=== PATIENT | female | born 1970 | race African-American/Black ===

== ENCOUNTER 2016-06-25 15:48 | Emergency (ER) | payer SELFPAY ==
[~2016-06-25] VITALS: Ht 152.4 cm; Wt 122.2 kg
[~2016-06-25 15:48] MED LIST: ALBU18HF2 IH; FLUT1DIS3 ORAL INH; HYDR12.54 PO; LISI40TA4 PO; METF500T4 PO; PRED10TA PO
[2016-06-25 15:52] VITALS: Ht 152.4 cm; Wt 122.2 kg
--- OUTSIDE RECORDS SUMMARY | 2016-06-25 15:52 | XMS REPORT | Continuity Of Care Document ---
Author Author [facility] Organization [facility] Address [address] [place] [address] Phone Care Team Providers Care De Alcholizer Name Role Phone MARCELA ZULETA MD CP LYNN ODONNELL, R AT [phone] MICHELLE ODONNELL, C AD Results Lab Results Visit/Account #[id number] (November 23, 2013 2:01pm - November 24, 2013 12:38pm) Test Result Date/Time POCGL POCGL(70-105 MG/DL) 307 MG/DL November 23, 2013 11:55pm 182 MG/DL November 24, 2013 7:05am 44117-7: COMPLETE BLOOD COUNT WITH DIFF WHITE BLOOD COUNT(4.0-11.0 10E3/UL) 3.2 10E3/UL November 23, 2013 2:29pm RED BLOOD COUNT(4.00-5.20 10E6/UL) 4.70 10E6/UL November 23, 2013 2:29pm HEMOGLOBIN(12.0-16.0 G/DL) 14.6 G/DL November 23, 2013 2:29pm HEMATOCRIT(36.0-46.0 %) 40.2 % November 23, 2013 2:29pm 59257-2: MEAN CORPUSCULAR VOLUME(82.0-100.0 FL) 85.5 FL November 23, 2013 2:29pm 03464-6: MEAN CORPUSCULAR HEMOGLOBIN(26.0-34.0 PG) 31.1 PG November 23, 2013 2:29pm MEAN CORPUSCULAR HGB CONC(31.5-36.5 G/DL) 36.3 G/DL November 23, 2013 2:29pm RED CELL DISTRIBUTION WIDTH(11.5-14.5 %) 12.5 % November 23, 2013 2:29pm 777-3: PLATELET COUNT(150-450 10E3/UL) 262 10E3/UL November 23, 2013 2:29pm MEAN PLATELET VOLUME(8.2-12.4 FL) 9.8 FL November 23, 2013 2:29pm 770-8: NEUTROPHILS % (AUTO)(40-70 %) 45 % November 23, 2013 2:29pm LYMPHOCYTES % (AUTO)(15-45 %) 39 % November 23, 2013 2:29pm 5905-5: MONOCYTES % (AUTO)(2-10 %) 6 % November 23, 2013 2:29pm 713-8: EOSINOPHILS % (AUTO)(0-6 %) 8 % November 23, 2013 2:29pm 706-2: BASOPHILS % (AUTO)(0-1 %) 1 % November 23, 2013 2:29pm 91058-4: IMMATURE GRANS % (AUTO)(0-0 %) 0 % November 23, 2013 2:29pm NUCLEATED RBCS (AUTO)(0-0 %) 0 % November 23, 2013 2:29pm 751-8: NEUTROPHILS # (AUTO)(2.5-7.5 10E3/UL) 1.5 10E3/UL November 23, 2013 2:29pm 46975-5: LYMPHOCYTES # (AUTO)(1.0-4.0 10E3/UL) 1.2 10E3/UL November 23, 2013 2:29pm 742-7: MONOCYTES # (AUTO)(0.2-0.8 10E3/UL) 0.2 10E3/UL November 23, 2013 2:29pm 711-2: EOSINOPHILS # (AUTO)(0.0-0.4 10E3/UL) 0.3 10E3/UL November 23, 2013 2:29pm 704-7: BASOPHILS # (AUTO)(0.0-0.2 10E3/UL) 0.0 10E3/UL November 23, 2013 2:29pm IMMATURE GRANS # (AUTO)(0.0-0.0 10E3/UL) 0.0 10E3/UL November 23, 2013 2:29pm DIFF TYPE AUTOMATED November 23, 2013 2:29pm 86764-3: COMPLETE BLOOD COUNT WHITE BLOOD COUNT(4.0-11.0 10E3/UL) 4.5 10E3/UL November 24, 2013 2:16am RED BLOOD COUNT(4.00-5.20 10E6/UL) 4.47 10E6/UL November 24, 2013 2:16am HEMOGLOBIN(12.0-16.0 G/DL) 14.0 G/DL November 24, 2013 2:16am HEMATOCRIT(36.0-46.0 %) 38.6 % November 24, 2013 2:16am 28930-6: MEAN CORPUSCULAR VOLUME(82.0-100.0 FL) 86.4 FL November 24, 2013 2:16am 68547-5: MEAN CORPUSCULAR HEMOGLOBIN(26.0-34.0 PG) 31.3 PG November 24, 2013 2:16am MEAN CORPUSCULAR HGB CONC(31.5-36.5 G/DL) 36.3 G/DL November 24, 2013 2:16am RED CELL DISTRIBUTION WIDTH(11.5-14.5 %) 12.4 % November 24, 2013 2:16am 777-3: PLATELET COUNT(150-450 10E3/UL) 221 10E3/UL November 24, 2013 2:16am MEAN PLATELET VOLUME(8.2-12.4 FL) 9.6 FL November 24, 2013 2:16am NUCLEATED RBCS (AUTO)(0-0 %) 0 % November 24, 2013 2:16am 48191-0: PROTHROMBIN TIME WITH INR PROTHROMBIN TIME(12.1-14.0 SEC) 13.5 SEC November 23, 2013 2:36pm 38872-4: INR 1.05 Result Comments: INR reference interval applies to patients on anticoagulant therapy. Suggested INR therapeutic range for oral anticoagulant therapy: (Stabilized anticoagulated patients) Routine Therapy: 2.0 to 3.0 Recurrent Myocardial Infarction: 2.5 to 3.5 Mechanical Prosthetic Valves: 2.5 to 3.5 November 23, 2013 2:36pm BASIC METABOLIC PANEL 75824-6: GLUCOSE(70-110 MG/DL) 124 MG/DL November 23, 2013 2:46pm 205 MG/DL November 24, 2013 2:28am BLOOD UREA NITROGEN(6-20 MG/DL) 11 MG/DL November 23, 2013 2:46pm 15 MG/DL November 24, 2013 2:28am 66554-7: CREATININE(0.50-1.20 MG/DL) 1.26 MG/DL November 23, 2013 2:46pm 1.11 MG/DL November 24, 2013 2:28am 23263-9: EST GLOMERULAR FILTRATION RATE(Greater than or equal to 60) 46 Result Comments: If the patient is of -[place] descent/extraction multiply the eGFR value by 1.212 to obtain the actual eGFR. >=60 mg/dL Normal 30-59 mg/dL Moderate Kidney Disease 15-29 mg/dL Severe Kidney Disease <15 mg/dL Kidney Failure November 23, 2013 2:46pm 53 Result Comments: If the patient is of -[place] descent/extraction multiply the eGFR value by 1.212 to obtain the actual eGFR. >=60 mg/dL Normal 30-59 mg/dL Moderate Kidney Disease 15-29 mg/dL Severe Kidney Disease <15 mg/dL Kidney Failure November 24, 2013 2:28am BUN CREATININE RATIO(10.0-20.0 RATIO) 9.0 RATIO November 23, 2013 2:46pm 14.0 RATIO November 24, 2013 2:28am 63561-5: SODIUM(135-145 MMOL/L) 137 MMOL/L November 23, 2013 2:46pm 134 MMOL/L November 24, 2013 2:28am 95940-0: POTASSIUM(3.6-5.0 MMOL/L) 3.8 MMOL/L November 23, 2013 2:47pm 4.1 MMOL/L November 24, 2013 2:28am 75733-2: CHLORIDE(101-111 MMOL/L) 106 MMOL/L November 23, 2013 2:47pm 105 MMOL/L November 24, 2013 2:28am 8-9: CO2(21-31 MMOL/L) 26.0 MMOL/L November 23, 2013 2:47pm 22.0 MMOL/L November 24, 2013 2:28am 37123-0: ANION GAP(8-18) 9 November 23, 2013 2:47pm 11 November 24, 2013 2:28am OSMO CALCULATED(270.0-290.0) 274.6 November 23, 2013 2:47pm 275.0 November 24, 2013 2:28am CALCIUM(8.5-10.5 MG/DL) 8.8 MG/DL November 23, 2013 2:47pm 9.0 MG/DL November 24, 2013 2:28am TOTAL CPK TOTAL CPK(22-269 U/L) 95 U/L November 23, 2013 8:39pm 85 U/L November 24, 2013 2:40am CPK MB CPK MB(0.6-6.3 NG/ML) 0.9 NG/ML November 23, 2013 8:39pm 0.9 NG/ML November 24, 2013 2:40am 59301-3: CARDIAC TROPONIN I 52102-2: CARDIAC TROPONIN I(0.01-0.04 NG/ML) 0.01 NG/ML Result Comments: REFERENCE RANGES: NEGATIVE < 0.04 NG/ML POSSIBLE MYCARDIAL INVOLVEMENT >/=0.04 NG/ML INTERPRET TROPONIN I RESULT IN LIGHT OF THE TOTAL CLINICAL PRESENTATION INCLUDING CLINICAL HISTORY. ANY CONDITION RESULTING IN MYOCARDIAL INJURY CAN POTENTIALLY ELEVATE TROPONIN I LEVELS ABOVE EXPECTED NORMAL RANGES. NOTE NEW REFERENCE RANGE November 23, 2013 3:00pm Less than 0.01 NG/ML Result Comments: REFERENCE RANGES: NEGATIVE < 0.04 NG/ML POSSIBLE MYCARDIAL INVOLVEMENT >/=0.04 NG/ML INTERPRET TROPONIN I RESULT IN LIGHT OF THE TOTAL CLINICAL PRESENTATION INCLUDING CLINICAL HISTORY. ANY CONDITION RESULTING IN MYOCARDIAL INJURY CAN POTENTIALLY ELEVATE TROPONIN I LEVELS ABOVE EXPECTED NORMAL RANGES. NOTE NEW REFERENCE RANGE November 23, 2013 8:39pm Less than 0.01 NG/ML Result Comments: REFERENCE RANGES: NEGATIVE < 0.04 NG/ML POSSIBLE MYCARDIAL INVOLVEMENT >/=0.04 NG/ML INTERPRET TROPONIN I RESULT IN LIGHT OF THE TOTAL CLINICAL PRESENTATION INCLUDING CLINICAL HISTORY. ANY CONDITION RESULTING IN MYOCARDIAL INJURY CAN POTENTIALLY ELEVATE TROPONIN I LEVELS ABOVE EXPECTED NORMAL RANGES. NOTE NEW REFERENCE RANGE November 24, 2013 2:40am 65092-2: BETA NATRIURETIC PEPTIDE 71507-8: BETA NATRIURETIC PEPTIDE(0-100 PG/ML) 42 PG/ML November 23, 2013 3:17pm Microbiology Results Visit/Account #[id number] (November 23, 2013 2:01pm - November 24, 2013 12:38pm) Procedure Result 6460-0: SPUTUM CULTURE 6460-0: SPUTUM CULTURE Result Instance On November 25, 2013 8:33am Source: SPUTUM Organism: [id number] ([email or web address]) ROUTINE RESPIRATORY MARCELO 26534-8: MRSA SCREEN FOR INFEC CONTROL 75307-5: MRSA SCREEN FOR INFEC CONTROL Result Instance On November 25, 2013 12:04pm Source: NARE Special Result Comments: No growth 648-6: SPUTUM GRAM STAIN 648-6: SPUTUM GRAM STAIN Result Instance On November 24, 2013 10:03am Source: SPUTUM Result Prompts: SPUTUM GRADE GRADE 6 (ADEQUATE): <25 WBC/LPF; <10 EPITHELIAL CELLS/LPF WBC/HPF 0-5 BACTERIA SEEN 1+ MIXED MARCELO Allergies and Adverse Reactions Allergies and Adverse Reactions Patient Unit Number: [id number] Agent Type Reaction Severity Status Date NO KNOWN ALLERGIES Drug Allergy Unknown Mild Active Unknown Date Problem List Problem List Visit/Account #[id number] (November 23, 2013 2:01pm - November 24, 2013 12:38pm) Acute Problems: Code/Condition Comments Documented Start Date Documented Resolved Date Code (s) COPD exacerbation ICD10: J44.1 Obstructive chronic bronchitis with exacerbation ICD9: 491.21 Obstructive chronic bronchitis with exacerbation SNOMED: 985759510 Obstructive chronic bronchitis with exacerbation COPD exacerbation ICD10: J44.1 Obstructive chronic bronchitis with exacerbation ICD9: 491.21 Obstructive chronic bronchitis with exacerbation SNOMED: 776401777 Obstructive chronic bronchitis with exacerbation Chest pain ICD10: R07.9 Chest pain ICD9: 786.50 Chest pain SNOMED: 16871183 Chest pain Plan of Care Plan Of Care Visit/Account #[id number] (November 23, 2013 2:01pm - November 24, 2013 12:38pm) Instructions/Comments: Chronic Obstructive Pulmonary Disease Vital Signs Vital Signs Visit/Account #[id number] (November 23, 2013 2:01pm - November 24, 2013 12:38pm) Label First Result Last Result 2710-2: O2% 95 % November 23, 2013 5:57pm 96 % November 24, 2013 9:29am 3141-9: Weight Measured 236 lbs November 23, 2013 1:58pm 107.661741 kg November 23, 2013 1:58pm 8310-5: Body Temperature 98.3 degF November 23, 2013 1:58pm 8310-5: Celsius Body Temperature 36.43336 Alyse November 23, 2013 5:57pm 35.29814 Alyse November 24, 2013 9:29am 8310-5: [facility] Body Temperature 96.4 [degF] November 24, 2013 9:29am 8480-6: BP Systolic 131/ mmHg November 23, 2013 1:58pm 123/77 mm[Hg] November 24, 2013 9:29am 8867-4: Heart Rate 86 /min November 23, 2013 1:58pm 71 /min November 24, 2013 9:29am 9279-1: Respiratory Rate 24 /min November 23, 2013 1:58pm 16 /min November 24, 2013 9:29am Unmapped Query Mnemonic (RESP.SAT) Saturation 97 % November 23, 2013 1:58pm 97 % November 23, 2013 1:58pm Unmapped Query Mnemonic (VS.BMI) Body Mass Index (BMI) 46 November 23, 2013 1:58pm 46 November 23, 2013 1:58pm Functional Status Functional Status No Functional Status Data Medications Home Medications Visit/Account #[id number] (November 23, 2013 2:01pm - November 24, 2013 12:38pm) Medication Route Sig/Schedule Precondition/Indication Comments/Instructions Codes GLUCOPHAGE(MetFORMin HCL) 500 MG TAB ORAL BIDWM: WITH BREAKFAST & SUPPER GLUCOPHAGE (MetFORMin HCL) RxNorm: H554166 GLUCOPHAGE (MetFORMin HCL) RxNorm: W228358 GLUCOPHAGE (MetFORMin HCL) NDC: 40000717109 Lisinopril(LISINOPRIL) 20 MG TABLET ORAL DAILY: DAILY Lisinopril (LISINOPRIL) RxNorm: L451117 Lisinopril (LISINOPRIL) NDC: 98619429976 VENTOLIN 0.5% NEBS (use for MED REC)(ALBUTEROL SULF) 2.5 MG/0.5 ML INHALER INHALED 4XD: 4 TIMES DAILY VENTOLIN 0.5% NEBS (use for MED REC) (ALBUTEROL SULF) RxNorm: N950121 VENTOLIN 0.5% NEBS (use for MED REC) (ALBUTEROL SULF) NDC: 26196928631 LEVAQUIN(LEVOFLOXACIN) 500 MG TAB ORAL DAILY@10 LEVAQUIN (LEVOFLOXACIN) RxNorm: U657785 LEVAQUIN (LEVOFLOXACIN) RxNorm: A823302 LEVAQUIN (LEVOFLOXACIN) NDC: 67872867252 ATROVENT 0.02% NEB(IPRATROPIUM BROMIDE) 0.5 MG/2.5 ML SOLUTION INHALED Q6H ATROVENT 0.02% NEB (IPRATROPIUM BROMIDE) RxNorm: P046113 ATROVENT 0.02% NEB (IPRATROPIUM BROMIDE) NDC: 38127423613 VENTOLIN 0.5% NEBS (use for MED REC)(ALBUTEROL SULF) 2.5 MG/0.5 ML INHALER INHALED Q6H VENTOLIN 0.5% NEBS (use for MED REC) (ALBUTEROL SULF) RxNorm: S733145 VENTOLIN 0.5% NEBS (use for MED REC) (ALBUTEROL SULF) NDC: 04012895248 VENTOLIN 0.5% NEBS (use for MED REC)(ALBUTEROL SULF) 2.5 MG/0.5 ML INHALER INHALED Q2H VENTOLIN 0.5% NEBS (use for MED REC) (ALBUTEROL SULF) RxNorm: W830058 VENTOLIN 0.5% NEBS (use for MED REC) (ALBUTEROL SULF) NDC: 93405662382 Aspirin Chew(ASPIRIN) 81 MG TAB ORAL DAILY: DAILY Aspirin Chew (ASPIRIN) NDC: 31504751481 DELTASONE(PredniSONE) 20 MG TAB ORAL DAILYB: DAILY AT [facility] Rx Instructions: Take 60 mg daily for 3 days then, take 40 mg daily for 3 days then, take 20 mg daily for 3 days then, take 10 mg daily until gone. DELTASONE (PredniSONE) RxNorm: H144052 DELTASONE (PredniSONE) NDC: 26297591496 TUSSIN COUGH & COLD CF LIQUID(GUAIFENESIN/D-METHORPHAN HB/PE) 118 ML LIQUID ORAL TID: 3 TIMES A DAY TUSSIN COUGH & COLD CF LIQUID (GUAIFENESIN/D-METHORPHAN HB/PE) RxNorm: K3380453 TUSSIN COUGH & COLD CF LIQUID (GUAIFENESIN/D-METHORPHAN HB/PE) NDC: 77065193164 Inpatient/Ordered Medications Visit/Account #[id number] (November 23, 2013 2:01pm - November 24, 2013 12:38pm) Medication Route Sig/Schedule Precondition/Indication Comments/Instructions Codes VENTOLIN 0.5% NEB(ALBUTEROL SULF) 2.5 MG/0.5 ML INHALER Total Dose: 2.5 MG INHALED NOW: NOW Rx Order Comments: Order placed as verified: Dose Warnings differ from order picker Dose Warnings differ from order picker VENTOLIN 0.5% NEB (ALBUTEROL SULF) RxNorm: K162648 VENTOLIN 0.5% NEB (ALBUTEROL SULF) NDC: 08264080825 VENTOLIN 0.5% NEB(ALBUTEROL SULF) 2.5 MG/0.5 ML INHALER Total Dose: 5 ML INHALED NOW: NOW Rx Order Comments: Order placed as verified: Allergies/Duplicates/Interactions differ from order picker Dose Warnings differ from order picker VENTOLIN 0.5% NEB (ALBUTEROL SULF) RxNorm: J335588 VENTOLIN 0.5% NEB (ALBUTEROL SULF) NDC: 13592047893 Solu-MEDROL INJ(MethylPREDNISolone SOD SUCC) 125 MG/2 ML INJECTION Total Dose: 125 MG INTRAVEN NOW: NOW Rx Order Comments: Order placed as verified: Allergies/Duplicates/Interactions differ from order picker Dose Warnings differ from order picker Solu-MEDROL INJ (MethylPREDNISolone SOD SUCC) RxNorm: H706391 Solu-MEDROL INJ (MethylPREDNISolone SOD SUCC) RxNorm: O451721 Solu-MEDROL INJ (MethylPREDNISolone SOD SUCC) NDC: 43011191805 ASPIRIN 324 MG TAB Total Dose: 324 MG ORAL NOW: NOW Rx Order Comments: Order placed as verified: Allergies/Duplicates/Interactions differ from order picker Dose Warnings differ from order picker Special Dose Instructions: CHEW (ASPIRIN) RxNorm: Y712767 (ASPIRIN) NDC: 96401775354 VENTOLIN 0.5% NEB(ALBUTEROL SULF) 2.5 MG/0.5 ML INHALER Total Dose: 7.5 ML INHALED NOW: NOW Rx Order Comments: Order placed as verified: Allergies/Duplicates/Interactions differ from order picker Dose Warnings differ from order picker VENTOLIN 0.5% NEB (ALBUTEROL SULF) RxNorm: R886121 VENTOLIN 0.5% NEB (ALBUTEROL SULF) NDC: 56639917568 LEVAQUIN(LEVOFLOXACIN) 500 MG TAB Total Dose: 500 MG ORAL DAILY@10 Label Comments: Take 2 hrs before or after antacids, sucralfate, metal cations(iron), or multi-vitamins LEVAQUIN (LEVOFLOXACIN) RxNorm: O561268 LEVAQUIN (LEVOFLOXACIN) RxNorm: F759475 LEVAQUIN (LEVOFLOXACIN) NDC: 91929057742 VENTOLIN 0.5% NEB(ALBUTEROL SULF) 2.5 MG/0.5 ML INHALER Total Dose: 2.5 MG INHALED RT4XD: 4 TIMES DAILY VENTOLIN 0.5% NEB (ALBUTEROL SULF) RxNorm: L755300 VENTOLIN 0.5% NEB (ALBUTEROL SULF) NDC: 94293358304 SPIRIVA(TIOTROPIUM) 18 MCG/CAP CAP Total Dose: 18 MCG INHALED RTDAILY: DAILY Label Comments: inhale contents of capsule with handihaler SPIRIVA (TIOTROPIUM) RxNorm: U776435 SPIRIVA (TIOTROPIUM) RxNorm: F449891 SPIRIVA (TIOTROPIUM) NDC: 12908069204 DELTASONE(PredniSONE) 20 MG TAB Total Dose: 60 MG ORAL DAILYB: DAILY AT [facility] Label Comments: take with food or milk DELTASONE (PredniSONE) RxNorm: T953153 DELTASONE (PredniSONE) NDC: 37555820954 LEVAQUIN(LEVOFLOXACIN) 500 MG TAB Total Dose: 500 MG ORAL NOW: NOW Label Comments: Take 2 hrs before or after antacids, sucralfate, metal cations(iron), or multi-vitamins LEVAQUIN (LEVOFLOXACIN) RxNorm: B889414 LEVAQUIN (LEVOFLOXACIN) RxNorm: I247907 LEVAQUIN (LEVOFLOXACIN) NDC: 02837000003 LOVENOX(ENOXAPARIN) 40 MG/0.4 ML INJECTION Total Dose: 40 MG SUBCUTANEOUSLY DAILY@07 Label Comments: INJECT SC INTO ABDOMINAL WALL ONLY. LOVENOX (ENOXAPARIN) RxNorm: K259448 LOVENOX (ENOXAPARIN) RxNorm: V297878 LOVENOX (ENOXAPARIN) NDC: 07775313820 Discharge Medications Visit/Account #[id number] (November 23, 2013 2:01pm - November 24, 2013 12:38pm) Medication Route Sig/Schedule Precondition/Indication Comments/Instructions Codes GLUCOPHAGE(MetFORMin HCL) 500 MG TAB ORAL BIDWM: WITH BREAKFAST & SUPPER GLUCOPHAGE (MetFORMin HCL) RxNorm: I390982 GLUCOPHAGE (MetFORMin HCL) RxNorm: N161591 GLUCOPHAGE (MetFORMin HCL) NDC: 63396439527 Lisinopril(LISINOPRIL) 20 MG TABLET ORAL DAILY: DAILY Lisinopril (LISINOPRIL) RxNorm: I248536 Lisinopril (LISINOPRIL) NDC: 99784253925 VENTOLIN 0.5% NEBS (use for MED REC)(ALBUTEROL SULF) 2.5 MG/0.5 ML INHALER INHALED 4XD: 4 TIMES DAILY VENTOLIN 0.5% NEBS (use for MED REC) (ALBUTEROL SULF) RxNorm: L532471 VENTOLIN 0.5% NEBS (use for MED REC) (ALBUTEROL SULF) NDC: 97782037556 VENTOLIN 0.5% NEBS (use for MED REC)(ALBUTEROL SULF) 2.5 MG/0.5 ML INHALER INHALED Q2H VENTOLIN 0.5% NEBS (use for MED REC) (ALBUTEROL SULF) RxNorm: A109024 VENTOLIN 0.5% NEBS (use for MED REC) (ALBUTEROL SULF) NDC: 43838334346 Aspirin Chew(ASPIRIN) 81 MG TAB ORAL DAILY: DAILY Aspirin Chew (ASPIRIN) NDC: 85297818806 SPIRIVA(TIOTROPIUM) 18 MCG CAP INHALED RTDAILY: DAILY SPIRIVA (TIOTROPIUM) RxNorm: Q971461 SPIRIVA (TIOTROPIUM) RxNorm: W165271 SPIRIVA (TIOTROPIUM) NDC: 68779079141 DELTASONE(PredniSONE) 20 MG TAB ORAL DIRECTED: DIRECTED Rx Instructions: Take 60mg x 3 days then take 40mg x 3 days then take 20 mg x 3 days then take 10 mg until gone. DELTASONE (PredniSONE) RxNorm: V414657 DELTASONE (PredniSONE) NDC: 59381056433 Motrin(IBUPROFEN) 400 MG TAB ORAL Q4H Motrin (IBUPROFEN) NDC: 24252237544 History Of Encounters Encounters Visit/Account #[id number] (November 23, 2013 2:01pm - November 24, 2013 12:38pm) Account Status Physican Of Record Reason For Visit Visit Diagnosis Start Date/Time Stop Date/Time JOSE ZULETA MD COPD EXACERBATION 493.22: CHRONIC OBSTRUCTIVE ASTHMA, W (ACUTE) EXACERBATION ICD9 Nov 23, 2013 2:01pm Nov 23, 2013 3:45pm Florencio BAILEY MD COPD EXACERBATION 493.22: CHRONIC OBSTRUCTIVE ASTHMA, W (ACUTE) EXACERBATION ICD9 Nov 23, 2013 3:45pm Nov 24, 2013 12:38pm History of Procedures Procedure List No Procedures Discharge Instructions Discharge Instructions Visit/Account #[id number] (November 23, 2013 2:01pm - November 24, 2013 12:38pm) Department: MEDICAL RECORDS [ Report: GEN DC SUMMARY ] Dictated By: BACILIO BARBOZA MD Signed By: BACILIO BARBOZA MD [address] [address] Name: MARY DU UNIT/MR#: [id number] : 1970 Age: 43 Sex: F Report#: [id number] WILLIAM BAILEY MD Adm Date: 11/23/13 PCP: [facility] Date: 11/24 Dictated By: BACILIO BARBOZA MD - (PGY3) ~GEN DC SUMMARY~ Signed DC SUMMARY Date of Service: Nov 25, 2013 Time of Service: 11:30 Note: Date of Admit: 11/23/13 Date of Discharge: 11/24/13 Admission Diagnoses: 1. Chronic obstructive pulmonary disease exacerbation. 2. Chest pain. 3. Diabetes, type 2. 4. Tobacco use disorder. 5. Hyperlipidemia. 6. Obstructive sleep apnea. 7. Slightly elevated creatinine Discharge Diagnoses: 1. Chronic obstructive pulmonary disease exacerbation: improved 2. Chest pain ruled out troponins negative x 3 sets 3. Diabetes, type 2. 4. Tobacco use disorder. 5. Hyperlipidemia. 6. Obstructive sleep apnea. 7. Slightly elevated creatinine Disposition:~ home Condition:~ good Consultations: none Procedures: CXR on 11/23, unremarkable chest. CXR on 11/24 no changes, unremarkable chest Admission HPI: The patient is a 43-year-old female, who presents with increased shortness of breath since Sunday and back pain with a deep inspiration.~ She states that she typically have shortness of breath, but has just increased over the last several days.~ She takes albuterol inhaler every 4-5 hours, however, she has been recurring every 2 hours and has been taking her Spiriva daily.~ She does not use oxygen at home.~ She does state that she has had some chills, but no fever.~ Denies any nausea or vomiting.~ States that she has not had any sputum production with this acute exacerbation.~ She currently lives at [facility] and staff worker said that they can hear loose fluids in her lungs when she sleeps.~ She was just recently seen at [facility] [place] for cellulitis infection and she was started on Bactrim, she is currently on day #3 of Bactrim.~ She states that she has increased shortness of breath on exertion, but this is normal, it is just worse recently.~ She states the pain is localized to the substernal region and inner shoulder blades.~ Denies any upper respiratory infection.~ Has a history of DVT in the left lower extremity and was on Coumadin for 3 years, but has not been on Coumadin for several years.~ Has a history of bilateral edema especially when she is up on her feet a lot.~ 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 ~ Emergency department workup:~ The patient was seen in the emergency department and given an hour of continuous albuterol and IV Solu-Medrol and did improve significantly.~ She never did require any oxygen and kept up very well on room air.~ Her cardiac enzymes within normal limits.~ All other labs were generally normal except with a slightly elevated creatinine of 1.26.~ Because of her multiple risk factors and recent history of chest pain, it was decided to admit for COPD exacerbation and to rule out DC. Hospital Course: Admitted 11/23 for chest pain and COPD exacerbation. CP resolved. Troponins normal. COPD improved sats 98 on RA. Ok for discharge home today with follow up at completion of 5 day course of levaquin/prednisone taper. Discharge Physical Exam: General: obese Well appearing, well nourished in no distress.~ Oriented , normal mood and affect. Skin: good turgor, no rash or~ prominent lesions Head: normocephalic, atraumatic Heart: normal rate and regular rhythm; no murmur, rub or gallop Lungs: clear to auscultation Abdomen: bowel sounds nl, no tenderness, organomegaly, masses,~ or hernia Extremities: no amputations or deformities, cyanosis, edema or varicosities, peripheral pulses intact Discharge Medications: per [facility] Discharge Routine Discharge Diet: ada 2000 Discharge Activity: as tolerated Sidhu Information for [facility] To Know or Follow: 1. follow up in 5-10 days after completion of Levaquin to f/u copd. 2. Given chest pain, it would be prudent to have scheduled for a stress test as an outpatient. Social Service Needs: none Problem List Problems: (1) Chest pain (2) COPD exacerbation (3) DM type 2 (diabetes mellitus, type 2) (4) Hyperlipemia Medications/Allergies MEDICATIONS Scheduled ALBUTEROL SULF 0.5% NEBS (use for MED REC) (VENTOLIN 0.5% NEBS (use for MED REC) ) 2.5 MG INH 4XD (Reported) Aspirin (Aspirin Chew) 81 MG PO DAILY Lisinopril (Lisinopril) 20 MG PO DAILY (Reported) METFORMin HCL (Glucophage) 500 MG PO BIDWM (Reported) PREdniSONE (Deltasone) 60 MG PO DIRECTED Tiotropium (Spiriva) 18 MCG INH RTDAILY Scheduled PRN ALBUTEROL SULF 0.5% NEBS (use for MED REC) (VENTOLIN 0.5% NEBS (use for MED REC) ) 2.5 MG INH Q2H PRN PRN SHORTNESS OF BREATH/WHEEZING Ibuprofen (Motrin) 400 MG PO Q4H PRN PRN PAIN Discontinued Medications ALBUTEROL SULF 0.5% NEBS (use for MED REC) (VENTOLIN 0.5% NEBS (use for MED REC) ) 2.5 MG INH Q6H Discontinued Reason: Stopped Guaifenesin/D-Methorphan Hb/Pe (Tussin Cough & Cold Cf Liquid) 118 ML PO TID Discontinued Reason: Stopped Ipratropium [place] 0.02% Neb (Atrovent 0.02% Neb) 0.5 MG INH Q6H Discontinued Reason: Stopped Levofloxacin (Levaquin) 500 MG PO DAILY@10 Discontinued Reason: Stopped PREdniSONE (Deltasone) 60 MG PO DAILYB Discontinued Reason: Stopped ALLERGIES Allergies: Coded Allergies: NO KNOWN ALLERGIES (Verified , 06/26/08) BACILIO BARBOZA MD - ([id number]) Nov 25, 2013 11:31 Signed By: BACILIO BARBOZA MD 11/25/13 1131 WILLIAM BAILEY MD 11/27/13 1219 Social History Social History Visit/Account #[id number] (November 23, 2013 2:01pm - November 24, 2013 12:38pm) Smoking Status Current every day smoker November 23, 2013 2:05pm Immunizations Immunizations Patient Unit Number: [id number] Immunizations No Immunizations Administered
--- OUTSIDE RECORDS SUMMARY | 2016-06-25 15:52 | XMS REPORT | Continuity Of Care Document ---
Author Author [facility] Organization [facility] Address [address] [place] [address] Phone Care Team Providers Care Nut Sheller Name Role Phone AUGUSTUS ODONNELL, T PP UNASSIGNED, PHYSICIAN Unavailable Unavailable BERONICA ODONNELL, L AT Results Results No Result Data Allergies and Adverse Reactions Allergies and Adverse Reactions Patient Unit Number: [id number] Agent Type Reaction Severity Status Date NO KNOWN ALLERGIES Drug Allergy Unknown Mild Active Unknown Date Problem List Problem List Visit/Account #[id number] (July 19, 2013 3:10pm - July 19, 2013 5:23pm) Acute Problems: Code/Condition Comments Documented Start Date Documented Resolved Date Code (s) Headache ICD10: R51 Headache ICD9: 784.0 Headache SNOMED: 87900888 Headache Plan of Care Plan Of Care Visit/Account #[id number] (July 19, 2013 3:10pm - July 19, 2013 5:23pm) Instructions/Comments: DI for Headache Drink plenty of fluids, rest. Follow-up with your primary care physician as soon as possible to get restarted on all of your medications. Return if symptoms worsen. Vital Signs Vital Signs Visit/Account #[id number] (July 19, 2013 3:10pm - July 19, 2013 5:23pm) Label First Result Last Result 3141-9: Weight Measured 237 lbs July 19, 2013 3:09pm 107.824051 kg July 19, 2013 3:09pm 8310-5: Body Temperature 98.5 degF July 19, 2013 3:09pm 8310-5: Fahrenheit Body Temperature 98.7 [degF] July 19, 2013 5:12pm 8480-6: BP Systolic 134/ mmHg July 19, 2013 3:09pm 84/ mm[Hg] July 19, 2013 5:12pm 8867-4: Heart Rate 85 /min July 19, 2013 3:09pm 93 /min July 19, 2013 5:12pm 9279-1: Respiratory Rate 17 /min July 19, 2013 3:09pm 18 /min July 19, 2013 5:12pm Unmapped Query Mnemonic (RESP.SAT) Saturation 98 % July 19, 2013 3:09pm 98 % July 19, 2013 3:09pm Unmapped Query Mnemonic (VS.BMI) Body Mass Index (BMI) 46 July 19, 2013 3:09pm 46 July 19, 2013 3:09pm Functional Status Functional Status No Functional Status Data Medications Inpatient/Ordered Medications Visit/Account #[id number] (July 19, 2013 3:10pm - July 19, 2013 5:23pm) Medication Route Sig/Schedule Precondition/Indication Comments/Instructions Codes VENTOLIN 0.5% NEB(ALBUTEROL SULF) 2.5 MG/0.5 ML INHALER Total Dose: 2.5 MG INHALED NOW: NOW Rx Order Comments: Order placed as verified: Allergies/Duplicates/Interactions differ from customs and border protection inspector Dose Warnings differ from customs and border protection inspector VENTOLIN 0.5% NEB (ALBUTEROL SULF) RxNorm: [id number] VENTOLIN 0.5% NEB (ALBUTEROL SULF) NDC: 70735514242 ATROVENT 0.02% NEB(IPRATROPIUM BROMIDE) 0.5 MG/2.5 ML SOLUTION Total Dose: 0.5 MG INHALED NOW: NOW Rx Order Comments: Order placed as verified: Allergies/Duplicates/Interactions differ from customs and border protection inspector Dose Warnings differ from customs and border protection inspector ATROVENT 0.02% NEB (IPRATROPIUM BROMIDE) RxNorm: Z196893 ATROVENT 0.02% NEB (IPRATROPIUM BROMIDE) NDC: 68054191313 IV Medication Carriers: NORMAL SALINE(SODIUM CHLORIDE) 1000 ML INJECTION Total Dose: 500 ML INTRAVEN .Q30M (Rate: 1000 MLS/HR Duration: 30 MIN) Rx Order Comments: Order placed as verified: Allergies/Duplicates/Interactions differ from customs and border protection inspector Dose Warnings differ from customs and border protection inspector Carriers: NORMAL SALINE (SODIUM CHLORIDE) RxNorm: Q746731 NORMAL SALINE (SODIUM CHLORIDE) NDC: 32457674671 TORADOL INJ(KETOROLAC TROMETHAMINE) 30 MG/ML INJECTION Total Dose: 30 MG INTRAVEN NOW: NOW Rx Order Comments: Order placed as verified: Allergies/Duplicates/Interactions differ from customs and border protection inspector Dose Warnings differ from customs and border protection inspector Label Comments: DO NOT EXCEED 5 DAYS OF THERAPY TORADOL INJ (KETOROLAC TROMETHAMINE) RxNorm: V317613 TORADOL INJ (KETOROLAC TROMETHAMINE) NDC: 34761402365 PHENERGAN INJ(PROMETHazine HCL) 25 MG/ML INJECTION Total Dose: 25 MG INTRAVEN NOW: NOW Rx Order Comments: Order placed as verified: Allergies/Duplicates/Interactions differ from customs and border protection inspector Dose Warnings differ from customs and border protection inspector Label Comments: For IV use dilute 1 ml with 9 ml of NS and administer through large bore vein (avoiding hand or wrist veins. Give over 10-15 minutes. Administration of diluted product with free-flowing IV decreases patient risk of tissue damage. Patients should be advised to notify the nurse immediately if they experience pain or burning during or after the injection MAY INCREASE FALL RISK PHENERGAN INJ (PROMETHazine HCL) RxNorm: Q946210 PHENERGAN INJ (PROMETHazine HCL) NDC: 79207840464 BENADRYL INJ(DiphenhydrAMINE HCL) 50 MG/ML INJECTION Total Dose: 50 MG INTRAVEN NOW: NOW Rx Order Comments: Order placed as verified: Allergies/Duplicates/Interactions differ from customs and border protection inspector Dose Warnings differ from customs and border protection inspector Label Comments: MAY INCREASE FALL RISK BENADRYL INJ (DiphenhydrAMINE HCL) RxNorm: X4885392 BENADRYL INJ (DiphenhydrAMINE HCL) NDC: 46875903607 NORFLEX INJ(ORPHENADRINE CITRATE) 60 MG/2 ML INJECTION Total Dose: 60 MG INTRAVEN NOW: NOW Rx Order Comments: Order placed as verified: Allergies/Duplicates/Interactions differ from customs and border protection inspector Dose Warnings differ from customs and border protection inspector NORFLEX INJ (ORPHENADRINE CITRATE) RxNorm: M343078 NORFLEX INJ (ORPHENADRINE CITRATE) NDC: 94021914439 Discharge Medications Visit/Account #[id number] (July 19, 2013 3:10pm - July 19, 2013 5:23pm) Medication Route Sig/Schedule Precondition/Indication Comments/Instructions Codes Flexeril(CYCLOBENZAPRINE HCL) 10 MG TAB ORAL TID: 3 TIMES A DAY Flexeril (CYCLOBENZAPRINE HCL) RxNorm: Q648328 Flexeril (CYCLOBENZAPRINE HCL) NDC: 04787928602 PHENERGAN W/CODEINE 6.25-10 MG/5 ML SYRUP(PROMETHazine/CODEINE) 120 ML SYRUP ORAL Q8: EVERY 8 HOURS PHENERGAN W/CODEINE 6.25-10 MG/5 ML SYRUP (PROMETHazine/CODEINE) RxNorm: J037474 PHENERGAN W/CODEINE 6.25-10 MG/5 ML SYRUP (PROMETHazine/CODEINE) NDC: 27005874519 History Of Encounters Encounters Visit/Account #[id number] (July 19, 2013 3:10pm - July 19, 2013 5:23pm) Account Status Physican Of Record Reason For Visit Visit Diagnosis Start Date/Time Stop Date/Time ER JOSÉ ANTONIO LOCO MD HEADACHE 784.0: HEADACHE ICD9 Jul 19, 2013 3:10pm Jul 19, 2013 5:23pm History of Procedures Procedure List No Procedures Discharge Instructions Discharge Instructions Visit/Account #[id number] (July 19, 2013 3:10pm - July 19, 2013 5:23pm) No Discharge Instructions Reports. Social History Social History Visit/Account #[id number] (July 19, 2013 3:10pm - July 19, 2013 5:23pm) Smoking Status Current some day smoker July 19, 2013 3:09pm Immunizations Immunizations Patient Unit Number: [id number] Immunizations No Immunizations Administered
--- OUTSIDE RECORDS SUMMARY | 2016-06-25 15:52 | XMS REPORT | Continuity Of Care Document ---
Author Author [facility] Organization [facility] Address [address] [address] Phone Care Team Providers Care Bilingual Medical Receptionist Name Role Phone Rose COFFMAN MD AT UNASSIGNED, PHYSICIAN Unavailable Unavailable FAILES DO, E CP NON-PURPLE ST, SF PP Results Lab Results Visit/Account #[id number] (July 05, 2013 5:54pm - July 06, 2013 12:43am) Test Result Date/Time POCGL POCGL(70-105 MG/DL) 232 MG/DL July 06, 2013 5:49am 115 MG/DL July 06, 2013 11:20am 190 MG/DL July 06, 2013 11:44am 86977-4: COMPLETE BLOOD COUNT WITH DIFF WHITE BLOOD COUNT(4.0-11.0 10E3/UL) 5.9 10E3/UL July 05, 2013 6:17pm RED BLOOD COUNT(3.80-5.20 10E6/UL) 4.57 10E6/UL July 05, 2013 6:17pm HEMOGLOBIN(12.0-16.0 G/DL) 13.9 G/DL July 05, 2013 6:17pm HEMATOCRIT(36.0-48.0 %) 38.5 % July 05, 2013 6:17pm 26200-4: MEAN CORPUSCULAR VOLUME(80.0-100.0 FL) 84.2 FL July 05, 2013 6:17pm 45015-7: MEAN CORPUSCULAR HEMOGLOBIN(27.0-34.0 PG) 30.4 PG July 05, 2013 6:17pm MEAN CORPUSCULAR HGB CONC(33.0-37.0 G/DL) 36.1 G/DL July 05, 2013 6:17pm RED CELL DISTRIBUTION WIDTH(11.0-15.0 %) 12.8 % July 05, 2013 6:17pm 777-3: PLATELET COUNT(130-400 10E3/UL) 251 10E3/UL July 05, 2013 6:17pm MEAN PLATELET VOLUME(7.4-11.0 FL) 10.2 FL July 05, 2013 6:17pm 770-8: NEUTROPHILS % (AUTO)(40-70 %) 61 % July 05, 2013 6:17pm LYMPHOCYTES % (AUTO)(15-45 %) 25 % July 05, 2013 6:17pm 5905-5: MONOCYTES % (AUTO)(2-10 %) 5 % July 05, 2013 6:17pm 713-8: EOSINOPHILS % (AUTO)(0-6 %) 8 % July 05, 2013 6:17pm 706-2: BASOPHILS % (AUTO)(0-1 %) 1 % July 05, 2013 6:17pm 86786-8: IMMATURE GRANS % (AUTO)(0-0 %) 0 % July 05, 2013 6:17pm NUCLEATED RBCS (AUTO)(0-0 %) 0 % July 05, 2013 6:17pm 751-8: NEUTROPHILS # (AUTO)(2.5-7.5 10E3/UL) 3.6 10E3/UL July 05, 2013 6:17pm 98535-6: LYMPHOCYTES # (AUTO)(1.0-4.0 10E3/UL) 1.5 10E3/UL July 05, 2013 6:17pm 742-7: MONOCYTES # (AUTO)(0.2-0.8 10E3/UL) 0.3 10E3/UL July 05, 2013 6:17pm 711-2: EOSINOPHILS # (AUTO)(0.0-0.4 10E3/UL) 0.5 10E3/UL July 05, 2013 6:17pm 704-7: BASOPHILS # (AUTO)(0.0-0.2 10E3/UL) 0.1 10E3/UL July 05, 2013 6:17pm IMMATURE GRANS # (AUTO)(0.0-0.0 10E3/UL) 0.0 10E3/UL July 05, 2013 6:17pm DIFF TYPE AUTOMATED July 05, 2013 6:17pm CBC WITH REFLEXED MANUAL DIFF WHITE BLOOD COUNT(4.0-11.0 10E3/UL) 7.2 10E3/UL July 06, 2013 9:02am RED BLOOD COUNT(3.80-5.20 10E6/UL) 4.99 10E6/UL July 06, 2013 9:02am HEMOGLOBIN(12.0-16.0 G/DL) 14.8 G/DL July 06, 2013 9:02am HEMATOCRIT(36.0-48.0 %) 42.6 % July 06, 2013 9:02am 60519-8: MEAN CORPUSCULAR VOLUME(80.0-100.0 FL) 85.4 FL July 06, 2013 9:02am 13376-2: MEAN CORPUSCULAR HEMOGLOBIN(27.0-34.0 PG) 29.7 PG July 06, 2013 9:02am MEAN CORPUSCULAR HGB CONC(33.0-37.0 G/DL) 34.7 G/DL July 06, 2013 9:02am RED CELL DISTRIBUTION WIDTH(11.0-15.0 %) 12.4 % July 06, 2013 9:02am 777-3: PLATELET COUNT(130-400 10E3/UL) 266 10E3/UL July 06, 2013 9:02am MEAN PLATELET VOLUME(7.4-11.0 FL) 10.4 FL July 06, 2013 9:02am DIFF TYPE MANUAL July 06, 2013 9:02am NEUTROPHIL % (MANUAL)(40-70 %) 97 % July 06, 2013 9:33am LYMPHOCYTES % (MANUAL)(15-45 %) 3 % July 06, 2013 9:33am MONOCYTES % (MANUAL)(2-10 %) 0 % July 06, 2013 9:07am EOSINOPHILS % (MANUAL)(0-6 %) 0 % July 06, 2013 9:07am 80534-2: BASOPHILS % (MANUAL)(0-1 %) 0 % July 06, 2013 9:07am NUCLEATED RBCS (MANUAL)(0-0 %) 0 % July 06, 2013 9:07am 753-4: NEUTROPHILS # (MANUAL)(2.5-7.5 10E3/UL) 7.0 10E3/UL July 06, 2013 9:33am 732-8: LYMPHOCYTES # (MANUAL)(1.0-4.0 10E3/UL) 0.2 10E3/UL July 06, 2013 9:33am 705-4: BASOPHILS # (MANUAL)(0.0-0.2 10E3/UL) 0.0 10E3/UL July 06, 2013 9:07am 9317-9: PLATELET ESTIMATE ADEQUATE July 06, 2013 9:33am 40088-6: WBC MORPHOLOGY COMMENT NORMAL July 06, 2013 9:07am 6742-1: RBC MORPHOLOGY COMMENT NORMAL July 06, 2013 9:07am 31371-3: PLATELET MORPHOLOGY COMMENT NORMAL July 06, 2013 9:07am 83365-7: D-DIMER 66784-2: D-DIMER(0.00-0.49 UG/ML) 0.42 UG/ML July 05, 2013 6:23pm 59873-0: COMPLETE METABOLIC PROFILE 17144-3: GLUCOSE(70-110 MG/DL) 111 MG/DL July 05, 2013 6:34pm 234 MG/DL July 06, 2013 9:20am BLOOD UREA NITROGEN(6-20 MG/DL) 18 MG/DL July 05, 2013 6:34pm 22 MG/DL July 06, 2013 9:20am 44816-1: CREATININE(0.50-1.20 MG/DL) 1.12 MG/DL July 05, 2013 6:34pm 0.99 MG/DL July 06, 2013 9:20am 04833-9: EST GLOMERULAR FILTRATION RATE(Greater than or equal to 60) 53 Result Comments: If the patient is of -[place] descent/extraction multiply the eGFR value by 1.212 to obtain the actual eGFR. >=60 mg/dL Normal 30-59 mg/dL Moderate Kidney Disease 15-29 mg/dL Severe Kidney Disease <15 mg/dL Kidney Failure July 05, 2013 6:34pm Greater than or equal to 60 Result Comments: If the patient is of -[place] descent/extraction multiply the eGFR value by 1.212 to obtain the actual eGFR. >=60 mg/dL Normal 30-59 mg/dL Moderate Kidney Disease 15-29 mg/dL Severe Kidney Disease <15 mg/dL Kidney Failure July 06, 2013 9:20am BUN CREATININE RATIO(10.0-20.0 RATIO) 16.0 RATIO July 05, 2013 6:34pm 22.0 RATIO July 06, 2013 9:20am 12595-7: SODIUM(135-145 MMOL/L) 140 MMOL/L July 05, 2013 6:34pm 140 MMOL/L July 06, 2013 9:20am 38053-1: POTASSIUM(3.6-5.0 MMOL/L) 3.7 MMOL/L July 05, 2013 6:34pm 4.2 MMOL/L July 06, 2013 9:20am 61853-8: CHLORIDE(101-111 MMOL/L) 105 MMOL/L July 05, 2013 6:34pm 107 MMOL/L July 06, 2013 9:20am 8-9: CO2(21-31 MMOL/L) 28.0 MMOL/L July 05, 2013 6:34pm 21.0 MMOL/L July 06, 2013 9:20am 41609-7: ANION GAP(8-18) 11 July 05, 2013 6:34pm 16 July 06, 2013 9:20am OSMO CALCULATED(270.0-290.0) 282.0 July 05, 2013 6:34pm 290.3 July 06, 2013 9:20am CALCIUM(8.5-10.5 MG/DL) 9.1 MG/DL July 05, 2013 6:34pm 9.5 MG/DL July 06, 2013 9:20am 59001-5: BILIRUBIN,TOTAL(0.1-1.2 MG/DL) 0.6 MG/DL July 05, 2013 6:34pm 0.8 MG/DL July 06, 2013 9:20am ALKALINE PHOSPHATASE(42-121 U/L) 76 U/L July 05, 2013 6:34pm 84 U/L July 06, 2013 9:20am ASPARTATE AMINO TRANSFERASE(10-42 U/L) 18 U/L July 05, 2013 6:34pm 16 U/L July 06, 2013 9:20am ALANINE AMINOTRANSFERASE(10-60 U/L) 23 U/L July 05, 2013 6:34pm 21 U/L July 06, 2013 9:20am 74819-2: TOTAL PROTEIN(6.4-8.2 G/DL) 7.0 G/DL July 05, 2013 6:34pm 7.9 G/DL July 06, 2013 9:20am ALBUMIN(3.5-5.5 G/DL) 3.8 G/DL July 05, 2013 6:34pm 3.9 G/DL July 06, 2013 9:20am 2336-6: GLOBULIN(2.4-3.6) 3.2 July 05, 2013 6:34pm 4.0 July 06, 2013 9:20am 1759-0: ALBUMIN/GLOBULIN RATIO(0.9-1.8 RATIO) 1.2 RATIO July 05, 2013 6:34pm 1.0 RATIO July 06, 2013 9:20am 73079-8: BETA NATRIURETIC PEPTIDE 69009-0: BETA NATRIURETIC PEPTIDE(0-100 PG/ML) 73 PG/ML July 05, 2013 6:49pm GLYCOHEMOGLOBIN A1C 4548-4: %A1C(4.6-6.2 %) 5.1 % July 06, 2013 9:37am GLUCOSE, CSF GLUCOSE, CSF(40-70 MG/DL) 68 MG/DL July 06, 2013 1:19am 2880-3: TOTAL PROTEIN, CSF 2880-3: TOTAL PROTEIN, CSF(15-45 MG/DL) 29 MG/DL July 06, 2013 1:19am 70570-3: CSF CELL COUNT W/ DIFF 86895-0: CSF COLOR COLORLESS July 06, 2013 2:00am COLORLESS July 06, 2013 2:11am 48844-7: CSF CLARITY CLEAR July 06, 2013 2:01am CLEAR July 06, 2013 2:11am 34994-6: CSF WBC (MANUAL)(0-5 /MM3) 1 /MM3 July 06, 2013 2:05am 1 /MM3 July 06, 2013 2:12am 33477-8: CSF RBC (MANUAL)(/MM3) 25 /MM3 July 06, 2013 2:01am 0 /MM3 July 06, 2013 2:12am CSF NEUTROPHILS(0-6 %) 0 % July 06, 2013 2:11am 0 % July 06, 2013 2:19am CSF LYMPHOCYTES(40-80 %) 84 % July 06, 2013 2:10am 74 % July 06, 2013 2:17am CSF MONOCYTES(15-45 %) 16 % July 06, 2013 2:10am 26 % July 06, 2013 2:17am CSF EOSINOPHILS(%) 0 % July 06, 2013 2:11am 0 % July 06, 2013 2:19am CSF BASOPHILS(%) 0 % Result Comments: DIFFERENTIAL COUNTS OBTAINED ON HYPOCELLULAR SPECIMENS MAY BE MISLEADING. CLINICAL CORRELATION IS NECESSARY FOR ACCURATE INTERPRETATION. July 06, 2013 2:11am 0 % Result Comments: DIFFERENTIAL COUNTS OBTAINED ON HYPOCELLULAR SPECIMENS MAY BE MISLEADING. CLINICAL CORRELATION IS NECESSARY FOR ACCURATE INTERPRETATION. July 06, 2013 2:19am CSF COMMENT TUBE#1 July 06, 2013 2:04am TUBE#4 July 06, 2013 2:14am Microbiology Results Visit/Account #[id number] (July 05, 2013 5:54pm - July 06, 2013 12:43am) Procedure Result CULTURE BODY FLUID CULTURE BODY FLUID Result Instance On July 09, 2013 8:46am Source: CEREBRAL SPINAL FLUID Special Result Comments: No growth 99128-6: MRSA SCREEN FOR INFEC CONTROL 55858-8: MRSA SCREEN FOR INFEC CONTROL Result Instance On July 07, 2013 8:10am Source: NARE Special Result Comments: No growth 50859-3: BODY FLUID GRAM STAIN 31428-0: BODY FLUID GRAM STAIN Result Instance On July 06, 2013 1:55am Source: CEREBRAL SPINAL FLUID Result Prompts: WBC/HPF 0-5 BACTERIA SEEN NO ORGANISM SEEN Allergies and Adverse Reactions Allergies and Adverse Reactions Patient Unit Number: [id number] Agent Type Reaction Severity Status Date NO KNOWN ALLERGIES Drug Allergy Unknown Mild Active Unknown Date Problem List Problem List Visit/Account #[id number] (July 05, 2013 5:54pm - July 06, 2013 12:43am) Acute Problems: Code/Condition Comments Documented Start Date Documented Resolved Date Code (s) COPD exacerbation February 17, 2013 ICD10: J44.1 Obstructive chronic bronchitis with exacerbation ICD9: 491.21 Obstructive chronic bronchitis with exacerbation SNOMED: 843393691 Obstructive chronic bronchitis with exacerbation Headache July 06, 2013 ICD10: R51 Headache ICD9: 784.0 Headache SNOMED: 31942990 Headache Headache ICD10: R51 Headache ICD9: 784.0 Headache SNOMED: 44516867 Headache COPD exacerbation ICD10: J44.1 Obstructive chronic bronchitis with exacerbation ICD9: 491.21 Obstructive chronic bronchitis with exacerbation SNOMED: 047836159 Obstructive chronic bronchitis with exacerbation Plan of Care Plan Of Care No Plan Of Care Data Vital Signs Vital Signs Visit/Account #[id number] (July 05, 2013 5:54pm - July 06, 2013 12:43am) Label First Result Last Result 2710-2: O2% 90 % July 06, 2013 2:51am 96 % July 06, 2013 9:20am 3141-9: Weight Measured 244 lbs July 05, 2013 5:52pm 110.810633 kg July 05, 2013 5:52pm 8310-5: Body Temperature 98.3 degF July 05, 2013 5:52pm 8310-5: Celsius Body Temperature 36.64873 Alyse July 06, 2013 2:51am 36.13704 Alyse July 06, 2013 9:20am 8310-5: Fahrenheit Body Temperature 98.3 [degF] July 06, 2013 9:20am 8480-6: BP Systolic 155/ mmHg July 05, 2013 5:52pm 150/90 mm[Hg] July 06, 2013 9:20am 8867-4: Heart Rate 94 /min July 05, 2013 5:52pm 95 /min July 06, 2013 9:20am 9279-1: Respiratory Rate 32 /min July 05, 2013 5:52pm 20 /min July 06, 2013 9:20am Unmapped Query Mnemonic (RESP.SAT) Saturation 97 % July 05, 2013 5:52pm 97 % July 05, 2013 5:52pm Unmapped Query Mnemonic (VS.BMI) Body Mass Index (BMI) 47 July 05, 2013 5:52pm 47 July 05, 2013 5:52pm Functional Status Functional Status No Functional Status Data Medications Home Medications Visit/Account #[id number] (July 05, 2013 5:54pm - July 06, 2013 12:43am) Medication Route Sig/Schedule Precondition/Indication Comments/Instructions Codes Aspirin(ASPIRIN) 325 MG TABLET.DR ORAL DAILY: DAILY Aspirin (ASPIRIN) RxNorm: J684774 Aspirin (ASPIRIN) NDC: 76246624943 GLUCOPHAGE(MetFORMin HCL) 500 MG TAB ORAL BIDWM: WITH BREAKFAST & SUPPER GLUCOPHAGE (MetFORMin HCL) RxNorm: A324461 GLUCOPHAGE (MetFORMin HCL) RxNorm: O282430 GLUCOPHAGE (MetFORMin HCL) NDC: 85181510487 Lisinopril(LISINOPRIL) 20 MG TABLET ORAL DAILY: DAILY Lisinopril (LISINOPRIL) RxNorm: I960564 Lisinopril (LISINOPRIL) NDC: 45872413072 VENTOLIN 0.5% NEBS (use for MED REC)(ALBUTEROL SULF) 2.5 MG/0.5 ML INHALER INHALED Q2H VENTOLIN 0.5% NEBS (use for MED REC) (ALBUTEROL SULF) RxNorm: J914693 VENTOLIN 0.5% NEBS (use for MED REC) (ALBUTEROL SULF) NDC: 80873295343 LEVAQUIN(LEVOFLOXACIN) 500 MG TAB ORAL DAILY@10 LEVAQUIN (LEVOFLOXACIN) RxNorm: K898457 LEVAQUIN (LEVOFLOXACIN) RxNorm: V287552 LEVAQUIN (LEVOFLOXACIN) NDC: 93228392177 ADVAIR DISKUS 50-500(SALMETEROL/FLUTICASONE) 14 DOSE PUFF INHALED RTBID: TWICE DAILY ADVAIR DISKUS 50-500 (SALMETEROL/FLUTICASONE) RxNorm: K6125051 ADVAIR DISKUS 50-500 (SALMETEROL/FLUTICASONE) NDC: 03451150808 DELTASONE(PredniSONE) 50 MG TAB ORAL DAILY: DAILY Rx Instructions: Finish up dose that was received in the emergency room from her previous visit. DELTASONE (PredniSONE) RxNorm: O367816 DELTASONE (PredniSONE) NDC: 20631767348 GUAIFENESIN-CODEINE LIQUID(GUAIFENESIN/CODEINE PHOSPHATE) 118 ML LIQUID ORAL Q4S: EVERY 4 HOURS GUAIFENESIN-CODEINE LIQUID (GUAIFENESIN/CODEINE PHOSPHATE) RxNorm: R405579 GUAIFENESIN-CODEINE LIQUID (GUAIFENESIN/CODEINE PHOSPHATE) NDC: 09303452577 Inpatient/Ordered Medications Visit/Account #[id number] (July 05, 2013 5:54pm - July 06, 2013 12:43am) Medication Route Sig/Schedule Precondition/Indication Comments/Instructions Codes VENTOLIN 0.5% NEB(ALBUTEROL SULF) 2.5 MG/0.5 ML INHALER Total Dose: 2.5 MG INHALED NOW: NOW Rx Order Comments: Order placed as verified: Dose Warnings differ from city recorder VENTOLIN 0.5% NEB (ALBUTEROL SULF) RxNorm: O349711 VENTOLIN 0.5% NEB (ALBUTEROL SULF) NDC: 09164254943 ATROVENT 0.02% NEB(IPRATROPIUM BROMIDE) 0.5 MG/2.5 ML SOLUTION Total Dose: 0.5 MG INHALED NOW: NOW Rx Order Comments: Order placed as verified: Dose Warnings differ from city recorder ATROVENT 0.02% NEB (IPRATROPIUM BROMIDE) RxNorm: D747541 ATROVENT 0.02% NEB (IPRATROPIUM BROMIDE) NDC: 68434225517 VENTOLIN 0.5% NEB(ALBUTEROL SULF) 2.5 MG/0.5 ML INHALER Total Dose: 2.5 MG INHALED NOW: NOW Rx Order Comments: Order placed as verified: Dose Warnings differ from city recorder VENTOLIN 0.5% NEB (ALBUTEROL SULF) RxNorm: X623887 VENTOLIN 0.5% NEB (ALBUTEROL SULF) NDC: 57217175084 ATROVENT 0.02% NEB(IPRATROPIUM BROMIDE) 0.5 MG/2.5 ML SOLUTION Total Dose: 0.5 MG INHALED NOW: NOW Rx Order Comments: Order placed as verified: Dose Warnings differ from city recorder ATROVENT 0.02% NEB (IPRATROPIUM BROMIDE) RxNorm: R128302 ATROVENT 0.02% NEB (IPRATROPIUM BROMIDE) NDC: 93793058743 Solu-MEDROL INJ(MethylPREDNISolone SOD SUCC) 125 MG/2 ML INJECTION Total Dose: 125 MG INTRAVEN NOW: NOW Rx Order Comments: Order placed as verified: Dose Warnings differ from city recorder Solu-MEDROL INJ (MethylPREDNISolone SOD SUCC) RxNorm: E190937 Solu-MEDROL INJ (MethylPREDNISolone SOD SUCC) RxNorm: R189335 Solu-MEDROL INJ (MethylPREDNISolone SOD SUCC) NDC: 98915139590 BENADRYL INJ(DiphenhydrAMINE HCL) 50 MG/ML INJECTION Total Dose: 50 MG INTRAMUSC NOW: NOW Rx Order Comments: Order placed as verified: Dose Warnings differ from city recorder BENADRYL INJ (DiphenhydrAMINE HCL) RxNorm: Y4679292 BENADRYL INJ (DiphenhydrAMINE HCL) NDC: 37201638516 PHENERGAN INJ(PROMETHazine HCL) 25 MG/ML INJECTION Total Dose: 25 MG INTRAMUSC NOW: NOW Rx Order Comments: Order placed as verified: Dose Warnings differ from city recorder PHENERGAN INJ (PROMETHazine HCL) RxNorm: O569464 PHENERGAN INJ (PROMETHazine HCL) NDC: 64564191611 VENTOLIN 0.5% NEB(ALBUTEROL SULF) 2.5 MG/0.5 ML INHALER Total Dose: 5 ML INHALED NOW: NOW Rx Order Comments: Order placed as verified: Allergies/Duplicates/Interactions differ from city recorder VENTOLIN 0.5% NEB (ALBUTEROL SULF) RxNorm: Q374597 VENTOLIN 0.5% NEB (ALBUTEROL SULF) NDC: 52161786704 ATROVENT 0.02% NEB(IPRATROPIUM BROMIDE) 0.5 MG/2.5 ML SOLUTION Total Dose: 1 ML INHALED NOW: NOW Rx Order Comments: Order placed as verified: Allergies/Duplicates/Interactions differ from city recorder ATROVENT 0.02% NEB (IPRATROPIUM BROMIDE) RxNorm: H584303 ATROVENT 0.02% NEB (IPRATROPIUM BROMIDE) NDC: 71571631363 TYLENOL(ACETAMINOPHEN) 325 MG TAB Total Dose: 0 MG ORAL Q6H PRN Reason: PRN Reason: MILD PAIN Label Comments: Do not exceed 4000 mg/24 hours. Special Dose Instructions: 325 - 650 MG TYLENOL (ACETAMINOPHEN) RxNorm: Q452599 TYLENOL (ACETAMINOPHEN) NDC: 62063115618 VENTOLIN 0.5% NEB(ALBUTEROL SULF) 2.5 MG/0.5 ML INHALER Total Dose: 2.5 MG INHALED Q6H VENTOLIN 0.5% NEB (ALBUTEROL SULF) RxNorm: R675838 VENTOLIN 0.5% NEB (ALBUTEROL SULF) NDC: 47560568896 ATROVENT 0.02% NEB(IPRATROPIUM BROMIDE) 0.5 MG/2.5 ML SOLUTION Total Dose: 0.5 MG INHALED Q6H ATROVENT 0.02% NEB (IPRATROPIUM BROMIDE) RxNorm: J027986 ATROVENT 0.02% NEB (IPRATROPIUM BROMIDE) NDC: 05868993886 Discharge Medications Visit/Account #[id number] (July 05, 2013 5:54pm - July 06, 2013 12:43am) Medication Route Sig/Schedule Precondition/Indication Comments/Instructions Codes Aspirin(ASPIRIN) 325 MG TABLET. ORAL DAILY: DAILY Aspirin (ASPIRIN) RxNorm: M095961 Aspirin (ASPIRIN) NDC: 59153720240 GLUCOPHAGE(MetFORMin HCL) 500 MG TAB ORAL BIDWM: WITH BREAKFAST & SUPPER GLUCOPHAGE (MetFORMin HCL) RxNorm: G170432 GLUCOPHAGE (MetFORMin HCL) RxNorm: O107171 GLUCOPHAGE (MetFORMin HCL) NDC: 15347977201 Lisinopril(LISINOPRIL) 20 MG TABLET ORAL DAILY: DAILY Lisinopril (LISINOPRIL) RxNorm: X741483 Lisinopril (LISINOPRIL) NDC: 39459932620 VENTOLIN 0.5% NEBS (use for MED REC)(ALBUTEROL SULF) 2.5 MG/0.5 ML INHALER INHALED Q2H VENTOLIN 0.5% NEBS (use for MED REC) (ALBUTEROL SULF) RxNorm: R518485 VENTOLIN 0.5% NEBS (use for MED REC) (ALBUTEROL SULF) NDC: 39007235031 ADVAIR DISKUS 50-500(SALMETEROL/FLUTICASONE) 14 DOSE PUFF INHALED RTBID: TWICE DAILY ADVAIR DISKUS 50-500 (SALMETEROL/FLUTICASONE) RxNorm: H8330029 ADVAIR DISKUS 50-500 (SALMETEROL/FLUTICASONE) NDC: 48948909025 GUAIFENESIN-CODEINE LIQUID(GUAIFENESIN/CODEINE PHOSPHATE) 118 ML LIQUID ORAL Q4S: EVERY 4 HOURS GUAIFENESIN-CODEINE LIQUID (GUAIFENESIN/CODEINE PHOSPHATE) RxNorm: E092987 GUAIFENESIN-CODEINE LIQUID (GUAIFENESIN/CODEINE PHOSPHATE) NDC: 50850127073 History Of Encounters Encounters Visit/Account #[id number] (July 05, 2013 5:54pm - July 06, 2013 12:43am) Account Status Physican Of Record Reason For Visit Visit Diagnosis Start Date/Time Stop Date/Time ER CLOTILDE ZAMBRANO, DO COPD EXACERBATION, HEADACHE 784.0: HEADACHE ICD9 Jul 05, 2013 5:54pm Jul 06, 2013 12:43am Florencio ILDA COFFMAN MD COPD EXACERBATION, HEADACHE 784.0: HEADACHE ICD9 Jul 05, 2013 8:00pm Jul 06, 2013 12:24pm History of Procedures Procedure List Visit/Account #[id number] (July 05, 2013 5:54pm - July 06, 2013 12:43am) Code/Procedure Date 03.31: SPINAL TAP July 06, 2013 Discharge Instructions Discharge Instructions Visit/Account #[id number] (July 05, 2013 5:54pm - July 06, 2013 12:43am) No Discharge Instructions Reports. Social History Social History Visit/Account #[id number] (July 05, 2013 5:54pm - July 06, 2013 12:43am) Smoking Status Heavy tobacco smoker July 05, 2013 5:56pm Immunizations Immunizations Patient Unit Number: [id number] Immunizations No Immunizations Administered
--- OUTSIDE RECORDS SUMMARY | 2016-06-25 15:52 | XMS REPORT | Continuity Of Care Document ---
Author Author [facility] Organization [facility] Address [address] [place] [address] Phone Care Team Providers Care Msws Name Role Phone ROBERTA ODONNELL, Jonatan AT Results Lab Results Visit/Account #[id number] (January 12, 2016 5:30pm - January 12, 2016 10:43pm ) Test Result Date/Time POCGL POCGL(70-110 MG/DL) 133 MG/DL January 12, 2016 8:06pm Allergies and Adverse Reactions Allergies and Adverse Reactions Patient Unit Number: [id number] Agent Type Reaction Severity Status SULFAMETHOXAZOLE Drug Allergy HIVES Severe Active TRIMETHOPRIM Drug Allergy HIVES Severe Active Problem List Problem List Visit/Account #[id number] (January 12, 2016 5:30pm - January 12, 2016 10:43pm ) Acute Problems: Code/Condition Comments Documented Start Date Documented Resolved Date Code (s) DVT (deep venous thrombosis) ICD10: I82.409 Deep vein thrombosis (DVT) ICD9: 453.40 Deep vein thrombosis (DVT) SNOMED: 888102103 Deep vein thrombosis (DVT) Plan of Care Plan Of Care No Plan Of Care Data. Vital Signs Vital Signs No Vital Signs Data. Functional Status Functional and Cognitive Status No Functional Status Data Medications Home Medications - Medications that the patient was taking prior to arrival at the hospital Visit/Account #[id number] (January 12, 2016 5:30pm - January 12, 2016 10:43pm ) Medication Route Sig/Schedule Precondition/Indication Comments/Instructions Codes GLUCOPHAGE(MetFORMIN HCL) 500 MG TAB Dose: 500 MG ORAL WITH BREAKFAST & SUPPER GLUCOPHAGE (MetFORMIN HCL) NDC: 24723563910 LISINOPRIL(LISINOPRIL) 20 MG TABLET Dose: 20 MG ORAL DAILY Lisinopril 20 MG Oral Tablet (RxNorm): 419247 LISINOPRIL (LISINOPRIL) NDC: 34358323901 VENTOLIN 0.5% NEBS (use for MED REC)(ALBUTEROL SULF) 2.5 MG/0.5 ML INHALER Dose: 2.5 MG INHALED 4 TIMES DAILY Albuterol 1 MG/ML Inhalant Solution (RxNorm): 141046 VENTOLIN 0.5% NEBS (use for MED REC) (ALBUTEROL SULF) NDC: 42684344629 VENTOLIN 0.5% NEBS (use for MED REC)(ALBUTEROL SULF) 2.5 MG/0.5 ML INHALER Dose: 2.5 MG INHALED Q2H SHORTNESS OF BREATH/WHEEZING Albuterol 1 MG/ML Inhalant Solution (RxNorm): 235782 VENTOLIN 0.5% NEBS (use for MED REC) (ALBUTEROL SULF) NDC: 53609397595 Aspirin Chew(ASPIRIN) 81 MG TAB Dose: 81 MG ORAL DAILY Aspirin Chew (ASPIRIN) NDC: 06525130220 SPIRIVA(TIOTROPIUM) 18 MCG CAP Dose: 18 MCG INHALED DAILY tiotropium 0.018 MG/ACTUAT Inhalant Powder [Spiriva] (RxNorm): 508327 SPIRIVA (TIOTROPIUM) NDC: [id number] DELTASONE(PredniSONE) 20 MG TAB Dose: 60 MG ORAL DIRECTED Rx Instructions: Take 60mg x 3 days then take 40mg x 3 days then take 20 mg x 3 days then take 10 mg until gone. Prednisone 20 MG Oral Tablet (RxNorm): 837395 DELTASONE (PredniSONE) NDC: 78883841742 Motrin(IBUPROFEN) 400 MG TAB Dose: 400 MG ORAL Q4H PAIN Motrin (IBUPROFEN) NDC: 36096223534 Prednisone(PredniSONE) 20 MG TAB Dose: 60 MG ORAL DAILY Prednisone 20 MG Oral Tablet (RxNorm): 266921 Prednisone (PredniSONE) NDC: 82972840312 Zithromax (Z-Pack)(AZITHROMYCIN) 250 MG TAB Dose: 1 TAB ORAL DIRECTED Rx Instructions: TAKE 2 TABLETS TODAY THEN 1 TABLET DAILY ON DAYS 2-5. Azithromycin 250 MG Oral Tablet [Zithromax] (RxNorm): 971266 Zithromax (Z-Pack) (AZITHROMYCIN) NDC: 57639731894 Inpatient/Ordered Medications - Medications administered during hospital visit Visit/Account #[id number] (January 12, 2016 5:30pm - January 12, 2016 10:43pm ) Medication Route Sig/Schedule Precondition/Indication Comments/Instructions Codes VENTOLIN 0.5% NEB(ALBUTEROL SULF) 2.5 MG/0.5 ML INHALER Dose: 0.5 ML INHALED Q6H Albuterol 1 MG/ML Inhalant Solution (RxNorm): 478010 VENTOLIN 0.5% NEB (ALBUTEROL SULF) NDC: 70966432177 ATROVENT 0.02% NEB(IPRATROPIUM BROMIDE) 0.5 MG/2.5 ML SOLUTION Dose: 2.5 ML INHALED Q6H Ipratropium [place] 0.2 MG/ML Inhalant Solution (RxNorm): 328038 ATROVENT 0.02% NEB (IPRATROPIUM BROMIDE) NDC: 35365360607 LOVENOX(ENOXAPARIN) 40 MG/0.4 ML INJECTION Dose: 0.4 ML SUBCUTANEOUSLY TWICE A DAY Label Comments: INJECT SC INTO ABDOMINAL WALL ONLY. 0.4 ML Enoxaparin sodium 100 MG/ML Prefilled Syringe [Lovenox] (RxNorm): 314331 LOVENOX (ENOXAPARIN) NDC: 86587075042 History Of Encounters Encounters Visit/Account #[id number] (January 12, 2016 5:30pm - January 12, 2016 10:43pm ) Account Status Physican Of Record Reason For Visit Visit Diagnosis Start Date/Time Stop Date/Time IN JANETT GRANADOS MD ACUTE LLE DVT I82.402: ACUTE EMBOLISM AND THOMBOS UNSP DEEP VEINS OF L LOW EXTREM ICD10 Jan 12, 2016 5:30pm Jan 12, 2016 10:43pm History of Procedures Procedure List No procedures recorded. Discharge Instructions Discharge Instructions Visit/Account #[id number] (January 12, 2016 5:30pm - January 12, 2016 10:43pm ) DISCHARGE INSTRUCTIONS Physician Documentation Social History Social History No Social History Data. Immunizations Immunizations Patient Unit Number: [id number] Immunizations No immunizations recorded.
--- OUTSIDE RECORDS SUMMARY | 2016-06-25 15:52 | XMS REPORT | Continuity Of Care Document ---
Author Author [facility] Organization [facility] Address [address] [place] [address] Phone Care Team Providers Care Physician Office Clin Asst Name Role Phone CLOTILDE ZAMBRANO DO AT [facility] TELLES PP Allergies and Adverse Reactions Allergies and Adverse Reactions Patient Unit Number: [id number] Agent Type Reaction Severity Status Date NO KNOWN ALLERGIES Drug Allergy Unknown Mild Active June 26, 2008 Problem List Problem List Visit/Account #[id number] (October 21, 2012 5:49am - October 21, 2012 6:28am) Active Problems: Code/Condition Comments Documented Start Date Documented Resolved Date 346.90 MIGRAINE UNSPECIFIED W/O INTRACT MGRN W/O STATUS MIGRAINOSUS October 21, 2012 368.13 VISUAL DISCOMFORT October 21, 2012 Vital Signs Vital Signs Visit/Account #[id number] (October 21, 2012 5:49am - October 21, 2012 6:28am) Label First Result Last Result 3141-9: Weight Measured 250 lbs October 21, 2012 5:48am 113.717468 kg October 21, 2012 5:48am 8310-5: Body Temperature 98.9 degF October 21, 2012 5:48am 8310-5: Fahrenheit Body Temperature 98.9 [degF] October 21, 2012 6:17am 8480-6: BP Systolic 154/ mmHg October 21, 2012 5:48am 91/ mm[Hg] October 21, 2012 6:17am 8867-4: Heart Rate 111 /min October 21, 2012 5:48am 98 /min October 21, 2012 6:17am 9279-1: Respiratory Rate 22 /min October 21, 2012 5:48am 20 /min October 21, 2012 6:17am Unmapped Query Mnemonic (RESP.SAT) Saturation 96 % October 21, 2012 5:48am 96 % October 21, 2012 5:48am Ordered Medications Ordered Medications Visit/Account #[id number] (October 21, 2012 5:49am - October 21, 2012 6:28am) Medication Dose Route Sig/Schedule Precondition/Indication Comments/ Instructions NDC NORFLEX INJ(ORPHENADRINE CITRATE) 60 MG/2 ML INJECTION 60 MG IM: INTRAMUSC NOW: NOW Rx Order Comments: Order placed as verified: Allergies/Duplicates/Interactions differ from entry engineer NORFLEX INJ (ORPHENADRINE CITRATE): [id number] TORADOL INJ(KETOROLAC TROMETHAMINE) 60 MG/2 ML VIAL 60 MG IM: INTRAMUSC NOW: NOW Rx Order Comments: Order placed as verified: Allergies/Duplicates/Interactions differ from entry engineer TORADOL INJ (KETOROLAC TROMETHAMINE): [id number] BENADRYL INJ(DiphenhydrAMINE HCL) 50 MG/ML INJECTION 25 MG IM: INTRAMUSC NOW: NOW Rx Order Comments: Order placed as verified: Allergies/Duplicates/Interactions differ from entry engineer Label Comments: MAY INCREASE FALL RISK BENADRYL INJ (DiphenhydrAMINE HCL): 89495568041 PHENERGAN INJ(PROMETHazine HCL) 25 MG/ML INJECTION 25 MG IM: INTRAMUSC NOW: NOW Rx Order Comments: Order placed as verified: Allergies/Duplicates/Interactions differ from entry engineer Label Comments: For IV use dilute 1 ml with 9 ml of NS and administer through port furthest away from hand or wrist over at least 1 minute (administration over 10-15 minutes and with free-flowing IV decreases patient risk of tissue damage). MAY INCREASE FALL RISK PHENERGAN INJ (PROMETHazine HCL): 71924589305 Discharge Medications Discharge Medications Visit/Account #[id number] (October 21, 2012 5:49am - October 21, 2012 6:28am) Medication Dose Route Sig/Schedule Precondition/Indication Comments/ Instructions NDC Flexeril(CYCLOBENZAPRINE HCL) 10 MG TAB 10 MG PO: ORAL TID: 3 TIMES A DAY Flexeril (CYCLOBENZAPRINE HCL): 59294653932 Fioricet(ACETAMIN/BUTALBITAL/CAFFEINE) 1 TAB TAB 1 TAB PO: ORAL Q6: EVERY 6 HOURS Fioricet (ACETAMIN/BUTALBITAL/CAFFEINE): 58502218445 History Of Encounters Encounters Visit/Account #[id number] (October 21, 2012 5:49am - October 21, 2012 6:28am) No reports exist, or have been identified for inclusion with this encounter.
--- OUTSIDE RECORDS SUMMARY | 2016-06-25 15:52 | XMS REPORT | Continuity Of Care Document ---
Author Author [facility] Organization [facility] Address [address] [place] [address] Phone Care Team Providers Care Medical Logistics Specialist Name Role Phone MORENA CASTELAN DO AT NON-[facility]UR[facility], [facility] PP Results Lab Results Visit/Account #[id number] (February 16, 2013 5:27pm - February 16, 2013 6: 53pm) Test Result Reported Date/Time COMPLETE BLOOD COUNT WITH DIFF WHITE BLOOD COUNT(4.0-11.0 10E3/UL) 12.5 10E3/UL February 16, 2013 5:54pm RED BLOOD COUNT(3.80-5.20 10E6/UL) 4.18 10E6/UL February 16, 2013 5:54pm HEMOGLOBIN(12.0-16.0 G/DL) 12.8 G/DL February 16, 2013 5:54pm HEMATOCRIT(36.0-48.0 %) 35.5 % February 16, 2013 5:54pm MEAN CORPUSCULAR VOLUME(80.0-100.0 FL) 84.9 FL February 16, 2013 5:54pm MEAN CORPUSCULAR HEMOGLOBIN(27.0-34.0 PG) 30.6 PG February 16, 2013 5:54pm MEAN CORPUSCULAR HGB CONC(33.0-37.0 G/DL) 36.1 G/DL February 16, 2013 5:54pm RED CELL DISTRIBUTION WIDTH(11.0-15.0 %) 12.6 % February 16, 2013 5:54pm 777-3: PLATELET COUNT(130-400 10E3/UL) 261 10E3/UL February 16, 2013 5:54pm MEAN PLATELET VOLUME(7.4-11.0 FL) 9.8 FL February 16, 2013 5:54pm NEUTROPHILS % (AUTO)(40-70 %) 85 % February 16, 2013 5:54pm LYMPHOCYTES % (AUTO)(15-45 %) 10 % February 16, 2013 5:54pm MONOCYTES % (AUTO)(2-10 %) 5 % February 16, 2013 5:54pm EOSINOPHILS % (AUTO)(0-6 %) 0 % February 16, 2013 5:54pm BASOPHILS % (AUTO)(0-1 %) 0 % February 16, 2013 5:54pm IMMATURE GRANS % (AUTO)(0-0 %) 1 % February 16, 2013 5:54pm NUCLEATED RBCS (AUTO)(0-0 %) 0 % February 16, 2013 5:54pm NEUTROPHILS # (AUTO)(2.5-7.5 10E3/UL) 10.7 10E3/UL February 16, 2013 5:54pm LYMPHOCYTES # (AUTO)(1.0-4.0 10E3/UL) 1.2 10E3/UL February 16, 2013 5:54pm MONOCYTES # (AUTO)(0.2-0.8 10E3/UL) 0.6 10E3/UL February 16, 2013 5:54pm EOSINOPHILS # (AUTO)(0.0-0.4 10E3/UL) 0.0 10E3/UL February 16, 2013 5:54pm BASOPHILS # (AUTO)(0.0-0.2 10E3/UL) 0.0 10E3/UL February 16, 2013 5:54pm IMMATURE GRANS # (AUTO)(0.0-0.0 10E3/UL) 0.1 10E3/UL February 16, 2013 5:54pm DIFF TYPE AUTOMATED February 16, 2013 5:54pm COMPLETE METABOLIC PROFILE GLUCOSE(70-110 MG/DL) 147 MG/DL February 16, 2013 6:09pm BLOOD UREA NITROGEN(6-20 MG/DL) 15 MG/DL February 16, 2013 6:09pm CREATININE(0.50-1.20 MG/DL) 1.37 MG/DL February 16, 2013 6:09pm EST GLOMERULAR FILTRATION RATE(Greater than or equal to 60) 42 Result Comments: If the patient is of -[place] descent/extraction multiply the eGFR value by 1.212 to obtain the actual eGFR. >=60 mg/dL Normal 30-59 mg/dL Moderate Kidney Disease 15-29 mg/dL Severe Kidney Disease <15 mg/dL Kidney Failure February 16, 2013 6:09pm BUN CREATININE RATIO(10.0-20.0 RATIO) 11.0 RATIO February 16, 2013 6:09pm SODIUM(135-145 MMOL/L) 138 MMOL/L February 16, 2013 6:09pm POTASSIUM(3.6-5.0 MMOL/L) 4.1 MMOL/L February 16, 2013 6:09pm CHLORIDE(101-111 MMOL/L) 103 MMOL/L February 16, 2013 6:09pm CO2(21-31 MMOL/L) 25.0 MMOL/L February 16, 2013 6:09pm ANION GAP(8-18) 14 February 16, 2013 6:09pm OSMO CALCULATED(270.0-290.0) 279.2 February 16, 2013 6:09pm CALCIUM(8.5-10.5 MG/DL) 8.7 MG/DL February 16, 2013 6:09pm BILIRUBIN,TOTAL(0.1-1.2 MG/DL) 0.3 MG/DL February 16, 2013 6:09pm ALKALINE PHOSPHATASE(42-121 U/L) 61 U/L February 16, 2013 6:09pm ASPARTATE AMINO TRANSFERASE(10-42 U/L) 21 U/L February 16, 2013 6:09pm ALANINE AMINOTRANSFERASE(10-60 U/L) 15 U/L February 16, 2013 6:09pm TOTAL PROTEIN(6.4-8.2 G/DL) 7.0 G/DL February 16, 2013 6:09pm ALBUMIN(3.5-5.5 G/DL) 3.9 G/DL February 16, 2013 6:09pm GLOBULIN(2.4-3.6) 3.0 February 16, 2013 6:09pm ALBUMIN/GLOBULIN RATIO(0.9-1.8 RATIO) 1.3 RATIO February 16, 2013 6:09pm Allergies and Adverse Reactions Allergies and Adverse Reactions Patient Unit Number: [id number] Agent Type Reaction Severity Status Date NO KNOWN ALLERGIES Drug Allergy Unknown Mild Active June 26, 2008 Vital Signs Vital Signs Visit/Account #[id number] (February 16, 2013 5:27pm - February 16, 2013 6: 53pm) Label First Result Last Result 3141-9: Weight Measured 250 lbs February 16, 2013 5:26pm 113.297432 kg February 16, 2013 5:26pm 8310-5: Body Temperature 97.9 degF February 16, 2013 5:26pm 8310-5: Fahrenheit Body Temperature 98.1 [degF] February 16, 2013 6:50pm 8480-6: BP Systolic 133/ mmHg February 16, 2013 5:26pm 94/ mm[Hg] February 16, 2013 6:50pm 8867-4: Heart Rate 90 /min February 16, 2013 5:26pm 88 /min February 16, 2013 6:50pm 9279-1: Respiratory Rate 28 /min February 16, 2013 5:26pm 16 /min February 16, 2013 6:50pm Unmapped Query Mnemonic (RESP.SAT) Saturation 98 % February 16, 2013 5:26pm 98 % February 16, 2013 5:26pm Ordered Medications Ordered Medications Visit/Account #[id number] (February 16, 2013 5:27pm - February 16, 2013 6: 53pm) Medication Dose Route Sig/Schedule Precondition/Indication Comments/ Instructions NDC VENTOLIN 0.5% NEB(ALBUTEROL) 2.5 MG/0.5 ML INHALER 10 MG INH: INHALED NOW: NOW Rx Order Comments: Order placed as verified: Allergies/Duplicates/Interactions differ from cook short order Dose Warnings differ from cook short order VENTOLIN 0.5% NEB (ALBUTEROL): [id number] ATROVENT 0.02% NEB(IPRATROPIUM BROMIDE) 0.5 MG/2.5 ML SOLUTION 1 MG INH: INHALED NOW: NOW Rx Order Comments: Order placed as verified: Allergies/Duplicates/Interactions differ from cook short order Dose Warnings differ from cook short order ATROVENT 0.02% NEB (IPRATROPIUM BROMIDE): [id number] IV Medication Carriers: MAGNESIUM SULFATE 2 GM/50 ML INJECTION 50 GM IV: INTRAVEN NOW (Rate: 150 MLS/HR Duration: 20 MIN) Rx Order Comments: Order placed as verified: Allergies/Duplicates/Interactions differ from cook short order Dose Warnings differ from cook short order Carriers: (MAGNESIUM SULFATE): [id number] Solu-MEDROL INJ(MethylPREDNISolone SOD SUCC) 125 MG/2 ML INJECTION 125 MG IV: INTRAVEN NOW: NOW Rx Order Comments: Order placed as verified: Allergies/Duplicates/Interactions differ from cook short order Dose Warnings differ from cook short order Solu-MEDROL INJ (MethylPREDNISolone SOD SUCC): [id number] MORPHINE SULFATE 4 MG/ML INJECTION 4 MG .ROUTE: Route .STK-MED (MORPHINE SULFATE): [id number] Discharge Medications Discharge Medications Visit/Account #[id number] (February 16, 2013 5:27pm - February 16, 2013 6: 53pm) Medication Dose Route Sig/Schedule Precondition/Indication Comments/ Instructions NDC PHENERGAN W/CODEINE(PROMETHAZINE HCL/CODEINE) 5 ML SYRUP 5 ML PO: ORAL Q6S: EVERY 6 HOURS PHENERGAN W/CODEINE (PROMETHAZINE HCL/CODEINE): [id number] Deltasone(PredniSONE) 20 MG TAB 60 MG PO: ORAL DAILY: DAILY Rx Instructions: Correct dosinmg po x 3d 40mg po x 3d 20mg po x 3d 10mg po x 3d then d/c Deltasone (PredniSONE): [id number] History Of Encounters Encounters Visit/Account #[id number] (February 16, 2013 5:27pm - February 16, 2013 6: 53pm) No reports exist, or have been identified for inclusion with this encounter.
--- OUTSIDE RECORDS SUMMARY | 2016-06-25 15:52 | XMS REPORT | Continuity Of Care Document ---
Author Author [facility] Organization [facility] Address [address] [place] [address] Phone Care Team Providers Care [employer] Name Role Phone MARCELA ZULETA MD CP LYNN ODONNELL, R AT [phone] MICHELLE ODONNELL, C AD Results Lab Results Visit/Account #[id number] (November 23, 2013 2:01pm - November 24, 2013 12:38pm) Test Result Date/Time POCGL POCGL(70-105 MG/DL) 307 MG/DL November 23, 2013 11:55pm 182 MG/DL November 24, 2013 7:05am 60795-2: COMPLETE BLOOD COUNT WITH DIFF WHITE BLOOD COUNT(4.0-11.0 10E3/UL) 3.2 10E3/UL November 23, 2013 2:29pm RED BLOOD COUNT(4.00-5.20 10E6/UL) 4.70 10E6/UL November 23, 2013 2:29pm HEMOGLOBIN(12.0-16.0 G/DL) 14.6 G/DL November 23, 2013 2:29pm HEMATOCRIT(36.0-46.0 %) 40.2 % November 23, 2013 2:29pm 52215-8: MEAN CORPUSCULAR VOLUME(82.0-100.0 FL) 85.5 FL November 23, 2013 2:29pm 19325-2: MEAN CORPUSCULAR HEMOGLOBIN(26.0-34.0 PG) 31.1 PG November [...] %) 1 % November 23, 2013 2:29pm 01147-4: IMMATURE GRANS % (AUTO)(0-0 %) 0 % November 23, 2013 2:29pm NUCLEATED RBCS (AUTO)(0-0 %) 0 % November 23, 2013 2:29pm 751-8: NEUTROPHILS # (AUTO)(2.5-7.5 10E3/UL) 1.5 10E3/UL November 23, 2013 2:29pm 90292-1: LYMPHOCYTES # (AUTO)(1.0-4.0 10E3/UL) 1.2 10E3/UL November 23, 2013 2:29pm 742-7: MONOCYTES # (AUTO)(0.2-0.8 10E3/UL) 0.2 10E3/UL November 23, 2013 2:29pm 711-2: EOSINOPHILS # (AUTO)(0.0-0.4 10E3/UL) 0.3 10E3/UL November 23, 2013 2:29pm 704-7: BASOPHILS # (AUTO)(0.0-0.2 10E3/UL) 0.0 10E3/UL November 23, 2013 2:29pm IMMATURE GRANS # (AUTO)(0.0-0.0 10E3/UL) 0.0 10E3/UL November 23, 2013 2:29pm DIFF TYPE AUTOMATED November 23, 2013 2:29pm 08636-6: COMPLETE BLOOD COUNT WHITE BLOOD COUNT(4.0-11.0 10E3/UL) 4.5 10E3/UL November 24, 2013 2:16am RED BLOOD COUNT(4.00-5.20 10E6/UL) 4.47 10E6/UL November 24, 2013 2:16am HEMOGLOBIN(12.0-16.0 G/DL) 14.0 G/DL November 24, 2013 2:16am HEMATOCRIT(36.0-46.0 %) 38.6 % November 24, 2013 2:16am 14840-3: MEAN CORPUSCULAR VOLUME(82.0-100.0 FL) 86.4 FL November 24, 2013 2:16am 88948-0: MEAN CORPUSCULAR HEMOGLOBIN(26.0-34.0 PG) 31.3 PG November 24, 2013 2:16am MEAN CORPUSCULAR HGB CONC(31.5-36.5 G/DL) 36.3 G/DL November 24, 2013 2:16am RED CELL DISTRIBUTION WIDTH(11.5-14.5 %) 12.4 % November 24, 2013 2:16am 777-3: PLATELET COUNT(150-450 10E3/UL) 221 10E3/UL November 24, 2013 2:16am MEAN PLATELET VOLUME(8.2-12.4 FL) 9.6 FL November 24, 2013 2:16am NUCLEATED RBCS (AUTO)(0-0 %) 0 % November 24, 2013 2:16am 76660-5: PROTHROMBIN TIME WITH INR PROTHROMBIN TIME(12.1-14.0 SEC) 13.5 SEC November 23, 2013 2:36pm 30871-4: INR 1.05 Result Comments: INR reference interval applies to patients on anticoagulant therapy. Suggested INR therapeutic range for oral anticoagulant therapy: (Stabilized anticoagulated patients) Routine Therapy: 2.0 to 3.0 Recurrent Myocardial Infarction: 2.5 to 3.5 Mechanical Prosthetic Valves: 2.5 to 3.5 November 23, 2013 2:36pm BASIC METABOLIC PANEL 79107-3: GLUCOSE(70-110 MG/DL) 124 MG/DL November 23, 2013 2:46pm 205 MG/DL November 24, 2013 2:28am BLOOD UREA NITROGEN(6-20 MG/DL) 11 MG/DL November 23, 2013 2:46pm 15 MG/DL November 24, 2013 2:28am 14181-7: CREATININE(0.50-1.20 MG/DL) 1.26 MG/DL November 23, 2013 2:46pm 1.11 MG/DL November 24, 2013 2:28am 57339-8: EST GLOMERULAR FILTRATION RATE(Greater than or equal to 60) 46 Result Comments: If the patient is of -[place] descent/extraction multiply the eGFR value by 1.212 to obtain the actual eGFR. >=60 mg/dL Normal 30-59 mg/dL Moderate Kidney Disease 15-29 mg/dL Severe Kidney Disease <15 mg/dL Kidney Failure November 23, 2013 2:46pm 53 Result Comments: If the patient is of -[place] descent/extraction multiply the eGFR value by 1.212 to obtain the actual eGFR. >=60 mg/dL Normal 30-59 mg/dL Moderate Kidney Disease 15-29 mg/dL Severe Kidney Disease <15 mg/dL Kidney Failure November 24, 2013 2:28am BUN CREATININE RATIO(10.0-20.0 RATIO) 9.0 RATIO November 23, 2013 2:46pm 14.0 RATIO November 24, 2013 2:28am 98783-9: SODIUM(135-145 MMOL/L) 137 MMOL/L November 23, 2013 2:46pm 134 MMOL/L November 24, 2013 2:28am 91442-4: POTASSIUM(3.6-5.0 MMOL/L) 3.8 MMOL/L November 23, 2013 2:47pm 4.1 MMOL/L November 24, 2013 2:28am 12416-7: CHLORIDE(101-111 MMOL/L) 106 MMOL/L November 23, 2013 2:47pm 105 MMOL/L November 24, 2013 2:28am 8-9: CO2(21-31 MMOL/L) 26.0 MMOL/L November 23, 2013 2:47pm 22.0 MMOL/L November 24, 2013 2:28am 91100-6: ANION GAP(8-18) 9 November 23, 2013 2:47pm [...] 8:39pm 0.9 NG/ML November 24, 2013 2:40am 45581-5: CARDIAC TROPONIN I 62507-5: CARDIAC TROPONIN I(0.01-0.04 NG/ML) 0.01 NG/ML Result [...] NEW REFERENCE RANGE November 24, 2013 2:40am 56019-4: BETA NATRIURETIC PEPTIDE 13940-5: BETA NATRIURETIC PEPTIDE(0-100 PG/ML) 42 PG/ML November 23, 2013 3:17pm Microbiology Results Visit/Account #[id number] (November 23, 2013 2:01pm - November 24, 2013 12:38pm) Procedure Result 6460-0: SPUTUM CULTURE 6460-0: SPUTUM CULTURE Result Instance On November 25, 2013 8:33am Source: SPUTUM Organism: [id number] (SNOMED_CT) ROUTINE RESPIRATORY MARCELO 22909-5: MRSA SCREEN FOR INFEC CONTROL 54621-8: MRSA SCREEN FOR INFEC CONTROL Result Instance [...] Allergies and Adverse Reactions Patient Unit Number: [id number] Agent Type Reaction Severity Status Date NO KNOWN ALLERGIES Drug Allergy Unknown Mild Active Unknown Date Problem List Problem List Visit/Account #[id number] (November 23, 2013 2:01pm - November 24, 2013 12:38pm) Acute Problems: Code/Condition Comments Documented Start Date Documented Resolved Date Code (s) COPD exacerbation ICD10: J44.1 Obstructive chronic bronchitis with exacerbation ICD9: 491.21 Obstructive chronic bronchitis with exacerbation SNOMED: 041821077 Obstructive chronic bronchitis with exacerbation COPD exacerbation ICD10: J44.1 Obstructive chronic bronchitis with exacerbation ICD9: 491.21 Obstructive chronic bronchitis with exacerbation SNOMED: 012540952 Obstructive chronic bronchitis with exacerbation Chest pain ICD10: R07.9 Chest pain ICD9: 786.50 Chest pain SNOMED: 31590436 Chest pain Plan of Care Plan Of Care Visit/Account #[id number] (November 23, 2013 2:01pm - November 24, 2013 12:38pm) Instructions/Comments: Chronic Obstructive Pulmonary Disease Vital Signs Vital Signs Visit/Account #[id number] (November 23, 2013 2:01pm - November 24, 2013 12:38pm) Label First Result Last Result 2710-2: O2% 95 % November 23, 2013 5:57pm 96 % November 24, 2013 9:29am 3141-9: Weight Measured 236 lbs November 23, 2013 1:58pm 107.539350 kg November 23, 2013 1:58pm 8310-5: Body Temperature 98.3 degF November 23, 2013 1:58pm 8310-5: Celsius Body Temperature 36.77789 Alyse November 23, 2013 5:57pm 35.69253 Alyse November 24, 2013 9:29am 8310-5: [facility] Body Temperature 96.4 [degF] November 24, 2013 [...] Functional Status Data Medications Home Medications Visit/Account #[id number] (November 23, 2013 2:01pm - November 24, 2013 12:38pm) Medication Route Sig/Schedule Precondition/Indication Comments/Instructions Codes GLUCOPHAGE(MetFORMin HCL) 500 MG TAB ORAL BIDWM: WITH BREAKFAST & SUPPER GLUCOPHAGE (MetFORMin HCL) RxNorm: Q601019 GLUCOPHAGE (MetFORMin HCL) RxNorm: U470616 GLUCOPHAGE (MetFORMin HCL) NDC: 91213043569 Lisinopril(LISINOPRIL) 20 MG TABLET ORAL DAILY: DAILY Lisinopril (LISINOPRIL) RxNorm: Z796130 Lisinopril (LISINOPRIL) NDC: 40004493363 VENTOLIN 0.5% NEBS (use for MED REC)(ALBUTEROL SULF) 2.5 MG/0.5 ML INHALER INHALED 4XD: 4 TIMES DAILY VENTOLIN 0.5% NEBS (use for MED REC) (ALBUTEROL SULF) RxNorm: N398403 VENTOLIN 0.5% NEBS (use for MED REC) (ALBUTEROL SULF) NDC: 14284451696 LEVAQUIN(LEVOFLOXACIN) 500 MG TAB ORAL DAILY@10 LEVAQUIN (LEVOFLOXACIN) RxNorm: R907847 LEVAQUIN (LEVOFLOXACIN) RxNorm: P856324 LEVAQUIN (LEVOFLOXACIN) NDC: 79817251473 ATROVENT 0.02% NEB(IPRATROPIUM BROMIDE) 0.5 MG/2.5 ML SOLUTION INHALED Q6H ATROVENT 0.02% NEB (IPRATROPIUM BROMIDE) RxNorm: J247945 ATROVENT 0.02% NEB (IPRATROPIUM BROMIDE) NDC: 77783474368 VENTOLIN 0.5% NEBS (use for MED REC)(ALBUTEROL SULF) 2.5 MG/0.5 ML INHALER INHALED Q6H VENTOLIN 0.5% NEBS (use for MED REC) (ALBUTEROL SULF) RxNorm: V101814 VENTOLIN 0.5% NEBS (use for MED REC) (ALBUTEROL SULF) NDC: 45238390833 VENTOLIN 0.5% NEBS (use for MED REC)(ALBUTEROL SULF) 2.5 MG/0.5 ML INHALER INHALED Q2H VENTOLIN 0.5% NEBS (use for MED REC) (ALBUTEROL SULF) RxNorm: Y959471 VENTOLIN 0.5% NEBS (use for MED REC) (ALBUTEROL SULF) NDC: 04439266276 Aspirin Chew(ASPIRIN) 81 MG TAB ORAL DAILY: DAILY Aspirin Chew (ASPIRIN) NDC: 17146103654 DELTASONE(PredniSONE) 20 MG TAB ORAL DAILYB: DAILY AT [facility] Rx Instructions: Take 60 mg daily for 3 days then, take 40 mg daily for 3 days then, take 20 mg daily for 3 days then, take 10 mg daily until gone. DELTASONE (PredniSONE) RxNorm: Q304953 DELTASONE (PredniSONE) NDC: 90866469883 TUSSIN COUGH & COLD CF LIQUID(GUAIFENESIN/D-METHORPHAN HB/PE) 118 ML LIQUID ORAL TID: 3 TIMES A DAY TUSSIN COUGH & COLD CF LIQUID (GUAIFENESIN/D-METHORPHAN HB/PE) RxNorm: G2916486 TUSSIN COUGH & COLD CF LIQUID (GUAIFENESIN/D-METHORPHAN HB/PE) NDC: 03659461746 Inpatient/Ordered Medications Visit/Account #[id number] (November 23, 2013 2:01pm - November 24, 2013 12:38pm) Medication Route Sig/Schedule Precondition/Indication Comments/Instructions Codes VENTOLIN 0.5% NEB(ALBUTEROL SULF) 2.5 MG/0.5 ML INHALER Total Dose: 2.5 MG INHALED NOW: NOW Rx Order Comments: Order placed as verified: Dose Warnings differ from stock order lister Dose Warnings differ from stock order lister VENTOLIN 0.5% NEB (ALBUTEROL SULF) RxNorm: B857964 VENTOLIN 0.5% NEB (ALBUTEROL SULF) NDC: 07884072519 VENTOLIN 0.5% NEB(ALBUTEROL SULF) 2.5 MG/0.5 ML INHALER Total Dose: 5 ML INHALED NOW: NOW Rx Order Comments: Order placed as verified: Allergies/Duplicates/Interactions differ from stock order lister Dose Warnings differ from stock order lister VENTOLIN 0.5% NEB (ALBUTEROL SULF) RxNorm: W470479 VENTOLIN 0.5% NEB (ALBUTEROL SULF) NDC: 66724619177 Solu-MEDROL INJ(MethylPREDNISolone SOD SUCC) 125 MG/2 ML INJECTION Total Dose: 125 MG INTRAVEN NOW: NOW Rx Order Comments: Order placed as verified: Allergies/Duplicates/Interactions differ from stock order lister Dose Warnings differ from stock order lister Solu-MEDROL INJ (MethylPREDNISolone SOD SUCC) RxNorm: F282711 Solu-MEDROL INJ (MethylPREDNISolone SOD SUCC) RxNorm: G490434 Solu-MEDROL INJ (MethylPREDNISolone SOD SUCC) NDC: 21296912479 ASPIRIN 324 MG TAB Total Dose: 324 MG ORAL NOW: NOW Rx Order Comments: Order placed as verified: Allergies/Duplicates/Interactions differ from stock order lister Dose Warnings differ from stock order lister Special Dose Instructions: CHEW (ASPIRIN) RxNorm: J538524 (ASPIRIN) NDC: 13356942525 VENTOLIN 0.5% NEB(ALBUTEROL SULF) 2.5 MG/0.5 ML INHALER Total Dose: 7.5 ML INHALED NOW: NOW Rx Order Comments: Order placed as verified: Allergies/Duplicates/Interactions differ from stock order lister Dose Warnings differ from stock order lister VENTOLIN 0.5% NEB (ALBUTEROL SULF) RxNorm: W497591 VENTOLIN 0.5% NEB (ALBUTEROL SULF) NDC: 06978062986 LEVAQUIN(LEVOFLOXACIN) 500 MG TAB Total Dose: 500 MG ORAL DAILY@10 Label Comments: Take 2 hrs before or after antacids, sucralfate, metal cations(iron), or multi-vitamins LEVAQUIN (LEVOFLOXACIN) RxNorm: L256907 LEVAQUIN (LEVOFLOXACIN) RxNorm: B415020 LEVAQUIN (LEVOFLOXACIN) NDC: 11776493133 VENTOLIN 0.5% NEB(ALBUTEROL SULF) 2.5 MG/0.5 ML INHALER Total Dose: 2.5 MG INHALED RT4XD: 4 TIMES DAILY VENTOLIN 0.5% NEB (ALBUTEROL SULF) RxNorm: J637364 VENTOLIN 0.5% NEB (ALBUTEROL SULF) NDC: 54843314810 SPIRIVA(TIOTROPIUM) 18 MCG/CAP CAP Total Dose: 18 MCG INHALED RTDAILY: DAILY Label Comments: inhale contents of capsule with handihaler SPIRIVA (TIOTROPIUM) RxNorm: E149651 SPIRIVA (TIOTROPIUM) RxNorm: K432037 SPIRIVA (TIOTROPIUM) NDC: 24480279696 DELTASONE(PredniSONE) 20 MG TAB Total Dose: 60 MG ORAL DAILYB: DAILY AT [facility] Label Comments: take with food or milk DELTASONE (PredniSONE) RxNorm: H510143 DELTASONE (PredniSONE) NDC: 33958764502 LEVAQUIN(LEVOFLOXACIN) 500 MG TAB Total Dose: 500 MG ORAL NOW: NOW Label Comments: Take 2 hrs before or after antacids, sucralfate, metal cations(iron), or multi-vitamins LEVAQUIN (LEVOFLOXACIN) RxNorm: Z321627 LEVAQUIN (LEVOFLOXACIN) RxNorm: Y018545 LEVAQUIN (LEVOFLOXACIN) NDC: 16845678671 LOVENOX(ENOXAPARIN) 40 MG/0.4 ML INJECTION Total Dose: 40 MG SUBCUTANEOUSLY DAILY@07 Label Comments: INJECT SC INTO ABDOMINAL WALL ONLY. LOVENOX (ENOXAPARIN) RxNorm: L458756 LOVENOX (ENOXAPARIN) RxNorm: P911431 LOVENOX (ENOXAPARIN) NDC: 77465184907 Discharge Medications Visit/Account #[id number] (November 23, 2013 2:01pm - November 24, 2013 12:38pm) Medication Route Sig/Schedule Precondition/Indication Comments/Instructions Codes GLUCOPHAGE(MetFORMin HCL) 500 MG TAB ORAL BIDWM: WITH BREAKFAST & SUPPER GLUCOPHAGE (MetFORMin HCL) RxNorm: U024253 GLUCOPHAGE (MetFORMin HCL) RxNorm: L849620 GLUCOPHAGE (MetFORMin HCL) NDC: 05051879623 Lisinopril(LISINOPRIL) 20 MG TABLET ORAL DAILY: DAILY Lisinopril (LISINOPRIL) RxNorm: T408347 Lisinopril (LISINOPRIL) NDC: 34956850651 VENTOLIN 0.5% NEBS (use for MED REC)(ALBUTEROL SULF) 2.5 MG/0.5 ML INHALER INHALED 4XD: 4 TIMES DAILY VENTOLIN 0.5% NEBS (use for MED REC) (ALBUTEROL SULF) RxNorm: R959856 VENTOLIN 0.5% NEBS (use for MED REC) (ALBUTEROL SULF) NDC: 25686305408 VENTOLIN 0.5% NEBS (use for MED REC)(ALBUTEROL SULF) 2.5 MG/0.5 ML INHALER INHALED Q2H VENTOLIN 0.5% NEBS (use for MED REC) (ALBUTEROL SULF) RxNorm: V295026 VENTOLIN 0.5% NEBS (use for MED REC) (ALBUTEROL SULF) NDC: 27149248364 Aspirin Chew(ASPIRIN) 81 MG TAB ORAL DAILY: DAILY Aspirin Chew (ASPIRIN) NDC: 01908554564 SPIRIVA(TIOTROPIUM) 18 MCG CAP INHALED RTDAILY: DAILY SPIRIVA (TIOTROPIUM) RxNorm: Y763498 SPIRIVA (TIOTROPIUM) RxNorm: B796571 SPIRIVA (TIOTROPIUM) NDC: 81134816523 DELTASONE(PredniSONE) 20 MG TAB ORAL DIRECTED: DIRECTED Rx Instructions: Take 60mg x 3 days then take 40mg x 3 days then take 20 mg x 3 days then take 10 mg until gone. DELTASONE (PredniSONE) RxNorm: O737306 DELTASONE (PredniSONE) NDC: 81335656131 Motrin(IBUPROFEN) 400 MG TAB ORAL Q4H Motrin (IBUPROFEN) NDC: 90280731217 History Of Encounters Encounters Visit/Account #[id number] (November 23, 2013 2:01pm - November 24, [...] No Procedures Discharge Instructions Discharge Instructions Visit/Account #[id number] (November 23, 2013 2:01pm - November 24, 2013 12:38pm) Department: MEDICAL RECORDS [ Report: GEN DC SUMMARY ] Dictated By: BACILIO BARBOZA MD Signed By: BACILIO BARBOZA MD [address] [address] Name: MARY DU UNIT/MR#: [id number] : 1970 Age: 43 Sex: F Report#: 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 Hospital Course: Admitted 11/23 for chest pain [...] varicosities, peripheral pulses intact Discharge Medications: per [facility] Discharge Routine Discharge Diet: ada 2000 Discharge [...] ML PO TID Discontinued Reason: Stopped Ipratropium [place] 0.02% Neb (Atrovent 0.02% Neb) 0.5 MG [...] 11/27/13 1219 Social History Social History Visit/Account #[id number] (November 23, 2013 2:01pm - November 24, 2013 12:38pm) Smoking Status Current every day smoker November 23, 2013 2:05pm Immunizations Immunizations Patient Unit Number: [id number] Immunizations No Immunizations Administered
--- OUTSIDE RECORDS SUMMARY | 2016-06-25 15:52 | XMS REPORT | Continuity of Care Document ---
Author Author [facility] Organization [facility] Address Unknown Phone Unavailable Support Name Relationship Address Phone OTHER Caregiver Unknown [phone] PEDRO GREEN MD Caregiver [address] [place] [address] [place] [phone] JANI DU Next Of Kin ALESSANDRA JOVEL [place] [phone] Insurance Providers Payer Name Policy Number Subscriber Name Relationship Self Pay Jennifer Du 16 Self Problems Medical Problems Problem Onset Date Status COPD exacerbation Unknown Active Medications Medication Dose Route Sig Days/Qty Instructions Order Date Discontinued Date Status Albuterol Sulfate 2-4 Puff IH EVERY 4 HOURS For SHORTNESS OF AIR/WHEEZING 1 Qty 06/03/14 Active Prednisone 10 Mg PO DIRECTED 24 Qty 5 Tablets by mouth daily for 2 days THEN, 06/03/14 Active Metformin HCl 500 Mg PO TWICE DAILY WITH MEALS 30 Qty 06/03/14 Active Fluticasone/Salmeterol 1 Puff ORAL INH RESP.TX TWICE A DAY 1 Qty Active Lisinopril 40 Mg PO DAILY 15 Qty 06/03/14 Active Hydrochlorothiazide 1 Tab PO GIVE WITH BREAKFAST 15 Qty 06/03/14 Active Social History Social History Problem Response Recorded Date/Time Hx Alcohol Use No 06/03/2014 8:50am Query Response Start Date Stop Date Smoking Status Current every day smoker Hospital Discharge Instructions No hospital discharge instructions. Plan of Care No plan of care. Functional Status Query Response Date Recorded Physical Hygiene Self June 03, 2014 8:50am Disabilities None June 03, 2014 8:50am Devices Used None June 03, 2014 8:50am Dressing Self June 03, 2014 8:50am Ambulation Self June 03, 2014 8:50am Diet Self June 03, 2014 8:50am Mental Status Alert Oriented June 03, 2014 1:37pm Disabilities None June 03, 2014 8:50am Devices Used None June 03, 2014 8:50am Physical Hygiene Self June 03, 2014 8:50am Dressing Self June 03, 2014 8:50am Ambulation Self June 03, 2014 8:50am Diet Self June 03, 2014 8:50am Allergies, Adverse Reactions, Alerts Allergen Type Severity Reaction Status Last Updated Unable to Assess Active 06/03/14 Immunizations No immunization records. Vital Signs Acute Vital Signs Vital Response Date/Time Temperature (Fahrenheit) 97.1 deg F (96.8 - 99.1) Temperature (Calculated Celsius) 36.19306 degrees C (36.0 - 37.3) Pulse Rate (adult) 82 bpm (60 - 100) Respiratory Rate 16 breaths/min (10 - 20) O2 Sat by Pulse Oximetry 97 % (90 - 100) Blood Pressure 143/74 mm Hg Height 5 ft 0 in Weight 263 lb Body Mass Index 51.0 kg/m^2 Results Test Source Date Result Interp. Ref. Range Comments Thyroid Stimulating Hormone (TSH) June 03, 2014 10:06am 0.92 MIU/L N 0.47-4.68 TE-Oyr-I-Type Natriuretic Peptide June 03, 2014 10:06am 69 PG/ML N 0- 175 Rule in cut points: <50 years old=450; 50-75 years old=900; >75 years old=1800; When utilizing ProBNP rule-in cut points, adjustment for impaired renal function is typically not required. Magnesium Level June 03, 2014 10:06am 1.6 MG/DL N 1.6-2.3 Troponin I June 03, 2014 10:06am < 0.012 ng/ml 0-0.12 Procalcitonin June 03, 2014 10:06am < 0.05 NG/ML - PCT </=0.5 ng/mL - sepsis not likely;PCT >0.5 and </=2 ng/mL - sepsis possible; PCT >2 ng/mL - sepsis likely; PCT >/=10 ng/mL - systemic inflammatory response - sepsis or septic shock highly indicated. Venous Blood Lactate June 03, 2014 10:06am 1.2 MMOL/L N 0.6-2.2 Alanine Aminotransferase (ALT/SGPT) June 03, 2014 10:06am 24 U/L N 9- 52 Aspartate Amino Transf (AST/SGOT) June 03, 2014 10:06am 22 U/L N 14-36 Albumin/Globulin Ratio June 03, 2014 10:06am 1.2 RATIO N 1.1-2.2 Globulin June 03, 2014 10:06am 3.3 G/DL N 2.4-3.6 Albumin June 03, 2014 10:06am 4.0 G/DL N 3.5-5.0 Total Protein June 03, 2014 10:06am 7.3 G/DL N 6.3-8.2 Alkaline Phosphatase June 03, 2014 10:06am 69 U/L N 38-126 Total Bilirubin June 03, 2014 10:06am 0.50 MG/DL N 0.20-1.30 Calcium Level June 03, 2014 10:06am 9.2 MG/DL N 8.4-10.2 Calculated Osmolality June 03, 2014 10:06am 274 MOSM/KG N 261-280 Glucose Level June 03, 2014 10:06am 143 MG/DL H 65-110 Glomerular Filtration Rate Calc June 03, 2014 10:06am 60 - BUN/Creatinine Ratio June 03, 2014 10:06am 14 RATIO N 6-26 Creatinine June 03, 2014 10:06am 1.0 MG/DL N 0.7-1.2 Blood Urea Nitrogen June 03, 2014 10:06am 14.0 MG/DL N 7-17 Anion Gap June 03, 2014 10:06am 12 MEQ/L N 5-15 Carbon Dioxide Level June 03, 2014 10:06am 28 MEQ/L N 22-30 Chloride Level June 03, 2014 10:06am 101 MEQ/L N 98-107 Potassium Level June 03, 2014 10:06am 3.8 MEQ/L N 3.6-5 Sodium Level June 03, 2014 10:06am 141 MEQ/L N 134-144 Influenza Type B Antigen June 03, 2014 10:09am Negative - Negative for Flu B protein antigen. Assay sensitivity is90%. Influenza Type A Antigen June 03, 2014 10:09am Negative - Negative for Flu A protein antigen. Assay sensitivity is90%. Turbidity June 03, 2014 10:06am < 20 0-20 Chemistry Specimen Hemolysis June 03, 2014 10:06am < 15 0-25 0-25: No Hemolysis.26-70: Slight Hemolysis - can falsely elevate K and Urine Protein. 71-285: Moderate Hemolysis - can falsely elevate K, Troponin I, CA 19-9, PTH, CSF GLucose, and Urine Protein, and can falsely decrease Phenytoin. 286-999: Gross Hemolysis - can falsely elevate K, Troponin I, CA 19-9, PTH, CSF Glucose, and Urine Protine, and can falsely decrease Phenytoin. Recommend specimen recollection. Icterus Index June 03, 2014 10:06am < 2 0-7 D-Dimer June 03, 2014 10:06am < 150 NG/ML 0-230 <230 NG/ML D-DU= PRESUMPTIVE NEGATIVE FOR PE OR DVT>230 NG/ML D-DU=ADDITIONAL EVAL FOR PE OR DVT RECOMMENDED Activated Partial Thromboplast Time June 03, 2014 10:06am 26.7 SEC N 24 -36 Ordering r/o VTE Yes Prothromb Time International Ratio June 03, 2014 10:06am 0.92 N 0.81- 1.09 THERAPUTIC RANGE=2.00-3.00 FOR ANTI-THROMBOSIS THERAPUTIC RANGE=2.50- 3.50 FOR IMPLANTED VALVE Immature Granulocyte # (Auto) June 03, 2014 10:06am 0.02 T/MM3 N 0.00- 0.03 Basophils # (Auto) June 03, 2014 10:06am 0.0 T/MM3 N 0-0.2 Eosinophils # (Auto) June 03, 2014 10:06am 0.3 T/MM3 N 0-0.5 Monocytes # (Auto) June 03, 2014 10:06am 0.3 T/MM3 N 0-0.8 Lymphocytes # (Auto) June 03, 2014 10:06am 1.5 T/MM3 N 1-4.8 Neutrophils # (Auto) June 03, 2014 10:06am 1.9 T/MM3 N 1.8-7.7 Immature Granulocyte % (Auto) June 03, 2014 10:06am 0.5 % N 0.0-0.5 Basophils (%) (Auto) June 03, 2014 10:06am 0.8 % N 0-2 Eosinophils (%) (Auto) June 03, 2014 10:06am 7.1 % H 0-4 Monocytes (%) (Auto) June 03, 2014 10:06am 7.1 % N 0-9.0 Lymphocytes (%) (Auto) June 03, 2014 10:06am 37.2 % N 23-45 Neutrophils (%) (Auto) June 03, 2014 10:06am 47.3 % N 33-66 Mean Platelet Volume June 03, 2014 10:06am 10.7 UM3 N 9.4-12.4 Platelet Count June 03, 2014 10:06am 232 T/MM3 N 130-400 RDW Standard Deviation June 03, 2014 10:06am 38.4 FL N 36.9-50.2 Mean Corpuscular Hemoglobin Concent June 03, 2014 10:06am 35.9 GM/DL N 31-37 Mean Corpuscular Hemoglobin June 03, 2014 10:06am 30.6 UUG N 26-34 Mean Corpuscular Volume June 03, 2014 10:06am 85.3 UM3 N 80-100 Hematocrit June 03, 2014 10:06am 37.6 % N 36-46 Hemoglobin June 03, 2014 10:06am 13.5 GM/DL N 12-16 Red Blood Count June 03, 2014 10:06am 4.41 M/MM3 N 4.00-5.20 White Blood Count June 03, 2014 10:06am 3.9 T/MM3 L 4.5-11.0 Glucometer June 03, 2014 9:28am 151 mg/dL H 65-110 Name: JENNIFER DU Unit #: [id number] : 1970 Sex: F Loc / Svc: ED DOS: 06/03/14 Signed Report #: [id number] DIAGNOSTIC IMAGING REPORT TYPE OF EXAM: CHEST, PA & LATERAL Dictated By: SHERINE GONZALEZ MD INDICATION: ITS.REASON: SHORTNESS OF BREATH, CHEST PAIN, COUGH, HX COPD CHF PE CHEST 2-VIEWS UPRIGHT (PA & LAT) COMPARISON: None FINDINGS: Lungs: Normal lung volumes. No focal airspace consolidation. Normal pulmonary vasculature. Pleura: No pleural effusion or pneumothorax. Heart and Mediastinum: The cardiac silhouette appears mildly enlarged. The great vessels of the thorax are within normal limits. Osseous Structures: The visualized osseous structures are within normal limits. IMPRESSION: No acute cardiopulmonary process. . Procedures No known history of procedures. Encounters Encounter Location Date/Time Departed Emergency Room [facility] 06/03/14 8:50am Recent Diagnosis
--- OUTSIDE RECORDS SUMMARY | 2016-06-25 15:53 | XMS REPORT | Continuity Of Care Document ---
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 Name Role Phone NASRIN MARTINEZ MD AT RENE DODD MD CP NON-PURPLE, [facility] PP Results Lab Results Visit/Account #[id number] (February 17, 2013 1:21pm - February 18, 2013 3: 38pm) Test Result Reported Date/Time G3 VENOUS STYPE DELIO February 17, 2013 3:52pm PH VENOUS(7.31-7.41) 7.42 February 17, 2013 3:52pm PCO2 VENOUS(41-51 mmHg) 44.7 mmHg February 17, 2013 3:52pm PO2 VENOUS(30-40 mmHg) 23 mmHg February 17, 2013 3:52pm HCO3(22-26 MMOL/L) 28.7 MMOL/L February 17, 2013 3:52pm TCO2(23-30 MMOL/L) 30 MMOL/L February 17, 2013 3:52pm SO2C VENOUS(75-75 %) 40 % February 17, 2013 3:52pm BASE EXCESS(0-3) 4 February 17, 2013 3:52pm FIO2(%) 21 % February 17, 2013 3:52pm POCGL POCGL(70-105 MG/DL) 321 MG/DL February 17, 2013 9:23pm 281 MG/DL February 18, 2013 6:12am 220 MG/DL February 18, 2013 10:01am 166 MG/DL February 18, 2013 2:31pm COMPLETE BLOOD COUNT WITH DIFF WHITE BLOOD COUNT(4.0-11.0 10E3/UL) 10.2 10E3/UL February 17, 2013 2:45pm RED BLOOD COUNT(3.80-5.20 10E6/UL) 4.36 10E6/UL February 17, 2013 2:45pm HEMOGLOBIN(12.0-16.0 G/DL) 13.3 G/DL February 17, 2013 2:45pm HEMATOCRIT(36.0-48.0 %) 37.7 % February 17, 2013 2:45pm MEAN CORPUSCULAR VOLUME(80.0-100.0 FL) 86.5 FL February 17, 2013 2:45pm MEAN CORPUSCULAR HEMOGLOBIN(27.0-34.0 PG) 30.5 PG February 17, 2013 2:45pm MEAN CORPUSCULAR HGB CONC(33.0-37.0 G/DL) 35.3 G/DL February 17, 2013 2:45pm RED CELL DISTRIBUTION WIDTH(11.0-15.0 %) 12.6 % February 17, 2013 2:45pm 777-3: PLATELET COUNT(130-400 10E3/UL) 258 10E3/UL February 17, 2013 2:45pm MEAN PLATELET VOLUME(7.4-11.0 FL) 9.5 FL February 17, 2013 2:45pm NEUTROPHILS % (AUTO)(40-70 %) 88 % February 17, 2013 2:45pm LYMPHOCYTES % (AUTO)(15-45 %) 7 % February 17, 2013 2:45pm MONOCYTES % (AUTO)(2-10 %) 3 % February 17, 2013 2:45pm EOSINOPHILS % (AUTO)(0-6 %) 0 % February 17, 2013 2:45pm BASOPHILS % (AUTO)(0-1 %) 0 % February 17, 2013 2:45pm IMMATURE GRANS % (AUTO)(0-0 %) 1 % February 17, 2013 2:45pm NUCLEATED RBCS (AUTO)(0-0 %) 0 % February 17, 2013 2:45pm NEUTROPHILS # (AUTO)(2.5-7.5 10E3/UL) 9.0 10E3/UL February 17, 2013 2:45pm LYMPHOCYTES # (AUTO)(1.0-4.0 10E3/UL) 0.8 10E3/UL February 17, 2013 2:45pm MONOCYTES # (AUTO)(0.2-0.8 10E3/UL) 0.3 10E3/UL February 17, 2013 2:45pm EOSINOPHILS # (AUTO)(0.0-0.4 10E3/UL) 0.0 10E3/UL February 17, 2013 2:45pm BASOPHILS # (AUTO)(0.0-0.2 10E3/UL) 0.0 10E3/UL February 17, 2013 2:45pm IMMATURE GRANS # (AUTO)(0.0-0.0 10E3/UL) 0.1 10E3/UL February 17, 2013 2:45pm DIFF TYPE AUTOMATED February 17, 2013 2:45pm COMPLETE BLOOD COUNT WHITE BLOOD COUNT(4.0-11.0 10E3/UL) 8.4 10E3/UL February 18, 2013 6:19am RED BLOOD COUNT(3.80-5.20 10E6/UL) 4.01 10E6/UL February 18, 2013 6:19am HEMOGLOBIN(12.0-16.0 G/DL) 12.3 G/DL February 18, 2013 6:19am HEMATOCRIT(36.0-48.0 %) 34.8 % February 18, 2013 6:19am MEAN CORPUSCULAR VOLUME(80.0-100.0 FL) 86.8 FL February 18, 2013 6:19am MEAN CORPUSCULAR HEMOGLOBIN(27.0-34.0 PG) 30.7 PG February 18, 2013 6:19am MEAN CORPUSCULAR HGB CONC(33.0-37.0 G/DL) 35.3 G/DL February 18, 2013 6:19am RED CELL DISTRIBUTION WIDTH(11.0-15.0 %) 12.6 % February 18, 2013 6:19am 777-3: PLATELET COUNT(130-400 10E3/UL) 218 10E3/UL February 18, 2013 6:19am MEAN PLATELET VOLUME(7.4-11.0 FL) 10.1 FL February 18, 2013 6:19am NUCLEATED RBCS (AUTO)(0-0 %) 0 % February 18, 2013 6:19am BASIC METABOLIC PANEL GLUCOSE(70-110 MG/DL) 213 MG/DL February 17, 2013 3:06pm BLOOD UREA NITROGEN(6-20 MG/DL) 17 MG/DL February 17, 2013 3:06pm CREATININE(0.50-1.20 MG/DL) 1.04 MG/DL February 17, 2013 3:06pm EST GLOMERULAR FILTRATION RATE(Greater than or equal to 60) 58 Result Comments: If the patient is of -[place] descent/extraction multiply the eGFR value by 1.212 to obtain the actual eGFR. >=60 mg/dL Normal 30-59 mg/dL Moderate Kidney Disease 15-29 mg/dL Severe Kidney Disease <15 mg/dL Kidney Failure February 17, 2013 3:06pm BUN CREATININE RATIO(10.0-20.0 RATIO) 16.0 RATIO February 17, 2013 3:06pm SODIUM(135-145 MMOL/L) 133 MMOL/L February 17, 2013 3:06pm POTASSIUM(3.6-5.0 MMOL/L) 3.5 MMOL/L February 17, 2013 3:06pm CHLORIDE(101-111 MMOL/L) 99 MMOL/L February 17, 2013 3:06pm CO2(21-31 MMOL/L) 27.0 MMOL/L February 17, 2013 3:06pm ANION GAP(8-18) 11 February 17, 2013 3:06pm OSMO CALCULATED(270.0-290.0) 274.3 February 17, 2013 3:06pm CALCIUM(8.5-10.5 MG/DL) 8.8 MG/DL February 17, 2013 3:06pm BETA NATRIURETIC PEPTIDE BETA NATRIURETIC PEPTIDE(0-100 PG/ML) 491 PG/ML February 17, 2013 3:37pm Microbiology Results Visit/Account #[id number] (February 17, 2013 1:21pm - February 18, 2013 3: 38pm) Procedure Result Specimen #: [id number] MRSA SCREEN FOR INFEC CONTROL Result Instance On February 19, 2013 8:45am Source: NARE Special Result Comments: NO MRSA ISOLATED Specimen #: [id number] SPUTUM GRAM STAIN Result Instance On February 17, 2013 9:32pm Source: SPUTUM Result Prompts: SPUTUM GRADE GRADE 6 (ADEQUATE): <25 WBC/LPF; <10 EPITHELIAL CELLS/LPF WBC/HPF 0-5 BACTERIA SEEN 1+ MIXED MARCELO SPUTUM CULTURE Result Instance On February 19, 2013 9:20am Source: SPUTUM Organism: ROUTINE RESPIRATORY MARCELO COLONY COUNT SMALL AMOUNT Result Procedures Visit/Account #[id number] (February 17, 2013 1:21pm - February 18, 2013 3: 38pm) Department: DIAGNOSTIC IMAGING [ Report: Diagnostic Imaging Report ] Diagnostic Imaging Report Dictated By: MO GARCIA MD Signed By: MO GARCIA MD Method of Transportation: S Pertinent Items in Place: N Currently : N Reason for exam: soa Isolation #1: S Isolation?: N [address] [address] ~Department of Radiology~ Patient: MARY DU Ewa Unit/MR#: [id number] : 1970 Age: 42 Sex: F Report#: [id number] Room#: 404-A Location: [address] [place] [address] Dr: EDDIE PAUL MD Tech: Abimbola Farfan Attn: Dr: NASRIN MARTINEZ MD Signed DIAGNOSTIC XRAY Dt/Tm of Exam: 02/18/13 0600 Exam Description: XR CHEST 2V Reason for Exam: soa cc: NON-PURPLE, [facility] EDDIE PAUL MD [facility] ~ EXAM: XR CHEST 2V at 0744 hours COMPARISON:February 16, 2013. February 14, 2013. HISTORY: soa. Asthma exacerbation. COPD exacerbation. Shortness of air. Site of Dictation: [facility]. FINDINGS: The heart is upper limits of normal to mildly enlarged. The lungs are clear. Pulmonary vascularity appears unremarkable. No pleural effusion is identified. There may be some mild peribronchial cuffing which could be seen with reactive airways disease or a bronchitis. IMPRESSION: 1. The heart is upper limits of normal to mildly enlarged. 2. Mild peribronchial cuffing which could be seen with reactive airways disease or bronchitis. Transcribed By: SPEECHQ 02/18/13 0822 Dictated By: MO GARCIA MD Signed By: MO GARCIA MD 02/18/13 0910 Allergies and Adverse Reactions Allergies and Adverse Reactions Patient Unit Number: [id number] Agent Type Reaction Severity Status Date NO KNOWN ALLERGIES Drug Allergy Unknown Mild Active June 26, 2008 Vital Signs Vital Signs Visit/Account #[id number] (February 17, 2013 1:21pm - February 18, 2013 3: 38pm) Label First Result Last Result 2710-2: O2% 97 % February 17, 2013 4:50pm 98 % February 18, 2013 2:39pm 3141-9: Weight Measured 119.5000 kg February 17, 2013 5:02pm 119.5000 kg February 17, 2013 5:02pm 8310-5: Body Temperature 97.6 degF February 17, 2013 1:15pm 8310-5: Celsius Body Temperature 36.60143 Alyse February 17, 2013 4:50pm 36.11097 Alyse February 18, 2013 2:39pm 8310-5: Fahrenheit Body Temperature 97.5 [degF] February 18, 2013 2:39pm 8480-6: BP Systolic 139/ mmHg February 17, 2013 1:15pm 144/98 mm[Hg] February 18, 2013 2:39pm 8867-4: Heart Rate 69 /min February 17, 2013 1:15pm 68 /min February 18, 2013 2:39pm 9279-1: Respiratory Rate 26 /min February 17, 2013 1:15pm 22 /min February 18, 2013 2:39pm Unmapped Query Mnemonic (RESP.SAT) Saturation 97 % February 17, 2013 1:15pm 97 % February 17, 2013 1:15pm Home Medications Home Medications Visit/Account #[id number] (February 17, 2013 1:21pm - February 18, 2013 3: 38pm) Medication Dose Route Sig/Schedule Precondition/Indication Comments/ Instructions NDC Aspirin(ASPIRIN) 325 MG TABLET.DR 325 MG PO: ORAL DAILY: DAILY Aspirin (ASPIRIN): 92972438091 DELTASONE(PredniSONE) 20 MG TAB 20 MG PO: ORAL DIRECTED: DIRECTED Rx Instructions: TAPER STARTED TODAY: 3 TABS X 3 DAYS, THEN 2 TABS X 3 DAYS, THEN 1 TAB X 3 DAYS, THEN 1/2 TAB X 4 DAYS. DELTASONE (PredniSONE): 60241504063 GLUCOPHAGE(MetFORMin HCL) 500 MG TABLET 500 MG PO: ORAL BIDWM: WITH BREAKFAST & SUPPER GLUCOPHAGE (MetFORMin HCL): 71054727832 Lisinopril(LISINOPRIL) 20 MG TABLET 20 MG PO: ORAL DAILY: DAILY Lisinopril (LISINOPRIL): 98009262449 Discontinued Medications Medication Dose Route Sig/Schedule Precondition/Indication Comments/ Instructions NDC VIBRAMYCIN(DOXYCYCLINE HYCLATE) 100 MG CAPSULE 100 MG PO: ORAL BID: TWICE A DAY Status: Discontinued as of 02/17/2013 4:14pm Rx Instructions: Disp from Hospital pharmacy (script written) VIBRAMYCIN (DOXYCYCLINE HYCLATE): [id number] Aspirin Lite-Coat(ASPIRIN) 325 MG TABLET 325 MG PO: ORAL DAILY: DAILY Status: Discontinued as of 02/17/2013 4:14pm Aspirin Lite-Coat (ASPIRIN): 21344915877 Prednisone(PredniSONE) 20 MG TAB 1 TAB PO: ORAL DAILY: DAILY Status: Discontinued as of 02/17/2013 4:14pm Rx Instructions: 3 tabs x 3 days 2 tabs x 3 days 1 tab x 3 days 1/2 tab x 4 days Disp #14 Rx Note Text Comments: Disp from hospital pharmacy Prednisone (PredniSONE): 22236126058 COMBIVENT INH(ALBUTEROL/IPRATROPIUM) 14.7 GM PUFF 2 PUFF INH: INHALED BID: TWICE A DAY Status: Discontinued as of 02/17/2013 4:14pm Rx Instructions: PUFF(S) Rx Note Text Comments: sample rx packet given to patient COMBIVENT INH (ALBUTEROL/IPRATROPIUM): 37570682561 FLEXERIL(CYCLOBENZAPRINE HCL) 10 MG TAB 10 MG PO: ORAL TID: 3 TIMES A DAY Status: Discontinued as of 02/17/2013 4:14pm FLEXERIL (CYCLOBENZAPRINE HCL): 81993884405 Fioricet(ACETAMIN/BUTALBITAL/CAFFEINE) 1 TAB TAB 1 TAB PO: ORAL Q6: EVERY 6 HOURS Status: Discontinued as of 02/17/2013 4:14pm Fioricet (ACETAMIN/BUTALBITAL/CAFFEINE): 63578119539 Prednisone(PredniSONE) 20 MG TAB 60 MG PO: ORAL DAILY: DAILY Status: Discontinued as of 02/17/2013 4:14pm Prednisone (PredniSONE): 98204889531 Zithromax (Z-Pack)(AZITHROMYCIN) 250 MG TAB 1 TAB PO: ORAL DIRECTED: DIRECTED Status: Discontinued as of 02/17/2013 4:14pm Rx Instructions: TAKE 2 TABLETS TODAY THEN 1 TABLET DAILY ON DAYS 2-5. Zithromax (Z-Pack) (AZITHROMYCIN): 55467383804 PHENERGAN W/CODEINE(PROMETHAZINE HCL/CODEINE) 5 ML SYRUP 5 ML PO: ORAL Q6S: EVERY 6 HOURS Status: Discontinued as of 02/17/2013 4:14pm PHENERGAN W/CODEINE (PROMETHAZINE HCL/CODEINE): 40927515518 Deltasone(PredniSONE) 20 MG TAB 60 MG PO: ORAL DAILY: DAILY Status: Discontinued as of 02/17/2013 4:14pm Rx Instructions: Correct dosinmg po x 3d 40mg po x 3d 20mg po x 3d 10mg po x 3d then d/c Deltasone (PredniSONE): 35355746129 Ordered Medications Ordered Medications Visit/Account #[id number] (February 17, 2013 1:21pm - February 18, 2013 3: 38pm) Medication Dose Route Sig/Schedule Precondition/Indication Comments/ Instructions NDC VENTOLIN 0.5% NEB(ALBUTEROL) 2.5 MG/0.5 ML INHALER 5 MG INH: INHALED NOW: NOW Rx Order Comments: Order placed as verified: Dose Warnings differ from order checker Dose Warnings differ from order checker VENTOLIN 0.5% NEB (ALBUTEROL): 06376602915 ATROVENT 0.02% NEB(IPRATROPIUM BROMIDE) 0.5 MG/2.5 ML SOLUTION 0.5 MG INH: INHALED NOW: NOW Rx Order Comments: Order placed as verified: Dose Warnings differ from order checker Dose Warnings differ from order checker ATROVENT 0.02% NEB (IPRATROPIUM BROMIDE): 34491933752 IV Medication Carriers: MAGNESIUM SULFATE 2 GM/50 ML INJECTION 50 GM IV: INTRAVEN NOW (Rate: 150 MLS/HR Duration: 20 MIN) Rx Order Comments: Order placed as verified: Dose Warnings differ from order checker Dose Warnings differ from order checker Carriers: (MAGNESIUM SULFATE): 81489888182 Solu-MEDROL INJ(MethylPREDNISolone SOD SUCC) 125 MG/2 ML INJECTION 125 MG IV: INTRAVEN NOW: NOW Rx Order Comments: Order placed as verified: Dose Warnings differ from order checker Dose Warnings differ from order checker Solu-MEDROL INJ (MethylPREDNISolone SOD SUCC): 07647285104 VENTOLIN 0.5% NEB(ALBUTEROL) 2.5 MG/0.5 ML INHALER 10 MG INH: INHALED NOW: NOW Rx Order Comments: Order placed as verified: Dose Warnings differ from order checker Dose Warnings differ from order checker VENTOLIN 0.5% NEB (ALBUTEROL): 70429536572 ATROVENT 0.02% NEB(IPRATROPIUM BROMIDE) 0.5 MG/2.5 ML SOLUTION 0.5 MG INH: INHALED Q6H ATROVENT 0.02% NEB (IPRATROPIUM BROMIDE): 66118506935 VENTOLIN 0.5% NEB(ALBUTEROL) 2.5 MG/0.5 ML INHALER 5 MG INH: INHALED Q4H VENTOLIN 0.5% NEB (ALBUTEROL): 42129869399 VENTOLIN 0.5% NEB(ALBUTEROL) 2.5 MG/0.5 ML INHALER 5 MG INH: INHALED Q2H PRN Reason: PRN Reason: SHORTNESS OF BREATH/WHEEZING Rx Order Comments: Order filed UNV: Allergies/Duplicates/Interactions differ from order checker VENTOLIN 0.5% NEB (ALBUTEROL): 94256614381 LEVAQUIN(LEVOFLOXACIN) 500 MG TAB 500 MG PO: ORAL NOW: NOW Rx Order Comments: Order placed as verified: Dose Warnings differ from order checker Dose Warnings differ from order checker Label Comments: Take 2 hrs before or after antacids, sucralfate, metal cations(iron), or multi-vitamins LEVAQUIN (LEVOFLOXACIN): 37339953069 LEVAQUIN(LEVOFLOXACIN) 500 MG TAB 500 MG PO: ORAL DAILY@10 Label Comments: Take 2 hrs before or after antacids, sucralfate, metal cations(iron), or multi-vitamins LEVAQUIN (LEVOFLOXACIN): 48422413584 ECOTRIN(ASPIRIN) 325 MG TAB 325 MG PO: ORAL DAILY: DAILY ECOTRIN (ASPIRIN): 34496642180P ZESTRIL(LISINOPRIL) 20 MG TAB 20 MG PO: ORAL DAILY: DAILY Label Comments: MAY INCREASE FALL RISK ZESTRIL (LISINOPRIL): 94485558557G IV Medication Carriers: SODIUM CHLORIDE 0.9%- POTASSIUM CHLOR 40 MEQ(KCL/SODIUM CHLORIDE) 40 MEQ/1000 ML INJECTION 1000 MEQ IV: INTRAVEN .[id number] (Rate: 80 MLS/HR Duration: 12 HR 30 MIN) Label Comments: Expires 24 HRS after package opened Carriers: SODIUM CHLORIDE 0.9%- POTASSIUM CHLOR 40 MEQ (KCL/SODIUM CHLORIDE): 92498613216 LEVEMIR FLEXPEN(INSULIN DETEMIR) 300 UNITS/3 ML INJECTION 5 UNITS SC: SUBCUTANEOUSLY HS: AT BEDTIME Label Comments: SUBST FOR LANTUS 5 UNITS AT BEDTIME EXP 42 DAYS AFTER DISPENSE DATE. LEVEMIR FLEXPEN (INSULIN DETEMIR): 30364086464 LOVENOX(ENOXAPARIN) 40 MG/0.4 ML INJECTION 40 MG SC: SUBCUTANEOUSLY DAILY@07 Label Comments: INJECT SC INTO ABDOMINAL WALL ONLY. LOVENOX (ENOXAPARIN): 88459193310 MOTRIN(IBUPROFEN) 600 MG TAB 600 MG PO: ORAL Q6H PRN Reason: PRN Reason: PAIN OR FEVER Label Comments: TAKE WITH FOOD OR MILK MOTRIN (IBUPROFEN): 88129386318S GUAITUSS AC 100/10/5(GuaiFENesin/CODEINE) 5 ML SYRUP 10 ML PO: ORAL Q4H PRN Reason: PRN Reason: COUGH GUAITUSS AC 100/10/5 (GuaiFENesin/CODEINE): 08483762676 RICOLA(MENTHOL) 1 PHILLIP LOZENGE 1 PHILLIP PO: ORAL PRN: NEEDED PRN Reason: PRN Reason: COUGH Rx Order Comments: Order filed UNV: Dose Warnings differ from order checker JAMIE (MENTHOL): 79731721297Y Solu-MEDROL INJ(MethylPREDNISolone SOD SUCC) 125 MG/2 ML INJECTION 125 MG IV: INTRAVEN NOW: NOW Solu-MEDROL INJ (MethylPREDNISolone SOD SUCC): 26539021676 K-DUR(POTASSIUM CHLORIDE) 20 MEQ TAB 40 MEQ PO: ORAL NOW: NOW Label Comments: TAKE WITH FOOD TO AVOID GI UPSET K-DUR (POTASSIUM CHLORIDE): 49704660559L Discharge Medications Discharge Medications Visit/Account #[id number] (February 17, 2013 1:21pm - February 18, 2013 3: 38pm) Medication Dose Route Sig/Schedule Precondition/Indication Comments/ Instructions NDC Aspirin(ASPIRIN) 325 MG TABLET.DR 325 MG PO: ORAL DAILY: DAILY Aspirin (ASPIRIN): 05440070067 GLUCOPHAGE(MetFORMin HCL) 500 MG TABLET 500 MG PO: ORAL BIDWM: WITH BREAKFAST & SUPPER GLUCOPHAGE (MetFORMin HCL): 59384728433 Lisinopril(LISINOPRIL) 20 MG TABLET 20 MG PO: ORAL DAILY: DAILY Lisinopril (LISINOPRIL): 17054985091 VENTOLIN 0.5% NEBS(ALBUTEROL) 2.5 MG/0.5 ML INHALER 5 MG INH: INHALED Q2H Converted from Pharmacy Inpatient Medication VENTOLIN 0.5% NEBS (ALBUTEROL): 90686244096 LEVAQUIN(LEVOFLOXACIN) 500 MG TAB 500 MG PO: ORAL DAILY@10 Converted from Pharmacy Inpatient Medication LEVAQUIN (LEVOFLOXACIN): 79096986399 ADVAIR DISKUS 50-500(FLUTICASONE/SALMETEROL) 14 DOSE DISK.W.DEV 0 DOSE INH: INHALED RTBID: TWICE DAILY Converted from Pharmacy Inpatient Medication ADVAIR DISKUS 50-500 (FLUTICASONE/SALMETEROL): 61304890555L DELTASONE(PredniSONE) 50 MG TAB 50 MG PO: ORAL DAILY: DAILY Rx Instructions: Finish up dose that was received in the emergency room from her previous visit. DELTASONE (PredniSONE): 81453091009 GUAIFENESIN-CODEINE LIQUID(GUAIFENESIN/CODEINE PHOSPHATE) 118 ML LIQUID 118 ML PO: ORAL Q4S: EVERY 4 HOURS GUAIFENESIN-CODEINE LIQUID (GUAIFENESIN/CODEINE PHOSPHATE): 40317083155 Discontinued Medication Dose Route Sig/Schedule Precondition/Indication Comments/ Instructions NDC DELTASONE(PredniSONE) 20 MG TAB 20 MG PO: ORAL DIRECTED: DIRECTED Status: Discontinued as of 02/18/2013 1:46pm Rx Instructions: TAPER STARTED TODAY: 3 TABS X 3 DAYS, THEN 2 TABS X 3 DAYS, THEN 1 TAB X 3 DAYS, THEN 1/2 TAB X 4 DAYS. DELTASONE (PredniSONE): 98811332080 History Of Encounters Encounters Visit/Account #[id number] (February 17, 2013 1:21pm - February 18, 2013 3: 38pm) HISTORY AND PHYSICAL February 17, 2013 8:34pm Dictated By: EDDIE PAUL MD Signed By: EDDIE PAUL MD [address] [address] Patient: ANA LAURAMARY Mcneil UNIT/MR#: [id number] : 1970 Age: 42 Sex: F Report#: [id number] Room#: 404-A Location: [facility] Dictator: EDDIE PAUL MD-(PGY1) Attn Phys: NASRIN MARTINEZ MD Adm Date: 02/17/13 02/17/13 Disch Date: 02/18/13 ~HISTORY AND PHYSICAL~ Signed DICTATED FOR: NASRIN MARTINEZ MD CHIEF COMPLAINT: Shortness of breath. HISTORY OF PRESENT ILLNESS: This patient is a 42-year-old female who presented to the emergency room with shortness of breath and wheezing for the past 3-4 days. She was seen in the ER February 14 and given Z-Franc and prednisone. She states that she has been taking these as prescribed. She states that her symptoms have not significantly improved and her shortness of breath has been worsening. She currently has an albuterol MDI inhaler home, but is unable to afford a nebulizer for breathing treatments at this time. While in the ER, the patient received nebulized breathing treatments, IV steroids, and magnesium. Her symptoms of shortness of air had significantly improved during this time; however, her symptoms have not resolved. It is likely that she will require more breathing treatments per the ER staff who was in charge of her care. PAST MEDICAL HISTORY: Hypertension, DVT, CHF, asthma, COPD, headaches, diabetes, and dyslipidemia. PAST SURGICAL HISTORY: x5 and tubal ligation. ALLERGIES: NO KNOWN DRUG ALLERGIES. MEDICATIONS: 1. Aspirin 325 mg p.o. daily. 2. Lisinopril 20 mg p.o. daily. 3. Metformin 500 mg p.o. b.i.d. 4. Prednisone 20 mg p.o. daily, to be tapered. SOCIAL HISTORY: The patient denies any tobacco, alcohol, or illicit drug use. FAMILY HISTORY: Substance abuse in mother and father. Mother at unknown age due to ovarian cancer. REVIEW OF SYSTEMS: GENERAL: Well-developed, well-nourished, obese female in no acute distress. Denies any recent weight changes, fatigue, weakness, fevers, chills, or sweats. She denies having any rashes, bruising, or recent trauma to her body. She does report significant shortness of breath over the past 3-5 days, for which she had sought care for in the ER previously. She denies any chest pain, abdominal pain, changes in bowel or bladder, weakness, tingling, or numbness, dysphagia, nausea, or vomiting. PHYSICAL EXAMINATION: VITAL SIGNS: 97.6, 69, 26, 139/95, 97% on room air. GENERAL: Well-developed, well-nourished female in no acute distress, obese. HEENT: NC/AT, EOMI, PERRL, moist mucous membranes, normal TMs, no edema or erythema of pharynx. NECK: Supple, no thyromegaly. CV: RR, no murmurs. PULM: Course breath sounds, stridorous bilaterally. ABDOMEN: Nontender to palpation, bowel sounds present, no masses. EXTREMITIES: No edema or trauma. SKIN: No rashes or bruising. NEURO: Cranial nerves 2-12 intact as tested. PSYCH: Normal mood and affect. LABORATORY: White blood cells 2.2, hemoglobin 13.3, MCV 88.5, platelets 258, and neutrophils 88%. Sodium is 133, potassium 3.5, chloride 99, CO2 of 27, anion gap 11, BUN 17, creatinine 1.04. YGA-uo-krlxadzdyl ratio 16.0, glucose 213, osmolality 274, calcium 8.8, BNP 491. Arterial venous gas showed a pH of 7.42, PCO2 of 44.7, pO2 of 23, ABG bicarb 28.7, VBG O2 sat 40, base excess 4, FiO2 of 21. ASSESSMENT AND PLAN: 1. Asthma/chronic obstructive pulmonary disease exacerbation, breathing treatments scheduled and p.r.n. We will continue IV steroids daily. We will start Levaquin p.o. and discontinue azithromycin. 2. Diabetes mellitus noninsulin dependent. We will check blood sugars q.4 hours. Hold metformin at this time. 3. Hypertension. We will continue home medications. 4. Gastrointestinal prophylaxis. We will start omeprazole. 5. Deep venous thrombosis. We will use Lovenox. DDT:MedQ [id number] D. 02/17/2013 T. 02/17/2013 CC: MD NASRIN MCKEON MD ~ Dictated By: EDDIE PAUL MD-(PGY1) 02/17/132033 Signed By: EDDIE PAUL MD-(PGY1) 02/23/13 2573 NASRIN MARTINEZ MD 02/20/13 2158 DISCHARGE SUMMARY February 24, 2013 4:08pm Dictated By: EDDIE PAUL MD Signed By: [address] [place] [address] Patient: MARY DU UNIT/MR#: [id number] : 1970 Age: 42 Sex: F Report#: [id number] Room#: 404-A Location: [facility] Dictator: EDDIE PAUL MD-(PGY1) Attn Phys: NASRIN MARTINEZ MD Adm Date: 02/17/13 02/17/13 Disch Date: 02/18/13 ~DISCHARGE SUMMARY~ Draft DICTATED FOR: NASRIN MARTINEZ MD ADMISSION DIAGNOSES: 1. Asthma/chronic obstructive pulmonary disease exacerbation. 2. Diabetes mellitus, non-insulin dependent. 3. Hypertension. DISCHARGE DIAGNOSES: 1. Asthma/chronic obstructive pulmonary disease exacerbation. 2. Diabetes mellitus, non-insulin dependent. 3. Hypertension. SERVICE: [facility]. HISTORY AND PHYSICAL EXAM: The patient is a 42-year-old female, who presented to the emergency room with shortness of breath and wheezing for approximately 4 days. She had been seen previously in the ER on February 14 and was provided with Z-Franc and prednisone, for what appeared to be an upper respiratory infection, causing her shortness of breath. Her symptoms had not improved, and in fact, significantly worsened, and 3 days later she had decided to present to the emergency room for assistance. She currently has an albuterol MDI inhaler at home, however, is unable to afford a nebulizer to provide albuterol breathing treatment on her own. HOSPITAL COURSE: In the emergency room, she had received nebulized breathing treatment, steroids, and magnesium. Symptoms of shortness of air had significantly improved during this time, but not resolved. It was obvious that she would require further nebulized breathing treatments, which she was unable to provide for herself at home. At that time, it was decided to admit the patient and provide her with the inpatient care she required. After scheduled and p.r.n. breathing treatments over the night in addition to antitussives, Tylenol and ibuprofen, the patient's symptoms had nearly resolved. She continued to receive IV steroids as well as Levaquin, which was started in the emergency room over concern of community-acquired pneumonia. While in the hospital, the patient did receive home medications for her hypertension. Her metformin was held for her diabetes mellitus, which was noninsulin dependent. The following morning, the patient did not require oxygen and her cough and wheezing were much better. She received another dose of IV steroids, oral potassium, and another nebulized treatment prior to dismissal. It was arranged for her to restart Advair and have a home nebulizer with medication from the [facility] and a [facility] appointment that was set up on the day of her dismissal. In addition, she was to finish the steroid taper and complete her course of Levaquin. She is to be seen at [facility] in followup at the end of that current week. DISCHARGE CONDITION: Stable. DISPOSITION: Discharged to home. MEDICATIONS: Ventolin 0.5% nebs q.2h p.r.n. Levaquin 500 mg tabs p.o. daily. Prednisone 50 mg tab p.o. x5 days. Advair Diskus 50-500 14-dose puff inhaled RT b.i.d., ASA 325 mg daily. Guaifenesin-Codeine liquid 118 mL p.o. q.4h p.r.n., lisinopril 20 mg p.o. daily, metformin 500 mg p.o. b.i.d. DISCONTINUED MEDICATIONS: Prednisone 20 mg p.o. INSTRUCTIONS: Activity as tolerated. The patient is to use nebulized breathing treatment in addition to Advair Diskus along with other home medications as prescribed. Follow up at [facility] within 3 to 4 days. If symptoms worsen or onset of new concerning symptoms, the patient is to contact physician immediately. DDT:MedQ [id number] D. 02/24/2013 T. 02/25/2013 CC: MD NASRIN MCKEON MD ~ Dictated By: EDDIE PAUL MD-(PGY1) 02/24/13 1608 Signed By:
--- OUTSIDE RECORDS SUMMARY | 2016-06-25 15:53 | XMS REPORT | Continuity Of Care Document ---
Author Author [facility] Organization [facility] Address [address] [place] [address] Phone Care Team Providers Care Bow Rehairer Name Role Phone MORENA CASTELAN DO AT NON-PURPLE, [facility] PP Results Lab Results Visit/Account #[id number] (February 14, 2013 2:57pm - February 14, 2013 4: 04pm) Test Result Reported Date/Time POCGL POCGL(70-105 MG/DL) 158 MG/DL February 14, 2013 3:40pm Result Procedures Visit/Account #[id number] (February 14, 2013 2:57pm - February 14, 2013 4: 04pm) Department: DIAGNOSTIC IMAGING [ Report: Diagnostic Imaging Report ] Diagnostic Imaging Report Dictated By: TYRONE DOSHI MD Signed By: TYRONE DOSHI MD Method of Transportation: B Pertinent Items in Place: IV What ER Room is the patient in?: 16 Currently : N Reason for exam: cough/wheezing [address] [id number] ~Department of Radiology~ Patient: MARY DU Unit/MR#: [id number] : 1970 Age: 42 Sex: F Report#: [id number] Room#: Location: ED Order Dr: MORENA CASTELAN DO Tech: Serenity Borja Attn: Dr: Signed DIAGNOSTIC XRAY Dt/Tm of Exam: 02/14/13 1504 Exam Description: XR CHEST 2V Reason for Exam: cough/wheezing cc: NON-PURPLE, [facility] MORENA CASTELAN DO [facility] ~ EXAM: Chest PA and lateral DATE: 02/14/2013 at 1518 hours LOCATION OF DICTATION: Main HISTORY: 42-year-old female with cough and wheezing, shortness of breath COMPARISON: 10/02/2012 FINDINGS: The heart is upper limits of normal. The trachea is midline. Hemidiaphragms are smooth in contour with sharp angles. The lungs are fully expanded and show no obvious alveolar infiltrates, mass lesions, or increase in the pulmonary vascularity. The bony structures are unremarkable. IMPRESSION: No active disease is seen in the chest. Borderline cardiomegaly Transcribed By: SPEECHQ 02/14/13 1531 Dictated By: TYRONE DOSHI MD Signed By: TYRONE DOSHI MD 02/14/13 1539 Allergies and Adverse Reactions Allergies and Adverse Reactions Patient Unit Number: [id number] Agent Type Reaction Severity Status Date NO KNOWN ALLERGIES Drug Allergy Unknown Mild Active June 26, 2008 Vital Signs Vital Signs Visit/Account #[id number] (February 14, 2013 2:57pm - February 14, 2013 4: 04pm) Label First Result Last Result 3141-9: Weight Measured 248 lbs February 14, 2013 2:55pm 112.997174 kg February 14, 2013 2:55pm 8310-5: Body Temperature 97.7 degF February 14, 2013 2:55pm 8310-5: Fahrenheit Body Temperature 98.4 [degF] February 14, 2013 3:58pm 8480-6: BP Systolic 145/ mmHg February 14, 2013 2:55pm 88/ mm[Hg] February 14, 2013 3:58pm 8867-4: Heart Rate 96 /min February 14, 2013 2:55pm 99 /min February 14, 2013 3:58pm 9279-1: Respiratory Rate 28 /min February 14, 2013 2:55pm 22 /min February 14, 2013 3:03pm Unmapped Query Mnemonic (RESP.SAT) Saturation 99 % February 14, 2013 2:55pm 99 % February 14, 2013 2:55pm Ordered Medications Ordered Medications Visit/Account #[id number] (February 14, 2013 2:57pm - February 14, 2013 4: 04pm) Medication Dose Route Sig/Schedule Precondition/Indication Comments/ Instructions NDC VENTOLIN 0.5% NEB(ALBUTEROL) 2.5 MG/0.5 ML INHALER 5 MG INH: INHALED NOW: NOW Rx Order Comments: Order placed as verified: Dose Warnings differ from pit recorder Dose Warnings differ from pit recorder VENTOLIN 0.5% NEB (ALBUTEROL): [id number] ATROVENT 0.02% NEB(IPRATROPIUM BROMIDE) 0.5 MG/2.5 ML SOLUTION 0.5 MG INH: INHALED NOW: NOW Rx Order Comments: Order placed as verified: Dose Warnings differ from pit recorder Dose Warnings differ from pit recorder ATROVENT 0.02% NEB (IPRATROPIUM BROMIDE): [id number] Solu-MEDROL INJ(MethylPREDNISolone SOD SUCC) 125 MG/2 ML INJECTION 125 MG IV: INTRAVEN NOW: NOW Rx Order Comments: Order placed as verified: Dose Warnings differ from pit recorder Dose Warnings differ from pit recorder Solu-MEDROL INJ (MethylPREDNISolone SOD SUCC): [id number] VENTOLIN 0.5% NEB(ALBUTEROL) 2.5 MG/0.5 ML INHALER 5 MG INH: INHALED NOW: NOW Rx Order Comments: Order placed as verified: Dose Warnings differ from pit recorder Dose Warnings differ from pit recorder VENTOLIN 0.5% NEB (ALBUTEROL): [id number] ATROVENT 0.02% NEB(IPRATROPIUM BROMIDE) 0.5 MG/2.5 ML SOLUTION 0.5 MG INH: INHALED NOW: NOW Rx Order Comments: Order placed as verified: Dose Warnings differ from pit recorder Dose Warnings differ from pit recorder ATROVENT 0.02% NEB (IPRATROPIUM BROMIDE): [id number] History Of Encounters Encounters Visit/Account #[id number] (February 14, 2013 2:57pm - February 14, 2013 4: 04pm) No reports exist, or have been identified for inclusion with this encounter.
--- OUTSIDE RECORDS SUMMARY | 2016-06-25 15:53 | XMS REPORT | Continuity Of Care Document ---
Author Author [facility] Organization [facility] Address [address] [place] [address] Phone Care Team Providers Care Writing Tutor Name Role Phone UNASSIGNED, PHYSICIAN Unavailable Unavailable Liz LAMA MD AT NOT NEEDED, NSP Unavailable Unavailable Results Results No Result Data Allergies and Adverse Reactions Allergies and Adverse Reactions Patient Unit Number: [id number] Agent Type Reaction Severity Status Date NO KNOWN ALLERGIES Drug Allergy Unknown Mild Active Unknown Date Problem List Problem List Visit/Account #[id number] (August 13, 2013 9:32am - August 13, 2013 12:15pm) Acute Problems: Code/Condition Comments Documented Start Date Documented Resolved Date Code (s) COPD exacerbation ICD10: J44.1 Obstructive chronic bronchitis with exacerbation ICD9: 491.21 Obstructive chronic bronchitis with exacerbation SNOMED: 795563646 Obstructive chronic bronchitis with exacerbation Plan of Care Plan Of Care Visit/Account #[id number] (August 13, 2013 9:32am - August 13, 2013 12:15pm) Instructions/Comments: Chronic Bronchitis Follow with primary care DrHelena in one week. Use albuterol breathing treatments every 4 hours when necessary cough/shortness of breath. Take prednisone as prescribed. Your next dose is tomorrow. Take COUGH medicine as needed. Return to the emergency room if symptoms worsens or has any concern. Watch your blood sugars since you are on prednisone. Vital Signs Vital Signs Visit/Account #[id number] (August 13, 2013 9:32am - August 13, 2013 12:15pm) Label First Result Last Result 314-9: Weight Measured 237 lbs August 13, 2013 9:30am 107.338326 kg August 13, 2013 9:30am 8310-5: Body Temperature 98.6 degF August 13, 2013 9:30am 8310-5: Fahrenheit Body Temperature 98.2 [degF] August 13, 2013 12:13pm 8480-6: BP Systolic 145/ mmHg August 13, 2013 9:30am 81/ mm[Hg] August 13, 2013 12:13pm 8867-4: Heart Rate 88 /min August 13, 2013 9:30am 73 /min August 13, 2013 12:13pm 9279-1: Respiratory Rate 20 /min August 13, 2013 9:30am 18 /min August 13, 2013 12:13pm Unmapped Query Mnemonic (RESP.SAT) Saturation 99 % August 13, 2013 9:30am 99 % August 13, 2013 9:30am Unmapped Query Mnemonic (VS.BMI) Body Mass Index (BMI) 39 August 13, 2013 9:30am 39 August 13, 2013 9:30am Functional Status Functional Status No Functional Status Data Medications Inpatient/Ordered Medications Visit/Account #[id number] (August 13, 2013 9:32am - August 13, 2013 12:15pm) Medication Route Sig/Schedule Precondition/Indication Comments/Instructions Codes ATROVENT 0.02% NEB(IPRATROPIUM BROMIDE) 0.5 MG/2.5 ML SOLUTION Total Dose: 0.5 MG INHALED NOW: NOW Rx Order Comments: Order placed as verified: Dose Warnings differ from order manager Dose Warnings differ from order manager ATROVENT 0.02% NEB (IPRATROPIUM BROMIDE) RxNorm: E216968 ATROVENT 0.02% NEB (IPRATROPIUM BROMIDE) NDC: 52447248170 VENTOLIN 0.5% NEB(ALBUTEROL SULF) 2.5 MG/0.5 ML INHALER Total Dose: 5 ML INHALED NOW: NOW Rx Order Comments: Order placed as verified: Dose Warnings differ from order manager Dose Warnings differ from order manager Label Comments: <may be substituted for Xopenex> VENTOLIN 0.5% NEB (ALBUTEROL SULF) RxNorm: G276379 VENTOLIN 0.5% NEB (ALBUTEROL SULF) NDC: 46402384225 DELTASONE(PredniSONE) 20 MG TAB Total Dose: 60 MG ORAL NOW: NOW Rx Order Comments: Order placed as verified: Dose Warnings differ from order manager Dose Warnings differ from order manager Label Comments: TAKE WITH FOOD OR MILK DELTASONE (PredniSONE) RxNorm: S288137 DELTASONE (PredniSONE) ND: 11984318144 History Of Encounters Encounters Visit/Account #[id number] (August 13, 2013 9:32am - August 13, 2013 12:15pm) Account Status Physican Of Record Reason For Visit Visit Diagnosis Start Date/Time Stop Date/Time ER JACK LAMA MD COPD, COUGH 786.2: COUGH ICD9 August 13, 2013 9:32am August 13, 2013 12:15pm History of Procedures Procedure List No Procedures Discharge Instructions Discharge Instructions Visit/Account #[id number] (August 13, 2013 9:32am - August 13, 2013 12:15pm) No Discharge Instructions Reports. Social History Social History Visit/Account #[id number] (August 13, 2013 9:32am - August 13, 2013 12:15pm) Smoking Status Current every day smoker August 13, 2013 9:34am Immunizations Immunizations Patient Unit Number: [id number] Immunizations No Immunizations Administered
--- OUTSIDE RECORDS SUMMARY | 2016-06-25 15:53 | XMS REPORT | Continuity Of Care Document ---
Author Author [facility] Organization [facility] Address [address] [place] [address] Phone Care Team Providers Care Planer Tailer Name Role Phone UNASSIGNED, PHYSICIAN Unavailable Unavailable Liz CASTELAN DO AT Results Results No Result Data Allergies and Adverse Reactions Allergies and Adverse Reactions Patient Unit Number: [id number] Agent Type Reaction Severity Status Date NO KNOWN ALLERGIES Drug Allergy Unknown Mild Active Unknown Date Problem List Problem List Visit/Account #[id number] (April 21, 2014 1:09am - April 21, 2014 3:45am) Acute Problems: Code/Condition Comments Documented Start Date Documented Resolved Date Code (s) Asthma exacerbation ICD10: J45.901 Asthma with acute exacerbation ICD9: 493.92 Asthma with acute exacerbation SNOMED: 779852094 Asthma with acute exacerbation Headache ICD10: R51 Headache ICD9: 784.0 Headache SNOMED: 15702305 Headache Plan of Care Plan Of Care Visit/Account #[id number] (April 21, 2014 1:09am - April 21, 2014 3:45am) Instructions/Comments: DI for Asthma -- Adult Take azithromycin as prescribed.Take the prednisone daily for 4 more days, your next dose is tomorrow. Use your albuterol 2 puffs every 4-6 hours for 2 days, then as needed. Return to the emergency department for any concerns, followup with your Dr. as needed. Vital Signs Vital Signs Visit/Account #[id number] (April 21, 2014 1:09am - April 21, 2014 3:45am) Label First Result Last Result 8310-5: Body Temperature 97.5 degF April 21, 2014 1:08am 8310-5: Fahrenheit Body Temperature 98.6 [degF] April 21, 2014 3:45am 8480-6: BP Systolic 146/ mmHg April 21, 2014 1:08am 90/ mm[Hg] April 21, 2014 3:45am 8867-4: Heart Rate 103 /min April 21, 2014 1:08am 102 /min April 21, 2014 3:45am 9279-1: Respiratory Rate 18 /min April 21, 2014 1:08am 18 /min April 21, 2014 3:45am Unmapped Query Mnemonic (RESP.SAT) Saturation 98 % April 21, 2014 1:08am 98 % April 21, 2014 1:08am Functional Status Functional Status No Functional Status Data Medications Inpatient/Ordered Medications Visit/Account #[id number] (April 21, 2014 1:09am - April 21, 2014 3:45am) Medication Route Sig/Schedule Precondition/Indication Comments/Instructions Codes VENTOLIN 0.5% NEB(ALBUTEROL SULF) 2.5 MG/0.5 ML INHALER Total Dose: 5 ML INHALED NOW: NOW Rx Order Comments: Order placed as verified: Dose Warnings differ from will call order clerk VENTOLIN 0.5% NEB (ALBUTEROL SULF) RxNorm: J834603 VENTOLIN 0.5% NEB (ALBUTEROL SULF) NDC: 33696135989 ATROVENT 0.02% NEB(IPRATROPIUM BROMIDE) 0.5 MG/2.5 ML SOLUTION Total Dose: 0.5 MG INHALED NOW: NOW Rx Order Comments: Order placed as verified: Dose Warnings differ from will call order clerk ATROVENT 0.02% NEB (IPRATROPIUM BROMIDE) RxNorm: A800892 ATROVENT 0.02% NEB (IPRATROPIUM BROMIDE) NDC: 51953545124 Solu-MEDROL INJ(MethylPREDNISolone SOD SUCC) 125 MG/2 ML INJECTION Total Dose: 125 MG INTRAVEN NOW: NOW Rx Order Comments: Order placed as verified: Dose Warnings differ from will call order clerk Solu-MEDROL INJ (MethylPREDNISolone SOD SUCC) RxNorm: X796642 Solu-MEDROL INJ (MethylPREDNISolone SOD SUCC) RxNorm: M438536 Solu-MEDROL INJ (MethylPREDNISolone SOD SUCC) NDC: 34549155112 PHENERGAN INJ(PROMETHazine HCL) 25 MG/ML INJECTION Total Dose: 25 MG INTRAMUSC NOW: NOW Rx Order Comments: Order placed as verified: Dose Warnings differ from will call order clerk PHENERGAN INJ (PROMETHazine HCL) RxNorm: E286148 PHENERGAN INJ (PROMETHazine HCL) NDC: 63699266437 BENADRYL INJ(DiphenhydrAMINE HCL) 50 MG/ML INJECTION Total Dose: 50 MG INTRAVEN NOW: NOW Rx Order Comments: Order placed as verified: Dose Warnings differ from will call order clerk Label Comments: MAY INCREASE FALL RISK BENADRYL INJ (DiphenhydrAMINE HCL) RxNorm: I5857454 BENADRYL INJ (DiphenhydrAMINE HCL) NDC: 28108503688 IV Medication Carriers: MAGNESIUM SULFATE 2 GM/50 ML INJECTION Total Dose: 50 ML INTRAVEN NOW (Rate: 150 MLS/HR Duration: 20 MIN) Rx Order Comments: Order placed as verified: Dose Warnings differ from will call order clerk Carriers: (MAGNESIUM SULFATE) RxNorm: B657696 (MAGNESIUM SULFATE) NDC: 20333745188 Discharge Medications Visit/Account #[id number] (April 21, 2014 1:09am - April 21, 2014 3:45am) Medication Route Sig/Schedule Precondition/Indication Comments/Instructions Codes Prednisone(PredniSONE) 20 MG TAB ORAL DAILY: DAILY Prednisone (PredniSONE) RxNorm: R231195 Prednisone (PredniSONE) NDC: 80072906364 Zithromax (Z-Pack)(AZITHROMYCIN) 250 MG TAB ORAL DIRECTED: DIRECTED Rx Instructions: TAKE 2 TABLETS TODAY THEN 1 TABLET DAILY ON DAYS 2-5. Zithromax (Z-Pack) (AZITHROMYCIN) RxNorm: N591085 Zithromax (Z-Pack) (AZITHROMYCIN) RxNorm: S329284 Zithromax (Z-Pack) (AZITHROMYCIN) NDC: 57705692587 History Of Encounters Encounters Visit/Account #[id number] (April 21, 2014 1:09am - April 21, 2014 3:45am) Account Status Physican Of Record Reason For Visit Visit Diagnosis Start Date/Time Stop Date/Time JOSE CASTELAN DO HEADACHE 786.2: COUGH ICD9 Apr 21, 2014 1:09am Apr 21, 2014 3:45am History of Procedures Procedure List No Procedures Discharge Instructions Discharge Instructions Visit/Account #[id number] (April 21, 2014 1:09am - April 21, 2014 3:45am) No Discharge Instructions Reports. Social History Social History Visit/Account #[id number] (April 21, 2014 1:09am - April 21, 2014 3:45am) Smoking Status Current every day smoker April 21, 2014 1:14am Immunizations Immunizations Patient Unit Number: [id number] Immunizations No Immunizations Administered
--- OUTSIDE RECORDS SUMMARY | 2016-06-25 15:53 | XMS REPORT | Continuity Of Care Document ---
Author Author [facility] Organization [facility] Address [address] [place] [address] Phone Care Team Providers Care Farebox Repairer Name Role Phone Rose COFFMAN MD PP Liz LAMA MD AT YUDELKA TELLES Unavailable Liz CASTELAN DO Unavailable Results Results No Result Data Allergies and Adverse Reactions Allergies and Adverse Reactions Patient Unit Number: [id number] Agent Type Reaction Severity Status Date NO KNOWN ALLERGIES Drug Allergy Unknown Mild Active Unknown Date Problem List Problem List Visit/Account #[id number] (July 09, 2013 2:38pm - July 09, 2013 4:43pm) Acute Problems: Code/Condition Comments Documented Start Date Documented Resolved Date Code (s) Spinal headache ICD10: G97.1 Headache following lumbar puncture ICD9: 349.0 Headache following lumbar puncture SNOMED: 624004887 Headache following lumbar puncture Plan of Care Plan Of Care Visit/Account #[id number] (July 09, 2013 2:38pm - July 09, 2013 4:43pm) Instructions/Comments: DI for Post-Spinal Puncture Headache Follow with primary care DrHelena as needed. Drink a lot of oral fluids and take adequate rest. Return to the emergency room if symptoms worsens or has any concern. Vital Signs Vital Signs Visit/Account #[id number] (July 09, 2013 2:38pm - July 09, 2013 4:43pm) Label First Result Last Result 3141-9: Weight Measured 240 lbs July 09, 2013 2:37pm 108.812555 kg July 09, 2013 2:37pm 8310-5: Body Temperature 98.0 degF July 09, 2013 2:37pm 8310-5: Fahrenheit Body Temperature 98.7 [degF] July 09, 2013 4:42pm 8480-6: BP Systolic 108/ mmHg July 09, 2013 2:37pm 86/ mm[Hg] July 09, 2013 4:42pm 8867-4: Heart Rate 86 /min July 09, 2013 2:37pm 99 /min July 09, 2013 4:42pm 9279-1: Respiratory Rate 18 /min July 09, 2013 2:37pm 28 /min July 09, 2013 4:42pm Unmapped Query Mnemonic (RESP.SAT) Saturation 100 % July 09, 2013 2:37pm 100 % July 09, 2013 2:37pm Unmapped Query Mnemonic (VS.BMI) Body Mass Index (BMI) 38 July 09, 2013 2:37pm 38 July 09, 2013 2:37pm Functional Status Functional Status No Functional Status Data Medications Inpatient/Ordered Medications Visit/Account #[id number] (July 09, 2013 2:38pm - July 09, 2013 4:43pm) Medication Route Sig/Schedule Precondition/Indication Comments/Instructions Codes SUBLIMAZE INJ(FentaNYL CITRATE) 100 MCG/2 ML INJECTION Total Dose: 50 ML INTRAVEN NOW: NOW Rx Order Comments: Order placed as verified: Dose Warnings differ from customer orders clerk Dose Warnings differ from customer orders clerk Label Comments: MAY INCREASE FALL RISK SUBLIMAZE INJ (FentaNYL CITRATE) RxNorm: B629821 SUBLIMAZE INJ (FentaNYL CITRATE) NDC: 31609923420 ZOFRAN INJ(ONDansetron HCL) 4 MG/2 ML INJECTION Total Dose: 4 MG INTRAVEN JENNIFER: ONE TIME ORDER Rx Order Comments: Order placed as verified: Dose Warnings differ from customer orders clerk Dose Warnings differ from customer orders clerk Label Comments: SLOW IV PUSH MAY BE SUBSTITUTED FOR ANZEMET (DOLASETRON) MAY INCREASE FALL RISK ZOFRAN INJ (ONDansetron HCL) RxNorm: B045141 ZOFRAN INJ (ONDansetron HCL) NDC: 93162545647 IV Medication Carriers: NORMAL SALINE(SODIUM CHLORIDE) 1000 ML INJECTION Total Dose: 1000 ML INTRAVEN .Q1H (Rate: 1000 MLS/HR Duration: 1 HR) Rx Order Comments: Order placed as verified: Dose Warnings differ from customer orders clerk Dose Warnings differ from customer orders clerk Label Comments: Run at 1000 mL/hr for 30 minutes then reduce rate to 125 mL/hr until bag gone. Carriers: NORMAL SALINE (SODIUM CHLORIDE) RxNorm: D417845 NORMAL SALINE (SODIUM CHLORIDE) [facility]: [id number] History Of Encounters Encounters Visit/Account #[id number] (July 09, 2013 2:38pm - July 09, 2013 4:43pm) Account Status Physican Of Record Reason For Visit Visit Diagnosis Start Date/Time Stop Date/Time ER JACK LAMA MD LIGHTHEADED 784.0: HEADACHE ICD9 Jul 09, 2013 2:38pm Jul 09, 2013 4:43pm History of Procedures Procedure List No Procedures Discharge Instructions Discharge Instructions Visit/Account #[id number] (July 09, 2013 2:38pm - July 09, 2013 4:43pm) No Discharge Instructions Reports. Social History Social History No Social History Data Immunizations Immunizations Patient Unit Number: [id number] Immunizations No Immunizations Administered
--- OUTSIDE RECORDS SUMMARY | 2016-06-25 15:53 | XMS REPORT | Continuity Of Care Document ---
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 Role Phone UNASSIGNED, PHYSICIAN Unavailable Unavailable VIKI ODONNELL, M CP Carl MARTINEZ MD AT Results Lab Results Visit/Account #[id number] (August 21, 2013 9:11am - August 22, 2013 2:10pm) Test Result Date/Time 92859-0: COMPLETE BLOOD COUNT WITH DIFF WHITE BLOOD COUNT(4.0-11.0 10E3/UL) 5.9 10E3/UL August 21, 2013 9:57am RED BLOOD COUNT(4.00-5.20 10E6/UL) 4.60 10E6/UL August 21, 2013 9:57am HEMOGLOBIN(12.0-16.0 G/DL) 13.9 G/DL August 21, 2013 9:57am HEMATOCRIT(36.0-46.0 %) 38.6 % August 21, 2013 9:57am 54391-2: MEAN CORPUSCULAR VOLUME(82.0-100.0 FL) 83.9 FL August 21, 2013 9:57am 76099-4: MEAN CORPUSCULAR HEMOGLOBIN(26.0-34.0 PG) 30.2 PG August 21, 2013 9:57am MEAN CORPUSCULAR HGB CONC(31.5-36.5 G/DL) 36.0 G/DL August 21, 2013 9:57am RED CELL DISTRIBUTION WIDTH(11.5-14.5 %) 12.7 % August 21, 2013 9:57am 777-3: PLATELET COUNT(150-450 10E3/UL) 235 10E3/UL August 21, 2013 9:57am MEAN PLATELET VOLUME(8.2-12.4 FL) 9.6 FL August 21, 2013 9:57am 770-8: NEUTROPHILS % (AUTO)(40-70 %) 67 % August 21, 2013 9:57am LYMPHOCYTES % (AUTO)(15-45 %) 27 % August 21, 2013 9:57am 5905-5: MONOCYTES % (AUTO)(2-10 %) 5 % August 21, 2013 9:57am 713-8: EOSINOPHILS % (AUTO)(0-6 %) 1 % August 21, 2013 9:57am 706-2: BASOPHILS % (AUTO)(0-1 %) 0 % August 21, 2013 9:57am 93439-7: IMMATURE GRANS % (AUTO)(0-0 %) 0 % August 21, 2013 9:57am NUCLEATED RBCS (AUTO)(0-0 %) 0 % August 21, 2013 9:57am 751-8: NEUTROPHILS # (AUTO)(2.5-7.5 10E3/UL) 3.9 10E3/UL August 21, 2013 9:57am 57395-7: LYMPHOCYTES # (AUTO)(1.0-4.0 10E3/UL) 1.6 10E3/UL August 21, 2013 9:57am 742-7: MONOCYTES # (AUTO)(0.2-0.8 10E3/UL) 0.3 10E3/UL August 21, 2013 9:57am 711-2: EOSINOPHILS # (AUTO)(0.0-0.4 10E3/UL) 0.1 10E3/UL August 21, 2013 9:57am 704-7: BASOPHILS # (AUTO)(0.0-0.2 10E3/UL) 0.0 10E3/UL August 21, 2013 9:57am IMMATURE GRANS # (AUTO)(0.0-0.0 10E3/UL) 0.0 10E3/UL August 21, 2013 9:57am DIFF TYPE AUTOMATED August 21, 2013 9:57am CBC WITH REFLEXED MANUAL DIFF WHITE BLOOD COUNT(4.0-11.0 10E3/UL) 6.4 10E3/UL August 21, 2013 10:41pm RED BLOOD COUNT(4.00-5.20 10E6/UL) 4.49 10E6/UL August 21, 2013 10:41pm HEMOGLOBIN(12.0-16.0 G/DL) 13.6 G/DL August 21, 2013 10:41pm HEMATOCRIT(36.0-46.0 %) 38.0 % August 21, 2013 10:41pm 98112-7: MEAN CORPUSCULAR VOLUME(82.0-100.0 FL) 84.6 FL August 21, 2013 10:41pm 43977-6: MEAN CORPUSCULAR HEMOGLOBIN(26.0-34.0 PG) 30.3 PG August 21, 2013 10:41pm MEAN CORPUSCULAR HGB CONC(31.5-36.5 G/DL) 35.8 G/DL August 21, 2013 10:41pm RED CELL DISTRIBUTION WIDTH(11.5-14.5 %) 12.7 % August 21, 2013 10:41pm 777-3: PLATELET COUNT(150-450 10E3/UL) 219 10E3/UL August 21, 2013 10:41pm MEAN PLATELET VOLUME(8.2-12.4 FL) 10.1 FL August 21, 2013 10:41pm DIFF TYPE MANUAL August 21, 2013 10:41pm NEUTROPHIL % (MANUAL)(40-70 %) 93 % August 21, 2013 11:13pm LYMPHOCYTES % (MANUAL)(15-45 %) 6 % August 21, 2013 11:13pm MONOCYTES % (MANUAL)(2-10 %) 1 % August 21, 2013 11:13pm EOSINOPHILS % (MANUAL)(0-6 %) 0 % August 21, 2013 10:49pm 57731-6: BASOPHILS % (MANUAL)(0-1 %) 0 % August 21, 2013 10:49pm NUCLEATED RBCS (MANUAL)(0-0 %) 0 % August 21, 2013 10:49pm 753-4: NEUTROPHILS # (MANUAL)(2.5-7.5 10E3/UL) 6.0 10E3/UL August 21, 2013 11:13pm 732-8: LYMPHOCYTES # (MANUAL)(1.0-4.0 10E3/UL) 0.4 10E3/UL August 21, 2013 11:13pm 743-5: MONOCYTES # (MANUAL)(0.2-0.8 10E3/UL) 0.1 10E3/UL August 21, 2013 11:13pm 705-4: BASOPHILS # (MANUAL)(0.0-0.2 10E3/UL) 0.0 10E3/UL August 21, 2013 10:49pm 9317-9: PLATELET ESTIMATE ADEQUATE August 21, 2013 11:13pm 04155-7: WBC MORPHOLOGY COMMENT NORMAL August 21, 2013 10:49pm 6742-1: RBC MORPHOLOGY COMMENT NORMAL August 21, 2013 10:49pm 36336-3: PLATELET MORPHOLOGY COMMENT NORMAL August 21, 2013 10:49pm 79682-3: PROTHROMBIN TIME WITH INR PROTHROMBIN TIME(12.1-14.0 SEC) 13.1 SEC August 21, 2013 10:04am 64641-6: INR 1.01 Result Comments: INR reference interval applies to patients on anticoagulant therapy. Suggested INR therapeutic range for oral anticoagulant therapy: (Stabilized anticoagulated patients) Routine Therapy: 2.0 to 3.0 Recurrent Myocardial Infarction: 2.5 to 3.5 Mechanical Prosthetic Valves: 2.5 to 3.5 August 21, 2013 10:04am PARTIAL THROMBOPLASTIN TIME PARTIAL THROMBOPLASTIN TIME(22.2-37.4 SEC) 26.6 SEC August 21, 2013 10:05am 07006-2: D-DIMER 31296-6: D-DIMER(0.00-0.49 UG/ML) 0.31 UG/ML August 21, 2013 11:59am 58957-5: COMPLETE METABOLIC PROFILE 01644-7: GLUCOSE(70-110 MG/DL) 112 MG/DL August 21, 2013 10:23am 185 MG/DL August 21, 2013 11:27pm BLOOD UREA NITROGEN(6-20 MG/DL) 17 MG/DL August 21, 2013 10:23am 25 MG/DL August 21, 2013 11:27pm 21300-4: CREATININE(0.50-1.20 MG/DL) 0.82 MG/DL August 21, 2013 10:23am 1.17 MG/DL August 21, 2013 11:27pm 23009-0: EST GLOMERULAR FILTRATION RATE(Greater than or equal to 60) Greater than or equal to 60 Result Comments: If the patient is of -Stateless descent/extraction multiply the eGFR value by 1.212 to obtain the actual eGFR. >=60 mg/dL Normal 30-59 mg/dL Moderate Kidney Disease 15-29 mg/dL Severe Kidney Disease <15 mg/dL Kidney Failure August 21, 2013 10:23am 50 Result Comments: If the patient is of -Stateless descent/extraction multiply the eGFR value by 1.212 to obtain the actual eGFR. >=60 mg/dL Normal 30-59 mg/dL Moderate Kidney Disease 15-29 mg/dL Severe Kidney Disease <15 mg/dL Kidney Failure August 21, 2013 11:27pm BUN CREATININE RATIO(10.0-20.0 RATIO) 21.0 RATIO August 21, 2013 10:23am 21.0 RATIO August 21, 2013 11:27pm 86088-7: SODIUM(135-145 MMOL/L) 136 MMOL/L August 21, 2013 10:23am 136 MMOL/L August 21, 2013 11:27pm 44716-4: POTASSIUM(3.6-5.0 MMOL/L) 3.7 MMOL/L August 21, 2013 10:23am 4.3 MMOL/L August 21, 2013 11:27pm 04143-4: CHLORIDE(101-111 MMOL/L) 106 MMOL/L August 21, 2013 10:23am 104 MMOL/L August 21, 2013 11:27pm 8-9: CO2(21-31 MMOL/L) 23.0 MMOL/L August 21, 2013 10:23am 24.0 MMOL/L August 21, 2013 11:27pm 38266-4: ANION GAP(8-18) 11 August 21, 2013 10:23am 12 August 21, 2013 11:27pm OSMO CALCULATED(270.0-290.0) 274.3 August 21, 2013 10:23am 281.2 August 21, 2013 11:27pm CALCIUM(8.5-10.5 MG/DL) 9.0 MG/DL August 21, 2013 10:23am 8.8 MG/DL August 21, 2013 11:27pm 93371-2: BILIRUBIN,TOTAL(0.1-1.2 MG/DL) 0.8 MG/DL August 21, 2013 10:23am 0.4 MG/DL August 21, 2013 11:27pm ALKALINE PHOSPHATASE(42-121 U/L) 74 U/L August 21, 2013 10:23am 75 U/L August 21, 2013 11:27pm ASPARTATE AMINO TRANSFERASE(10-42 U/L) 13 U/L August 21, 2013 10:23am 17 U/L August 21, 2013 11:27pm ALANINE AMINOTRANSFERASE(10-60 U/L) 17 U/L August 21, 2013 10:23am 19 U/L August 21, 2013 11:27pm 08585-5: TOTAL PROTEIN(6.4-8.2 G/DL) 7.1 G/DL August 21, 2013 10:23am 7.3 G/DL August 21, 2013 11:27pm ALBUMIN(3.5-5.5 G/DL) 3.9 G/DL August 21, 2013 10:23am 3.9 G/DL August 21, 2013 11:27pm 2336-6: GLOBULIN(2.4-3.6) 3.2 August 21, 2013 10:23am 3.4 August 21, 2013 11:27pm 1759-0: ALBUMIN/GLOBULIN RATIO(0.9-1.8 RATIO) 1.2 RATIO August 21, 2013 10:23am 1.1 RATIO August 21, 2013 11:27pm TOTAL CPK TOTAL CPK(22-269 U/L) 115 U/L August 21, 2013 10:23am 97 U/L August 21, 2013 5:05pm 80 U/L August 21, 2013 11:27pm CPK MB CPK MB(0.6-6.3 NG/ML) 1.0 NG/ML August 21, 2013 10:23am 1.0 NG/ML August 21, 2013 5:05pm 1.0 NG/ML August 21, 2013 11:27pm 74953-1: CARDIAC TROPONIN I 19297-3: CARDIAC TROPONIN I(0.01-0.04 NG/ML) Less than 0.01 NG/ML Result Comments: REFERENCE RANGES: NEGATIVE < 0.04 NG/ML POSSIBLE MYCARDIAL INVOLVEMENT >/=0.04 NG/ML INTERPRET TROPONIN I RESULT IN LIGHT OF THE TOTAL CLINICAL PRESENTATION INCLUDING CLINICAL HISTORY. ANY CONDITION RESULTING IN MYOCARDIAL INJURY CAN POTENTIALLY ELEVATE TROPONIN I LEVELS ABOVE EXPECTED NORMAL RANGES. NOTE NEW REFERENCE RANGE August 21, 2013 10:23am Less than 0.01 NG/ML Result Comments: REFERENCE RANGES: NEGATIVE < 0.04 NG/ML POSSIBLE MYCARDIAL INVOLVEMENT >/=0.04 NG/ML INTERPRET TROPONIN I RESULT IN LIGHT OF THE TOTAL CLINICAL PRESENTATION INCLUDING CLINICAL HISTORY. ANY CONDITION RESULTING IN MYOCARDIAL INJURY CAN POTENTIALLY ELEVATE TROPONIN I LEVELS ABOVE EXPECTED NORMAL RANGES. NOTE NEW REFERENCE RANGE August 21, 2013 5:05pm Less than 0.01 NG/ML Result Comments: REFERENCE RANGES: NEGATIVE < 0.04 NG/ML POSSIBLE MYCARDIAL INVOLVEMENT >/=0.04 NG/ML INTERPRET TROPONIN I RESULT IN LIGHT OF THE TOTAL CLINICAL PRESENTATION INCLUDING CLINICAL HISTORY. ANY CONDITION RESULTING IN MYOCARDIAL INJURY CAN POTENTIALLY ELEVATE TROPONIN I LEVELS ABOVE EXPECTED NORMAL RANGES. NOTE NEW REFERENCE RANGE August 21, 2013 11:27pm 68835-9: LIPID PROFILE 89502-6: TRIGLYCERIDES(35-160 MG/DL) 85 MG/DL August 21, 2013 11:27pm 83760-4: CHOLESTEROL(0-200 MG/DL) 206 MG/DL August 21, 2013 11:27pm LDL CHOLESTEROL,DIRECT(0-99 MG/DL) 138 MG/DL August 21, 2013 11:27pm VLDL CHOLESTEROL(1-53 MG/DL) 17 MG/DL August 21, 2013 11:27pm HDL CHOLESTEROL(35-85 MG/DL) 55 MG/DL August 21, 2013 11:27pm CHOL/HDL RATIO(0.0-4.4 RATIO) 3.8 RATIO August 21, 2013 11:27pm THYROID STIMULATING HORMONE THYROID STIMULATING HORMONE(0.340-5.600 uIU/ML) 0.530 uIU/ML August 21, 2013 11:31pm GLYCOHEMOGLOBIN A1C 4548-4: %A1C(4.6-6.2 %) 5.3 % August 22, 2013 9:01am Microbiology Results Visit/Account #[id number] (August 21, 2013 9:11am - August 22, 2013 2:10pm) Procedure Result 37927-5: MRSA SCREEN FOR INFEC CONTROL 96927-8: MRSA SCREEN FOR INFEC CONTROL Result Instance On August 23, 2013 11:11am Source: [facility] Special Result Comments: No growth Allergies and Adverse Reactions Allergies and Adverse Reactions Patient Unit Number: [id number] Agent Type Reaction Severity Status Date NO KNOWN ALLERGIES Drug Allergy Unknown Mild Active Unknown Date Problem List Problem List Visit/Account #[id number] (August 21, 2013 9:11am - August 22, 2013 2:10pm) Acute Problems: Code/Condition Comments Documented Start Date Documented Resolved Date Code (s) Chest pain August 21, 2013 ICD10: R07.9 Chest pain ICD9: 786.50 Chest pain SNOMED: 89702598 Chest pain Chest pain ICD10: R07.9 Chest pain ICD9: 786.50 Chest pain SNOMED: 58955573 Chest pain JASSON (obstructive sleep apnea) ICD10: G47.33 Obstructive sleep apnea syndrome ICD9: 327.23 Obstructive sleep apnea syndrome SNOMED: 16308775 Obstructive sleep apnea syndrome DM type 2 (diabetes mellitus, type 2) ICD10: E11.9 Type 2 diabetes mellitus ICD9: 250.00 Type 2 diabetes mellitus SNOMED: 90610304 Type 2 diabetes mellitus Hyperlipemia ICD10: E78.5 Hyperlipidemia ICD9: 272.4 Hyperlipidemia SNOMED: 91650204 Hyperlipidemia Plan of Care Plan Of Care Visit/Account #[id number] (August 21, 2013 9:11am - August 22, 2013 2:10pm) Instructions/Comments: DI for Chest Pain Prednisone Guaifenesin Aspirin Ipratropium Oral Inhalation Levofloxacin Vital Signs Vital Signs Visit/Account #[id number] (August 21, 2013 9:11am - August 22, 2013 2:10pm) Label First Result Last Result 2710-2: O2% 100 % August 21, 2013 12:15pm 91 % August 22, 2013 6:00am 3141-9: Weight Measured 237 lbs August 21, 2013 9:11am 107.793096 kg August 21, 2013 9:11am 8310-5: Body Temperature 98.2 degF August 21, 2013 9:11am 8310-5: Celsius Body Temperature 35.80042 Alyse August 21, 2013 12:15pm 35.16770 Alyse August 22, 2013 6:00am 8310-5: Fahrenheit Body Temperature 96.0 [degF] August 22, 2013 6:00am 8480-6: BP Systolic 127/ mmHg August 21, 2013 9:11am 128/73 mm[Hg] August 22, 2013 6:00am 8867-4: Heart Rate 84 /min August 21, 2013 9:11am 66 /min August 22, 2013 6:00am 9279-1: Respiratory Rate 24 /min August 21, 2013 9:11am 20 /min August 22, 2013 6:00am Unmapped Query Mnemonic (RESP.SAT) Saturation 98 % August 21, 2013 9:11am 98 % August 21, 2013 9:11am Unmapped Query Mnemonic (VS.BMI) Body Mass Index (BMI) 46 August 21, 2013 9:11am 46 August 21, 2013 9:11am Functional Status Functional Status No Functional Status Data Medications Home Medications Visit/Account #[id number] (August 21, 2013 9:11am - August 22, 2013 2:10pm) Medication Route Sig/Schedule Precondition/Indication Comments/Instructions Codes GLUCOPHAGE(MetFORMin HCL) 500 MG TAB ORAL BIDWM: WITH BREAKFAST & SUPPER GLUCOPHAGE (MetFORMin HCL) RxNorm: T931820 GLUCOPHAGE (MetFORMin HCL) RxNorm: A443400 GLUCOPHAGE (MetFORMin HCL) NDC: 96420372211 Lisinopril(LISINOPRIL) 20 MG TABLET ORAL DAILY: DAILY Lisinopril (LISINOPRIL) RxNorm: I649035 Lisinopril (LISINOPRIL) NDC: 91395900829 VENTOLIN 0.5% NEBS (use for MED REC)(ALBUTEROL SULF) 2.5 MG/0.5 ML INHALER INHALED 4XD: 4 TIMES DAILY VENTOLIN 0.5% NEBS (use for MED REC) (ALBUTEROL SULF) RxNorm: F421475 VENTOLIN 0.5% NEBS (use for MED REC) (ALBUTEROL SULF) NDC: 57814602488 PHENERGAN W/CODEINE 6.25-10 MG/5 ML SYRUP(PROMETHazine/CODEINE) 120 ML SYRUP ORAL Q8S: EVERY 8 HOURS PHENERGAN W/CODEINE 6.25-10 MG/5 ML SYRUP (PROMETHazine/CODEINE) RxNorm: S165706 PHENERGAN W/CODEINE 6.25-10 MG/5 ML SYRUP (PROMETHazine/CODEINE) NDC: 21807139548 LEVAQUIN(LEVOFLOXACIN) 500 MG TAB ORAL DAILY@10 LEVAQUIN (LEVOFLOXACIN) RxNorm: P425530 LEVAQUIN (LEVOFLOXACIN) RxNorm: E932515 LEVAQUIN (LEVOFLOXACIN) NDC: 08965407210 Aspirin Chew(ASPIRIN) 81 MG TAB ORAL DAILY: DAILY Aspirin Chew (ASPIRIN) NDC: 58716508377 DELTASONE(PredniSONE) 20 MG TAB ORAL DAILYB: DAILY AT [facility] Rx Instructions: Take 60 mg daily for 3 days then, take 40 mg daily for 3 days then, take 20 mg daily for 3 days then, take 10 mg daily until gone. DELTASONE (PredniSONE) RxNorm: H236877 DELTASONE (PredniSONE) NDC: 82959138178 Inpatient/Ordered Medications Visit/Account #[id number] (August 21, 2013 9:11am - August 22, 2013 2:10pm) Medication Route Sig/Schedule Precondition/Indication Comments/Instructions Codes ASPIRIN 324 MG TAB Total Dose: 324 MG Route .STK-MED (ASPIRIN) RxNorm: D062721 (ASPIRIN) NDC: 69962445873 ATROVENT 0.02% NEB(IPRATROPIUM BROMIDE) 0.5 MG/2.5 ML SOLUTION Total Dose: 0.5 MG INHALED NOW: NOW Rx Order Comments: Order placed as verified: Dose Warnings differ from medical orderly ATROVENT 0.02% NEB (IPRATROPIUM BROMIDE) RxNorm: P016097 ATROVENT 0.02% NEB (IPRATROPIUM BROMIDE) NDC: 77818220571 XOPENEX NEB(LEVALBUTEROL) 1.25 MG/0.5 ML NEBULE Total Dose: 1.25 MG INHALED NOW: NOW Rx Order Comments: Order placed as verified: Dose Warnings differ from medical orderly XOPENEX NEB (LEVALBUTEROL) RxNorm: K491410 XOPENEX NEB (LEVALBUTEROL) RxNorm: L630937 XOPENEX NEB (LEVALBUTEROL) NDC: 45770261083 NITROQUICK(NITROGLYCERIN) 0.4 MG/TAB TAB Total Dose: 0.4 TAB SUBLINGUAL NOW: NOW Rx Order Comments: Order placed as verified: Dose Warnings differ from medical orderly Label Comments: *DOSE 1* Do NOT give until approved by physician. Give every 3-5 minutes if needed for ongoing symptons. Max of 3 doses. Do NOT give unless: Heart rate 50-100 beats per minute SBP is greater than 90 mmHg and/or no lower than 20 mmHg below baseline Do NOT give if: inferior KS or RV infarction recent phosphodesterase inhibito use (e.g. Viagra, Levitra, Revatio) within last 24 hours or Cialis within last 48 hours. NITROQUICK (NITROGLYCERIN) RxNorm: U436469 NITROQUICK (NITROGLYCERIN) RxNorm: E881946 NITROQUICK (NITROGLYCERIN) NDC: 10443136961 NITROQUICK(NITROGLYCERIN) 0.4 MG/TAB TAB Total Dose: 0.4 TAB SUBLINGUAL NOW: NOW Rx Order Comments: Order placed as verified: Allergies/Duplicates/Interactions differ from medical orderly Label Comments: *DOSE 2* Give every 3-5 minutes if needed for ongoing symptons. Max of 3 doses. Do NOT give unless: Heart rate 50-100 beats per minute SBP is greater than 90 mmHg and/or no lower than 20 mmHg below baseline Do NOT give if: inferior KS or RV infarction recent phosphodesterase inhibito use (e.g. Viagra, Levitra, Revatio) within last 24 hours or Cialis within last 48 hours. NITROQUICK (NITROGLYCERIN) RxNorm: G978356 NITROQUICK (NITROGLYCERIN) RxNorm: Y364267 NITROQUICK (NITROGLYCERIN) NDC: 11120626285 NITROQUICK(NITROGLYCERIN) 0.4 MG/TAB TAB Total Dose: 0.4 TAB SUBLINGUAL NOW: NOW Rx Order Comments: Order placed as verified: Allergies/Duplicates/Interactions differ from medical orderly Label Comments: *DOSE 3* Give every 3-5 minutes if needed for ongoing symptons. Max of 3 doses. Do NOT give unless: Heart rate 50-100 beats per minute SBP is greater than 90 mmHg and/or no lower than 20 mmHg below baseline Do NOT give if: inferior KS or RV infarction recent phosphodesterase inhibito use (e.g. Viagra, Levitra, Revatio) within last 24 hours or Cialis within last 48 hours. NITROQUICK (NITROGLYCERIN) RxNorm: K249911 NITROQUICK (NITROGLYCERIN) RxNorm: B823264 NITROQUICK (NITROGLYCERIN) NDC: 68884870199 MORPHINE SULFATE 4 MG/ML INJECTION Total Dose: 2 ML INTRAVEN RTQ2WA: Q 2 HR WA PRN Reason: PRN Reason: CHEST PAIN Label Comments: not relieved by nitroglycerin (MORPHINE SULFATE) RxNorm: Q018952 (MORPHINE SULFATE) NDC: 10107896590 LOVENOX(ENOXAPARIN) 120 MG/0.8 ML INJECTION Total Dose: 105 ML SUBCUTANEOUSLY Q12H Label Comments: INJECT SC INTO ABDOMINAL WALL ONLY. DOSED AT __MG/KG BASED ON PT WEIGHT OF __KG AND ROUNDED PER PROTOCOL. LOVENOX (ENOXAPARIN) RxNorm: D616093 LOVENOX (ENOXAPARIN) RxNorm: I398026 LOVENOX (ENOXAPARIN) NDC: 46372737636 ASPIRIN 81 MG TAB Total Dose: 81 MG ORAL DAILY: DAILY (ASPIRIN) RxNorm: X510531 (ASPIRIN) NDC: 69425459766 DELTASONE(PredniSONE) 20 MG TAB Total Dose: 60 MG ORAL DAILYB: DAILY AT [facility] Label Comments: TAKE WITH FOOD OR MILK DELTASONE (PredniSONE) RxNorm: E434791 DELTASONE (PredniSONE) NDC: 17136845406 VENTOLIN 0.5% NEB(ALBUTEROL SULF) 2.5 MG/0.5 ML INHALER Total Dose: 2.5 MG INHALED Q6H VENTOLIN 0.5% NEB (ALBUTEROL SULF) RxNorm: U871922 VENTOLIN 0.5% NEB (ALBUTEROL SULF) NDC: 01686208307 SPIRIVA(TIOTROPIUM) 18 MCG/CAP CAP Total Dose: 18 MCG INHALED RTDAILY: DAILY Label Comments: INHALE CONTENTS OF ONE CAPSULE WITH HANDIHALER SPIRIVA (TIOTROPIUM) RxNorm: B944856 SPIRIVA (TIOTROPIUM) RxNorm: K915568 SPIRIVA (TIOTROPIUM) NDC: 79832992522 LEVAQUIN(LEVOFLOXACIN) 500 MG TAB Total Dose: 500 MG ORAL DAILY@10 Label Comments: Take 2 hrs before or after antacids, sucralfate, metal cations(iron), or multi-vitamins LEVAQUIN (LEVOFLOXACIN) RxNorm: Q506539 LEVAQUIN (LEVOFLOXACIN) RxNorm: U807995 LEVAQUIN (LEVOFLOXACIN) NDC: 25091889052 ZESTRIL(LISINOPRIL) 20 MG TAB Total Dose: 20 MG ORAL DAILY: DAILY ZESTRIL (LISINOPRIL) RxNorm: C863929 ZESTRIL (LISINOPRIL) NDC: 17382806277 ATROVENT 0.02% NEB(IPRATROPIUM BROMIDE) 0.5 MG/2.5 ML SOLUTION Total Dose: 0.5 MG INHALED Q6H ATROVENT 0.02% NEB (IPRATROPIUM BROMIDE) RxNorm: A981747 ATROVENT 0.02% NEB (IPRATROPIUM BROMIDE) NDC: 20992792310 Discharge Medications Visit/Account #[id number] (August 21, 2013 9:11am - August 22, 2013 2:10pm) Medication Route Sig/Schedule Precondition/Indication Comments/Instructions Codes GLUCOPHAGE(MetFORMin HCL) 500 MG TAB ORAL BIDWM: WITH BREAKFAST & SUPPER GLUCOPHAGE (MetFORMin HCL) RxNorm: N893861 GLUCOPHAGE (MetFORMin HCL) RxNorm: H521798 GLUCOPHAGE (MetFORMin HCL) NDC: 56851596174 Lisinopril(LISINOPRIL) 20 MG TABLET ORAL DAILY: DAILY Lisinopril (LISINOPRIL) RxNorm: R638487 Lisinopril (LISINOPRIL) NDC: 93368466307 VENTOLIN 0.5% NEBS (use for MED REC)(ALBUTEROL SULF) 2.5 MG/0.5 ML INHALER INHALED 4XD: 4 TIMES DAILY VENTOLIN 0.5% NEBS (use for MED REC) (ALBUTEROL SULF) RxNorm: H818099 VENTOLIN 0.5% NEBS (use for MED REC) (ALBUTEROL SULF) NDC: 16869814674 LEVAQUIN(LEVOFLOXACIN) 500 MG TAB ORAL DAILY@10 LEVAQUIN (LEVOFLOXACIN) RxNorm: Q913757 LEVAQUIN (LEVOFLOXACIN) RxNorm: D818393 LEVAQUIN (LEVOFLOXACIN) NDC: 95549341467 ATROVENT 0.02% NEB(IPRATROPIUM BROMIDE) 0.5 MG/2.5 ML SOLUTION INHALED Q6H ATROVENT 0.02% NEB (IPRATROPIUM BROMIDE) RxNorm: W618841 ATROVENT 0.02% NEB (IPRATROPIUM BROMIDE) NDC: 59465090659 VENTOLIN 0.5% NEBS (use for MED REC)(ALBUTEROL SULF) 2.5 MG/0.5 ML INHALER INHALED Q6H VENTOLIN 0.5% NEBS (use for MED REC) (ALBUTEROL SULF) RxNorm: M171034 VENTOLIN 0.5% NEBS (use for MED REC) (ALBUTEROL SULF) NDC: 17940632680 VENTOLIN 0.5% NEBS (use for MED REC)(ALBUTEROL SULF) 2.5 MG/0.5 ML INHALER INHALED Q2H VENTOLIN 0.5% NEBS (use for MED REC) (ALBUTEROL SULF) RxNorm: D947019 VENTOLIN 0.5% NEBS (use for MED REC) (ALBUTEROL SULF) NDC: 53927678188 Aspirin Chew(ASPIRIN) 81 MG TAB ORAL DAILY: DAILY Aspirin Chew (ASPIRIN) NDC: 09510673575 DELTASONE(PredniSONE) 20 MG TAB ORAL DAILYB: DAILY AT [facility] Rx Instructions: Take 60 mg daily for 3 days then, take 40 mg daily for 3 days then, take 20 mg daily for 3 days then, take 10 mg daily until gone. 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 Social History Social History Visit/Account #[id number] (August 21, 2013 9:11am - August 22, 2013 2:10pm) Smoking Status Current every day smoker August 21, 2013 9:15am Current every day smoker August 21, 2013 2:43pm Immunizations Immunizations Patient Unit Number: [id number] Immunizations No Immunizations Administered
[2016-06-25 16:28] LABS: BLOOD, URINE 3+ (NEGATIVE); COLOR,URINE YELLOW (YELLOW); LEUKOCYTE ESTERASE ,URINE NEGATIVE (NEGATIVE); NITRITE,URINE NEGATIVE (NEGATIVE); UROBILINOGEN,URINE 0.2 EU/DL (NORMAL)
[2016-06-25 16:43] LABS: BACTERIA,URINE 1+ (NEGATIVE)
--- NOTE | 2016-06-25 16:57 | NUR ---
DR DR ROSENTHAL IN ROOM.
[2016-06-25] MEDS ORDERED: ALBU18HF2 ORAL INH (17:09)
--- NOTE | 2016-06-25 17:09 | NUR ---
CNMT AT BEDSIDE FOR VENIPUNCTURE.
[2016-06-25] MEDS ORDERED: PRED20TA PO (17:10)
--- OUTSIDE RECORDS SUMMARY | 2016-06-25 17:16 | XMS REPORT | Continuity of Care Document ---
Author Author [facility] Organization [facility] Address Unknown Phone Unavailable Support Name Relationship Address Phone OTHER Caregiver Unknown [phone] PEDRO GREEN MD Caregiver [address] [place] [address] [place] [phone] JANI DU Next Of Kin ALESSANDRA JOVEL [place] [phone] Insurance Providers Payer Name Policy Number Subscriber [...] F (96.8 - 99.1) Temperature (Calculated Celsius) [phone] degrees C (36.0 - 37.3) Pulse Rate [...] 03, 2014 10:06am 0.92 MIU/L N 0.47-4.68 HX-Txn-O-Type Natriuretic Peptide June 03, 2014 10:06am 67 [...] H 65-110 Name: JENNIFER DU Unit #: [id number] : 1970 Sex: F Loc / Svc: ED DOS: 06/03/14 Signed Report #: [id number] DIAGNOSTIC IMAGING REPORT TYPE OF EXAM: CHEST, [...] Encounters Encounter Location Date/Time Departed Emergency Room [facility] 06/03/14 8:50am Recent Diagnosis
--- NOTE | 2016-06-25 17:20 | NUR ---
CT PT TO CT.
[2016-06-25 17:22] LABS: BASOPHILS % (AUTO) 0.5 % (0-2); EOSINOPHILS # (AUTO) 0.2 T/MM3 (0-0.5); EOSINOPHILS % (AUTO) 3.9 % (0-4); HCT - HEMATOCRIT 37.8 % (36-46); HGB - HEMOGLOBIN 13.6 GM/DL (12-16); IMMATURE GRANULOCYTE # (AUTO) 0.01 T/MM3 (0.00-0.03); IMMATURE GRANULOCYTE % (AUTO) 0.2 % (0.0-0.5); LYMPHOCYTES # (AUTO) 1.9 T/MM3 (1-4.8); LYMPHOCYTES % (AUTO) 30.4 % (23-45); MEAN CORPUSCULAR HGB 30.5 UUG (26-34); MEAN CORPUSCULAR VOLUME 84.8 UM3 (80-100); MEAN PLATELET VOLUME 9.8 UM3 (9.4-12.4); MONOCYTES # (AUTO) 0.4 T/MM3 (0-0.8); MONOCYTES % (AUTO) 6.2 % (0-9.0); NEUTROPHILS #(AUTO)-ABSOLUTE 3.6 T/MM3 (1.8-7.7); NEUTROPHILS % (AUTO) 58.8 % (33-66); RED BLOOD COUNT 4.46 M/MM3 (4.00-5.20); WBC - WHITE BLOOD COUNT 6.1 T/MM3 (4.5-11.0)
--- NOTE | 2016-06-25 17:30 | NUR ---
CT PT RETURNED.
[2016-06-25 17:32] LABS: ALBUMIN 3.8 G/DL (3.5-5.0); ALKALINE PHOSPHATASE 74 U/L (38-126); ALT (SGPT) 27 U/L (9-52); ANION GAP 9 MEQ/L (5-15); AST (SGOT) 15 U/L (14-36); BUN/CREATININE RATIO 9 RATIO (6-26); CALCIUM 8.9 MG/DL (8.4-10.2); CHLORIDE 103 MEQ/L (98-107); CO2 - CARBON DIOXIDE 28 MEQ/L (22-30); GLOMERULAR FILTRATION RATE 59; GLUCOSE 153 MG/DL (65-110); LIPASE 102 U/L (23-300); SODIUM 140 MEQ/L (134-144); TOTAL PROTEIN 7.5 G/DL (6.3-8.2)
[2016-06-25 18:02] VITALS: TEMP 98.2
--- NOTE | 2016-06-25 18:03 | NUR ---
STATUS PT RESTING CALMLY IN BED. PT REPORTS PAIN "SILL AN 8." TO LOW ABD/GROIN.
--- NOTE | 2016-06-25 18:16 | NUR ---
DR DR ROSENTHAL AT BEDSIDE.
[2016-06-25] MEDS ORDERED: HYDR-4246 PO (18:23)
--- NOTE | 2016-06-25 18:23 | ERPDOC ---
Departure Disposition Decision Date: Jun 25, 2016 Disposition Decision Time: 18:22 Disposition: 01 DISCHARGED HOME, SELF-CARE Impression Impression Impression: Primary Impression: Hematuria Severity: Mild Condition: Improved Seen By: Physician only Referrals: OTHER (Family) [facility] 2 Days Patient Instructions: Hematuria (ED) Problems/Meds/Labs Reviewed?: Yes Medications reviewed and manag: Yes Follow up care ordered?: Yes Mental Status: Alert, Oriented Scripts Hydrocodone/Acetaminophen ([place] 5-325 Tablet) 5-325 Tablet 1 TAB PO Q4HR Y for PAIN for 2 Days, #12 TAB 0 Refills Prov: ZHOU ROSENTHAL DO 06/25/16 HPI - General Medical General Chief Complaint: Female Urogenital Problems Stated Complaint: BLOOD IN URINE Time Seen by Provider: 16:36 Source: patient Exam Limitations: no limitations HPI - General Medical Initial Comments 45-year-old female presents to the emergency department with a chief complaint of dark colored urine. Patient has had a history of similar symptoms in the past and had hematuria at that point. She denies any true pain or discomfort at this time. Patient noted onset of symptoms one day ago. Symptoms have been persistent in nature since onset. She does not note anything that makes her symptoms any better or any worse. Patient is not anticoagulated. She was at home when her symptoms began. Occurred At: home Onset: Gradual Allergies: Coded Allergies: sulfamethoxazole (Verified Allergy, Unknown, 06/25/16) trimethoprim (Verified Allergy, Unknown, 06/25/16) Past History Past Medical History Cardiac: CHF Respiratory: COPD, pulmonary embolus Hematologic: DVT Surgical History Reproductive/: hysterectomy Family History Family History: Negative Social History Smoking Status: Current some day smoker Substance Use Type: does not use Alcohol Intake: none Review of Systems Constitutional Constitutional: DENIES: chills, fever Eyes General: DENIES: erythema, exudate Lids/Accessories: DENIES: erythema, swelling Vision: DENIES: acuity, blurring ENMT Ears: DENIES: drainage, erythema Hearing: DENIES: hearing loss Balance: DENIES: ataxia, falling to one side Sinuses: DENIES: congestion, pain Nose: DENIES: nosebleeds, pain Mouth/Throat: DENIES: painful swallowing, sore throat Teeth: DENIES: pain Jaw: DENIES: pain Cardiovascular Cardiac: DENIES: chest pain, dyspnea on exertion Rhythm/Rate: DENIES: irregular beat, palpitations Vascular: DENIES: pedal edema, unilateral swelling Pulmonary Respiratory: DENIES: cough, dyspnea, pleuritic chest pain, sputum GI Upper Abdomen: DENIES: nausea, pain, vomiting Lower Abdomen: DENIES: diarrhea, pain General: DENIES: dysuria, pain Musculoskeletal General: DENIES: pain, tenderness Integumentary Skin: DENIES: itching, rash Neurological General: DENIES: headache, numbness, weakness Psychiatric Psychiatric: DENIES: emotional instability, suicidal ideation/attempt Endocrine Endocrine: DENIES: polydipsia, polyphagia Hematologic/Lymphatic Hematologic/Lymphatic: DENIES: frequent nosebleeds, lymphadenopathy Allergic/Immunological Allergic/Immunoligical: DENIES: allergic reactions, hives Physical Exam General General Nourishment: well nourished, well developed, appears stated age, no acute distress, adult General Body Habitus: well groomed Vitals and Pain First Documented Vital Signs Date Time Temp Pulse Resp B/P Pulse Ox O2 Delivery O2 Flow Rate FiO2 06/25/16 15:52 98.6 88 22 171/103 98 Room Air Weight: Kilograms: 122.200 Height (feet): 5 Height (inches): 0 Triage Pain Scale: RN VS reviewed by Provider: Yes Normal Exams: Head: Normocephalic w/o trauma Eyes: Pupils are PERRLA w/ EOMI, No scleral icterus, irritation, or foreign bodies noted ENMT: No facial trauma, nasal exudates, pharyngeal erythema, or exudates are noted Dental: No fractured, loose, or missing teeth noted Neck: Full range of motion, without adenopathy, JVD, bruits or thyromegaly Chest/Resp: Clear all [place], with good airflow, and symmetry bilaterally CV: Regular rate and rhythm, without murmur or gallop, Pulses 2+ all extremities, capillary refill, <2 seconds all ext., no pedal edema noted Abdomen: Bowel sounds positive, soft, non-tender, non-distended, no hepatosplenomegaly, masses or bruits noted Lymphatic: No lymphadenopathy, or lymphedema noted Musculoskeletal: No tenderness, or deformity noted, good range of motion, all extremities Integumentary: No rashes, hives, or bruising noted, hair and nails, without abnormality Neurologic: Patient is alert, and oriented, cranial nerves, motor/sensory/ cerebellar, exams w/o gross deficits, to observation Psychiatric: Patient exhibits, appropriate attention, emotion and affect Abdomen (brief) Comments NO CVAT. (brief) Comments Pelvic exam declined by patient. Differential Diagnoses Considering: Other (UTI/cystitis/pyelonephritis/renal stone) Progress Results/Orders Orders Procedure Category Date Status Time UA, LAB 06/25/16 Complete Dip&Micro(Complete) & 16:22 Cbc W/Auto LAB 06/25/16 Complete Diff-Reflex Manual Cmp - Comprehensive LAB 06/25/16 Complete Metabolic Lipase LAB 06/25/[address] Abd/Pelvis W/O CT 06/25/16 Taken Contrast 16:58 Hydrocodone/Acetaminophen PHA 06/25/16 Complete ([place] 5/325) 18:30 Lab Results Laboratory Tests Test 06/25/16 16:22 06/25/16 17:18 Urine Collection Type Voided-not cc-midstr Urine Color Yellow Urine Turbidity Clear Urine pH 6.5 Urine Specific [place] 1.015 Urine Protein 2+ Urine Glucose (UA) Negative Urine Ketones Negative Urine Blood 3+ Urine Nitrite Negative Urine Bilirubin Negative Urine Urobilinogen 0.2EU/DL Urine Leukocyte Esterase Negative Urine RBC 3-5/HPF Urine WBC 3-5/HPF Urine Squamous Epithelial Cells 5-10 Urine Bacteria 1+ Urine Culture Indicated Cult not indicated White Blood Count 6.1T/MM3 Red Blood Count 4.46M/MM3 Hemoglobin 13.6GM/DL Hematocrit 37.8% Mean Corpuscular Volume 84.8UM3 Mean Corpuscular Hemoglobin 30.5UUG Mean Corpuscular Hemoglobin Concent 36.0GM/DL RDW Standard Deviation 38.1FL Platelet Count 263T/MM3 Mean Platelet Volume 9.8UM3 Immature Granulocyte % (Auto) 0.2% Neutrophils (%) (Auto) 58.8% Lymphocytes (%) (Auto) 30.4% Monocytes (%) (Auto) 6.2% Eosinophils (%) (Auto) 3.9% Basophils (%) (Auto) 0.5% Absolute Immature Granulocyte (auto 0.01T/MM3 Absolute Neutrophils (auto) 3.6T/MM3 Absolute Lymphocytes (auto) 1.9T/MM3 Absolute Monocytes (auto) 0.4T/MM3 Absolute Eosinophils (auto) 0.2T/MM3 Absolute Basophils (auto) 0.0T/MM3 Turbidity < 20 Sodium Level 140MEQ/L Potassium Level 4.0MEQ/L Chloride Level 103MEQ/L Carbon Dioxide Level 28MEQ/L Anion Gap 9MEQ/L Blood Urea Nitrogen 9.0MG/DL Creatinine 1.0MG/DL Glomerular Filtration Rate Calc 59 BUN/Creatinine Ratio 9RATIO Glucose Level 153MG/DL Calculated Osmolality 271MOSM/KG Calcium Level 8.9MG/DL Total Bilirubin 0.50MG/DL Icterus Index < 2 Aspartate Amino Transf (AST/SGOT) 15U/L Alanine Aminotransferase (ALT/SGPT) 27U/L Alkaline Phosphatase 74U/L Total Protein 7.5G/DL Albumin 3.8G/DL Globulin 3.7G/DL Albumin/Globulin Ratio 1.0RATIO Lipase 102U/L Chemistry Specimen Hemolysis < 15 Medications Current ED Medications Acetaminophen/ Hydrocodone Bitart ([place] 5/325) 1 tab O ONCE PO Last administered on 06/25/16t 18:30; Start 06/25/16 at 18:30; Stop 06/25/16 at 18:31 ; Status DC Progress Progress Labs/imaging were discussed in detail with the patient and questions are answered. Patient does not have any symptoms consistent with a urinary tract infection. The bacteria in the urine is most likely a contaminant from the epithelial cells present. Patient is discharged home in improved condition. Patient is to follow up as instructed. Patient is in agreement with the current plan of management. Patient is to return to the emergency Department if her condition worsens or changes in any manner. CT CT : CT: Abd/Pelvis no contrast Interpretation: Normal, Reviewed Written Report ZHOU ROSENTHAL DO Jun 25, 2016 18:23
[2016-06-25] MEDS ORDERED: HYDROCODONE/APAP 5 mg/325 mg TABLET PO ONE (18:30)
[2016-06-25 18:31] VITALS: BP 160/110; PULSE 87; RESP 20; O2SAT 96
--- NOTE | 2016-06-26 09:20 | DI ---
Indication: ITS.REASON: 45-year-old female with hematuria PROCEDURE: CT ABD/PELVIS W/O CONTRAST: Encounter: Initial Comparison: None Technique: Axial CT images were performed through the abdomen and pelvis without intravenous contrast. Coronal and sagittal two-dimensional reformats. Automated Exposure Control and Iterative Reconstruction dose reducing techniques were utilized. Findings: The lung bases are clear. Liver, spleen, pancreas, adrenal glands, and kidneys have a normal nonenhanced appearance. The right kidney is rotated on its vascular axis. Gallbladder unremarkable. In terms of the bowel, there is moderate stool throughout the colon. Normal appendix is noted in the right lower quadrant. No inflammatory changes about the various bowel loops. No obstruction identified. No free fluid, free air, or intra-abdominal inflammatory process. There is a large fat-containing umbilical hernia which is lobular but contains no bowel loops. Urinary bladder and reproductive viscera unremarkable. Bone window review demonstrates no significant abnormality with mild degenerative changes of the lower dorsal spine. Impression: 1. Negative for acute abdominal or pelvic inflammatory process. 2. Nonsignificant incidental findings as described above. Findings in agreement with interpretation by [facility] at time of service. .
== END 2016-06-25 18:35 | disposition home or self-care (01) ==
LOC: ED 15:48
DX: R31.9 Hematuria, unspecified (principal); I10 Essential (primary) hypertension
CPT/HCPCS: 36415; 80053; 81001; 83690; 85025